=== PATIENT | male | born 1950 | race Hispanic/Latino ===

== ENCOUNTER 2018-09-21 13:08 | Emergency (ER) | payer OTHER ==
--- OUTSIDE RECORDS SUMMARY | 2018-09-21 13:11 | XMS REPORT | Clinical Summary ---
:1950 Author Organization [facility] Address [address] [place] [address] Care Team Providers Name Role Phone Sergio Morgan DO Primary Care Provider Allergies Not on File Medications No known medications Active Problems No known active problems Encounters Date Type Specialty Care Team Description 05/10/2018 Hospital Encounter Radiology Ankur Olivas MD 05/10/2018 Office Visit Orthopedic Surgery Ankur Olivas Metastatic bone MD Shaunna cancer (HCC) (Primary Dx) 05/03/2018 Office Visit Orthopedic Surgery Ankur Olivas Metastatic naeem Maza MD cancer (HCC) (Primary Dx) 02/01/2018 Orders Only Orthopedic Surgery Ankur Olivas Metastatic naeem Maza MD cancer (HCC) (Primary Dx) 01/18/2018 Office Visit Orthopedic Surgery Ankur Olivas Metastatic naeem Maza MD cancer (HCC) (Primary Dx) after 09/20/2017 Family History Medical History Relation Name Comments Diabetes Mother Alie Relation Name Status Comments Mother Alie Social History Tobacco Use Types Packs/Day Years Used Date Former Smoker Cigarettes 1 5 02/21/1974 - 02/21/1979 Sex Assigned at Date Recorded Not on file Job Start Date Occupation Industry Not on file Not on file Not on file Travel History Travel Start Travel End No recent travel history available. Last Filed Vital Signs Not on file Plan of Treatment Health Maintenance Due Date Last Done Comments COLONOSCOPY SCREENING 2002 SHINGLES VACCINES (#1) 2002 65+ PNEUMOCOCCAL VACCINE (1 of 2 - PCV13) 2017 INFLUENZA VACCINE 09/21/2018 Procedures Procedure Name Priority Date/Time Associated Diagnosis Comments XR FEMUR 2 VW LEFT Routine 05/03/2018 11:03 AM Metastatic bone Results for this CDT cancer (HCC) procedure are in the results section. CT CHEST EXTERNAL Routine 04/11/2018 9:09 AM Results for this STUDY LICENSED PRACTICAL NURSE procedure are in the results section. XR FEMUR 2 VW LEFT Routine 01/18/2018 1:46 PM Metastatic bone Results for this LICENSED PRACTICAL NURSE cancer (HCC) procedure are in the results section. after 09/20/2017 Results XR Femur 2 Vw Left (05/03/2018 11:03 AM CDT)Only the most recent of2 resultswithin the time period is included. Specimen Narrative Performed At [facility] lateral left femur x-ray and AP pelvis x-ray shows significant blastic [facility] changes throughout the pelvis and the left intertrochanteric area and proximal femur.There is no evidence of progressive tumor or progressive instability or fractures or other acute changes. Performing Organization Address [facility] Phone Number [facility] [address] [place] [address] CT Chest External Study (04/11/2018 9:09 AM LICENSED PRACTICAL NURSE) Specimen Narrative Performed At This exam was not acquired at a Amish facility and has not been [facility] interpreted by a Amish Provider.The exam was imported into our imaging system for comparisons purposes. Performing Organization Address City/[facility]ode Phone Number [facility] [address] [place] [address] after 09/20/2017 Advance Directives Patient has advance care planning documents on file. For more information, please contact:[address] [address]
[2018-09-21] MEDS ORDERED: NA CHLORIDE 0.9% 2,000 ML ONE (15:12)
[2018-09-21 15:31] LABS: Absolute Lymphocytes (CBC) 0.8 K/uL (0.7-4.9); Basophils % 0.5 % (0-1.3); Hematocrit 39.6 % (39.6-49.0); Lymphocytes % 16.9 % (15.3-44.8); MPV 8.9 fL (7.6-11.3); RBC Red Blood Cell Count 4.58 M/uL (4.33-5.43)
[2018-09-21 15:37] LABS: Protime INR 1.02
[2018-09-21 16:09] LABS: ALT/SGPT 17 U/L (12-78); AST/SGOT 13 U/L (15-37); Albumin 3.4 g/dL (3.4-5.0); Alkaline Phosphatase 1038 U/L (45-117); BUN Blood Urea Nitrogen 18 mg/dL (7-18); Bicarbonate 26 mmol/L (21-32); Bilirubin Direct 0.2 mg/dL (0-0.2); Bilirubin Total 0.8 mg/dL (0.2-1.0); CKMB Creatine Kinase MB < 1.0 ng/mL (0.3-3.6); Creatine Phosphokinase 68 U/L (39-308); Glucose Level 232 mg/dL (74-106); Lipase 107 U/L (73-393); Potassium 4.2 mmol/L (3.5-5.1); Protein, Total 7.4 g/dL (6.4-8.2); Sodium Level 136 mmol/L (136-145); Troponin (Emerg Dept Use Only) < 0.02 ng/mL (0.0-0.045)
[2018-09-21] MEDS ORDERED: FENTANYL CITR 100 MCG/2 ML ONE (16:12)
[2018-09-21] MEDS ORDERED: ONDANSETRON 4 MG/2 ML VIAL ONE (16:12)
[2018-09-21 16:39] LABS: Urine Blood NEGATIVE (NEG); Urine Glucose 2+ (NEG); Urine Protein 1+ (NEG)
[2018-09-21 17:00] LABS: Urine Bacteria <20 /HPF (NONE SEEN); Urine Culture Reflex Order NOT NEEDED; Urine RBC <5 /HPF (NONE SEEN)
--- NOTE | 2018-09-21 17:22 | EDPHYS ---
Physician Documentation [facility] Name: Shantanu Bernal Age: 68 yrs Sex: Male : 1950 Arrival Date: 09/21/2018 Time: 13:09 Bed 23 Private MD: ED Physician Cruz Bowen HPI: 09/21 16:13 This 68 yrs old Male presents to ER via Ambulatory with complaints of Doesn't jr8 Feel Right. 16:13 Patient with history of metastatic prostate cancer. Stated that he is currently doing jr8 both chemo and radiation along with infusions for bone metastates. Stated he feels more fatigued then normal . Onset: The symptoms/episode began/occurred acutely, today. Severity of symptoms: At their worst the symptoms were mild in the emergency department the symptoms are unchanged. The patient has not experienced similar symptoms in the past. The patient has not recently seen a physician. Historical: - Allergies: 13:27 No Known Allergies; aa5 - Home Meds: 13:27 metformin 1,000 mg Oral tr24 twice a day [Active]; glipizide 5 mg oral tr24 twice a day aa5 [Active]; Tylenol #3 Oral every 4-6 hours [Active]; prednisone 5 mg Oral tab 1 tab 2 times per day [Active]; enalapril maleate 10 mg Oral tab once daily [Active]; tamsulosin 0.4 mg oral cp24 1 cap once daily [Active]; calcium 500mg with Vitamin D3 400units [Active]; 13:30 abiraterone oral 250mg oral 2 tabs twice a day [Active]; aa5 - PMHx: 13:27 Prostate Cancer with metastasis to the bone; Diabetes - NIDDM; aa5 13:28 Hypertension; aa5 - Immunization history:: Adult Immunizations unknown. - Social history:: Smoking status: Patient/guardian denies using tobacco. - Ebola Screening: : No symptoms or risks identified at this time. ROS: 16:13 Eyes: Negative for injury, pain, redness, and discharge, ENT: Negative for injury, jr8 pain, and discharge, Neck: Negative for injury, pain, and swelling, Cardiovascular: Negative for chest pain, palpitations, and edema, Respiratory: Negative for shortness of breath, cough, wheezing, and pleuritic chest pain, Abdomen/GI: Negative for abdominal pain, nausea, vomiting, diarrhea, and constipation, Back: Negative for injury and pain, MS/Extremity: Negative for injury and deformity, Skin: Negative for injury, rash, and discoloration, Neuro: Negative for headache, weakness, numbness, tingling, and seizure. 16:13 Constitutional: Positive for fatigue. Exam: 16:13 Eyes: Pupils equal round and reactive to light, extra-ocular motions intact. Lids and jr8 lashes normal. Conjunctiva and sclera are non-icteric and not injected. Cornea within normal limits. Periorbital areas with no swelling, redness, or edema. ENT: Nares patent. No nasal discharge, no septal abnormalities noted. Tympanic membranes are normal and external auditory canals are clear. Oropharynx with no redness, swelling, or masses, exudates, or evidence of obstruction, uvula midline. Mucous membranes moist. Neck: Trachea midline, no thyromegaly or masses palpated, and no cervical lymphadenopathy. Supple, full range of motion without nuchal rigidity, or vertebral point tenderness. No Meningismus. Cardiovascular: Regular rate and rhythm with a normal S1 and S2. No gallops, murmurs, or rubs. Normal PMI, no JVD. No pulse deficits. Respiratory: Lungs have equal breath sounds bilaterally, clear to auscultation and percussion. No rales, rhonchi or wheezes noted. No increased work of breathing, no retractions or nasal flaring. Abdomen/GI: Soft, non-tender, with normal bowel sounds. No distension or tympany. No guarding or rebound. No evidence of tenderness throughout. Back: No spinal tenderness. No costovertebral tenderness. Full range of motion. Skin: Warm, dry with normal turgor. Normal color with no rashes, no lesions, and no evidence of cellulitis. MS/ Extremity: Pulses equal, no cyanosis. Neurovascular intact. Full, normal range of motion. Neuro: Awake and alert, GCS 15, oriented to person, place, time, and situation. Cranial nerves II-XII grossly intact. Motor strength 5/5 in all extremities. Sensory grossly intact. Cerebellar exam normal. Normal gait. Vital Signs: 13:23 BP 138 / 79; Pulse 101; Resp 18 S; Temp 99.5(O); Pulse Ox 97% on R/A; Weight 70.31 kg aa5 (R); Height 5 ft. 2 in. (157.48 cm) (R); Pain 8/10; 14:21 BP 117 / 66; Pulse 91; Resp 17; Temp 98.8(O); Pulse Ox 99% on R/A; tw2 15:17 BP 126 / 71; Pulse 98; Resp 19; Temp 98.5(O); Pulse Ox 100% on R/A; tw2 16:18 BP 148 / 74; Pulse 95; Resp 17; Pulse Ox 97% on R/A; tw2 17:01 BP 143 / 75; Pulse 91; Resp 17; Pulse Ox 98% on R/A; tw2 13:23 Body Mass Index 28.35 (70.31 kg, 157.48 cm) aa5 MDM: 14:57 Patient medically screened. 8 17:08 Data reviewed: vital signs, nurses notes, lab test result(s), EKG, radiologic studies, jr8 plain films. Data interpreted: Pulse oximetry: on room air is 98 %. Interpretation: normal. Counseling: I had a detailed discussion with the patient and/or guardian regarding: the historical points, exam findings, and any diagnostic results supporting the discharge/admit diagnosis, lab results, radiology results, the need for outpatient follow up, a family practitioner, to return to the emergency department if symptoms worsen or persist or if there are any questions or concerns that arise at home. ED course: No acute findings on labs, ecg, or imaging. No signs or indication for sepsis or neutropenia. Hemodynamically stable. Will d/c home to f/u with oncology and PCP. Fatigue probably sequela of the chemotherapy treatment . 09/21 15:03 Order name: Basic Metabolic Panel; Complete Time: 16:13 09/21 15:03 Order name: Blood Culture Adult (2) 09/21 15:03 Order name: CBC with Diff; Complete Time: 15:49 09/21 15:03 Order name: Ckmb; Complete Time: 16:13 09/21 15:03 Order name: CPK; Complete Time: 16:13 09/21 15:03 Order name: Lactate; Complete Time: 15:52 09/21 15:03 Order name: LFT's; Complete Time: 16:13 09/21 15:03 Order name: Lipase; Complete Time: 16:13 09/21 15:03 Order name: Procalcitonin; Complete Time: 16:13 09/21 15:03 Order name: Protime (+inr); Complete Time: 15:49 09/21 15:03 Order name: Ptt, Activated; Complete Time: 15:49 09/21 15:03 Order name: Troponin (emerg Dept Use Only); Complete Time: 16:13 09/21 15:03 Order name: Urine Microscopic Only; Complete Time: 17:08 09/21 15:22 Order name: Glucose, Ancillary Testing; Complete Time: 15:49 EDMS 09/21 15:03 Order name: Chest Single View XRAY 09/21 15:03 Order name: Accucheck; Complete Time: 15:15 09/21 15:03 Order name: Cardiac monitoring; Complete Time: 15:17 09/21 15:03 Order name: EKG - Nurse/Tech; Complete Time: 15:17 09/21 15:03 Order name: IV Saline Lock - Large Bore; Complete Time: 15:15 09/21 15:03 Order name: Labs collected and sent; Complete Time: 15:15 09/21 15:03 Order name: O2 Per Protocol; Complete Time: 15:15 09/21 15:03 Order name: O2 Sat Monitoring; Complete Time: 15:15 09/21 15:03 Order name: Urine Dipstick-Ancillary (obtain specimen); Complete Time: 16:26 09/21 16:25 Order name: Urine Dipstick--Ancillary (enter results); Complete Time: 16:50 eb Administered Medications: 15:16 Drug: NS 0.9% (30 ml/kg) 30 ml/kg Route: IV; Rate: bolus; Site: right antecubital; tw2 16:24 Follow up: Response: No adverse reaction; IV Status: Completed infusion; IV Intake: tw2 2000ml 16:15 Drug: Zofran 4 mg Route: IVP; Site: right antecubital; tw2 17:19 Follow up: Response: No adverse reaction tw2 16:17 Drug: fentaNYL (PF) 50 mcg Route: IVP; Site: right antecubital; tw2 17:19 Follow up: Response: No adverse reaction; Pain is decreased tw2 Point of Care Testing: Blood Glucose: 15:13 Blood Glucose: 268 mg/dL; lt1 Ranges: Critical Glucose Levels:Adult <50 mg/dl or >400 mg/dl <40 mg/dl or >180 mg/dl Disposition: 09/21/18 17:21 Discharged to Home. Impression: Neoplastic (malignant) related fatigue. - Condition is Stable. - Discharge Instructions: Fatigue. - Medication Reconciliation Form, Thank You Letter, Antibiotic Education, Prescription Opioid Use form. - Follow up: Private Physician; When: 2 - 3 days; Reason: Recheck today's complaints, Continuance of care, Re-evaluation by your physician. - Problem is new. - Symptoms have improved. Signatures: Dispatcher [employer] EDZeenat Lew RN RN aa5 Ja Barboza PA PA jr8 Katy Joy RN RN tw2 Corrections: (The following items were deleted from the chart) 13:30 13:27 Home Meds: oral chemotherapy; [email or web address] aa5 17:37 17:21 09/21/2018 17:21 Discharged to Home. Impression: Neoplastic (malignant) related tw2 fatigue. Condition is Stable. Forms are Medication Reconciliation Form, Thank You Letter, Antibiotic Education, Prescription Opioid Use. Follow up: Private Physician; When: 2 - 3 days; Reason: Recheck today's complaints, Continuance of care, Re-evaluation by your physician. Problem is new. Symptoms have improved. jr8
--- NOTE | 2018-09-21 17:22 | ER ---
Nurse's Notes [facility] Name: Shantanu Bernal Age: 68 yrs Sex: Male : 1950 Arrival Date: 09/21/2018 Time: 13:09 Bed 23 Private MD: Diagnosis: Neoplastic (malignant) related fatigue Presentation: 09/21 13:21 Presenting complaint: Patient states: "I've been feeling really tired and weak since aa5 Tuesday and my whole body hurts". Pt reports hx of prostate cancer and is currently taking oral chemotherapy. Pt denies cough, vomiting, diarrhea. Reports nausea. Transition of care: patient was not received from another setting of care. Onset of symptoms was August 2018. Risk Assessment: Do you want to hurt yourself or someone else? Patient reports no desire to harm self or others. Care prior to arrival: None. 13:21 Method Of Arrival: Ambulatory [facility] 13:21 Acuity: ERICA 2 aa5 13:23 Initial Sepsis Screen: Does the patient meet any 2 criteria? HR > 90 bpm. Does the aa5 patient have a suspected source of infection? No. Patient's initial sepsis screen is negative. Historical: - Allergies: 13:27 No Known Allergies; aa5 - Home Meds: 13:27 metformin 1,000 mg Oral tr24 twice a day [Active]; glipizide 5 mg oral tr24 twice a day aa5 [Active]; Tylenol #3 Oral every 4-6 hours [Active]; prednisone 5 mg Oral tab 1 tab 2 times per day [Active]; enalapril maleate 10 mg Oral tab once daily [Active]; tamsulosin 0.4 mg oral cp24 1 cap once daily [Active]; calcium 500mg with Vitamin D3 400units [Active]; 13:30 abiraterone oral 250mg oral 2 tabs twice a day [Active]; aa5 - PMHx: 13:27 Prostate Cancer with metastasis to the bone; Diabetes - NIDDM; aa5 13:28 Hypertension; aa5 - Immunization history:: Adult Immunizations unknown. - Social history:: Smoking status: Patient/guardian denies using tobacco. - Ebola Screening: : No symptoms or risks identified at this time. Screenin:13 Abuse screen: Denies threats or abuse. Nutritional screening: No deficits noted. tw2 Tuberculosis screening: No symptoms or risk factors identified. Fall Risk Secondary diagnosis (15 points) impaired mobility. Assessment: 14:22 General: Appears ill, slender, Behavior is calm, cooperative, appropriate for age. tw2 Pain: Complains of pain in "whole body". Neuro: Level of Consciousness is awake, alert, obeys commands, Oriented to person, place, time, situation. Cardiovascular: Heart tones S1 S2 Patient's skin is warm and dry. Respiratory: Airway is patent Respiratory effort is even, unlabored, Respiratory pattern is regular, symmetrical, Breath sounds are clear bilaterally. GI: No signs and/or symptoms were reported involving the gastrointestinal system. Abdomen is flat, Bowel sounds present X 4 quads. : No signs and/or symptoms were reported regarding the genitourinary system. EENT: No signs and/or symptoms were reported regarding the EENT system. Derm: No signs and/or symptoms reported regarding the dermatologic system. Musculoskeletal: Range of motion: intact in all extremities. 15:18 Reassessment: Patient appears in no apparent distress at this time. No changes from tw2 previously documented assessment. Patient and/or family updated on plan of care and expected duration. Pain level reassessed. 16:10 Reassessment: Patient and/or family updated on plan of care and expected duration. Pain tw2 level reassessed. pt c/o pain, provider notified, will medicate as ordered. Patient states symptoms have not improved. 17:33 Reassessment: Patient appears in no apparent distress at this time. No changes from tw2 previously documented assessment. Patient and/or family updated on plan of care and expected duration. Pain level reassessed. Vital Signs: 13:23 BP 138 / 79; Pulse 101; Resp 18 S; Temp 99.5(O); Pulse Ox 97% on R/A; Weight 70.31 kg aa5 (R); Height 5 ft. 2 in. (157.48 cm) (R); Pain 8/10; 14:21 BP 117 / 66; Pulse 91; Resp 17; Temp 98.8(O); Pulse Ox 99% on R/A; tw2 15:17 BP 126 / 71; Pulse 98; Resp 19; Temp 98.5(O); Pulse Ox 100% on R/A; tw2 16:18 BP 148 / 74; Pulse 95; Resp 17; Pulse Ox 97% on R/A; tw2 17:01 BP 143 / 75; Pulse 91; Resp 17; Pulse Ox 98% on R/A; tw2 13:23 Body Mass Index 28.35 (70.31 kg, 157.48 cm) aa5 ED Course: 13:09 Patient arrived in ED. as 13:23 Arm band placed on. aa5 13:28 Triage completed. aa5 14:13 Katy Joy, RN is Primary Nurse. tw2 14:13 Placed in gown. Bed in low position. audit intern on. Pulse ox on. NIBP on. tw2 14:57 Ja Barboza PA is PHCP. jr8 14:57 Cruz Bowen MD is Attending Physician. jr8 15:10 Initial lab(s) drawn, by me, sent to lab. First set of blood cultures drawn. Inserted tw2 saline lock: 20 gauge in right antecubital area, using aseptic technique. Blood collected. 15:28 EKG done, by process safety engineering technologist. reviewed by Ja CHOI. sm3 15:48 Chest Single View XRAY In Process Unspecified. EDMS 16:26 Urine Microscopic Only Sent. tw2 17:33 No provider procedures requiring assistance completed. IV discontinued, intact, tw2 bleeding controlled, No redness/swelling at site. Pressure dressing applied. Administered Medications: 15:16 Drug: NS 0.9% (30 ml/kg) 30 ml/kg Route: IV; Rate: bolus; Site: right antecubital; tw2 16:24 Follow up: Response: No adverse reaction; IV Status: Completed infusion; IV Intake: tw2 2000ml 16:15 Drug: Zofran 4 mg Route: IVP; Site: right antecubital; tw2 17:19 Follow up: Response: No adverse reaction tw2 16:17 Drug: fentaNYL (PF) 50 mcg Route: IVP; Site: right antecubital; tw2 17:19 Follow up: Response: No adverse reaction; Pain is decreased tw2 Point of Care Testing: Blood Glucose: 15:13 Blood Glucose: 268 mg/dL; lt1 Ranges: Intake: 16:24 IV: 2000ml; Total: 2000ml. tw2 Output: 16:23 Urine: 200ml (Voided); Total: 200ml. tw2 Outcome: 17:21 Discharge ordered by MD. harrington 17:34 Discharged to home via wheelchair, with family. tw2 17:34 Condition: stable 17:34 Discharge instructions given to patient, family, Instructed on discharge instructions, follow up and referral plans. Demonstrated understanding of instructions, follow-up care. 17:37 Patient left the ED. tw2 Signatures: Dispatcher [employer] EDSusan Najera Audri, RN RN aa5 Ja Barboza PA PA jr8 Katy Joy RN RN tw2 Bonita Mattson 3 Birgit Reynolds 1 Corrections: (The following items were deleted from the chart) 13:30 13:27 Home Meds: oral chemotherapy; aa5 aa5 16:25 16:18 BP 148 / 74; Pulse 108bpm; Resp 17bpm; Pulse Ox 97% RA; tw2 tw2
--- NOTE | 2018-09-21 18:53 | RAD REPORT ---
EXAM DESCRIPTION: Ori Single View09/21/2018 3:48 pm CLINICAL HISTORY: Fever COMPARISON: none FINDINGS: The lungs appear clear of acute infiltrate. The heart is normal size. Sclerotic bony metastases present
--- NOTE | 2018-09-22 12:36 | EKG ---
Test Date: 2018-09-21 Test Time: 15:18:31 Carder Blankets: HALIMA MEASUREMENT RESULTS: Intervals: Rate: 91 KS: 140 QRSD: 72 QT: 358 QTc: 440 [place]: P: 65 KS: 140 QRS: 52 T: 25 INTERPRETIVE STATEMENTS: Normal sinus rhythm Normal ECG No previous ECG available for comparison Electronically Signed On 09-22-18 12:33:04 CDT by Prasanna Grullon
== END 2018-09-21 17:37 | disposition home or self-care (01) ==
LOC: ER 13:08
DX: R53.83 Other fatigue (principal); C61 Malignant neoplasm of prostate; C79.51 Secondary malignant neoplasm of bone; E11.9 Type 2 diabetes mellitus without complications; I10 Essential (primary) hypertension; Z79.84 Long term (current) use of oral hypoglycemic drugs
CPT/HCPCS: 96365; 93005; 87040 ×2; 85025; 80048; 36415; 82550; 85610; 82962; 80076; 83605; 85730; 84484; 82553; 83690; 84145; 71045; 96375; 99285; J3010; J7030; J2405; 81003; 81015

== ENCOUNTER 2018-11-12 18:48 | Emergency (ER) | payer OTHER ==
--- OUTSIDE RECORDS SUMMARY | 2018-11-12 18:51 | XMS REPORT | Clinical Summary ---
:1950 Author Organization [facility] Address [address] [place] [address] Care Team Providers Name Role Phone Sergio [...] Maza MD cancer (HCC) (Primary Dx) after 11/11/2017 Family History Medical History Relation Name Comments [...] 04/11/2018 9:09 AM Results for this STUDY CHIEF ESTIMATOR procedure are in the results section. XR FEMUR 2 VW LEFT Routine 01/18/2018 1:46 PM Metastatic bone Results for this CHIEF ESTIMATOR cancer (HCC) procedure are in the results section. after 11/11/2017 Results XR Femur 2 Vw Left (05/03/2018 [...] or other acute changes. Performing Organization Address City/[facility] Phone Number [facility] [address] [place] [address] CT Chest External Study (04/11/2018 9:09 AM CHIEF ESTIMATOR) Specimen Narrative Performed At This exam was not acquired at a Taoism facility and has not been [facility] interpreted by a Taoism Provider.The exam was imported into our imaging system for comparisons purposes. Performing Organization Address City/[facility] Cent[facility]ode Phone Number [facility] [address] [place] [address] after 11/11/2017 Advance Directives For more information, please contact: [phone] Type Date Recorded Patient Manager Operating Explanation Advance Directives, Living Will and Medical Power of Business Dean
[2018-11-12] MEDS ORDERED: ONDANSETRON 4 MG/2 ML VIAL ONE (19:39)
[2018-11-12] MEDS ORDERED: MORPHINE 4 MG/ML SYR ONE (19:39)
[2018-11-12] MEDS ORDERED: FENTANYL CITR 100 MCG/2 ML ONE (21:04)
--- NOTE | 2018-11-12 21:28 | ER ---
Nurse's Notes [facility] Name: Shantanu Bernal Age: 68 yrs Sex: Male : 1950 Arrival Date: 11/12/2018 Time: 18:51 Bed 15 Private MD: Unknown, Unknown Diagnosis: Low back pain;Chronic back pain Presentation: 11/12 18:54 Presenting complaint: Child states: Lower back has been hurting badly since Tuesday la1 night. Transition of care: patient was not received from another setting of care. Onset of symptoms was November 12, 2018. Risk Assessment: Do you want to hurt yourself or someone else? Patient reports no desire to harm self or others. Initial Sepsis Screen: Does the patient meet any 2 criteria? No. Patient's initial sepsis screen is negative. Does the patient have a suspected source of infection? No. Patient's initial sepsis screen is negative. Care prior to arrival: None. 18:54 Method Of Arrival: Wheelchair la1 18:54 Acuity: ERICA 3 la1 Historical: - Allergies: 18:54 No Known Allergies; la1 - PMHx: 18:54 Diabetes - NIDDM; Hypertension; Prostate Cancer with metastasis to the bone; la1 - Immunization history:: Adult Immunizations up to date. - Social history:: Smoking status: unknown. - Ebola Screening: : No symptoms or risks identified at this time. Screenin:45 Abuse screen: Denies threats or abuse. Nutritional screening: No deficits noted. jb4 Tuberculosis screening: No symptoms or risk factors identified. Fall Risk IV access (20 points). Total Nunez Fall Scale indicates No Risk (0-24 pts). Assessment: 19:15 General: Appears in no apparent distress. uncomfortable, Behavior is calm, cooperative, jb4 appropriate for age, PT reports having a diagnoses of bone cancer. Is trying to manage pain at home, pain medications are not helping today.. Pain: Complains of pain in low back area, right leg and left leg Pain does not radiate. Pain currently is 10 out of 10 on a pain scale. Quality of pain is described as stabbing. Neuro: Level of Consciousness is awake, alert, obeys commands, Oriented to person, place, time, situation. Cardiovascular: Patient's skin is warm and dry. Respiratory: Airway is patent Respiratory effort is even, unlabored, Respiratory pattern is regular, symmetrical. GI: No deficits noted. No signs and/or symptoms were reported involving the gastrointestinal system. : No deficits noted. No signs and/or symptoms were reported regarding the genitourinary system. EENT: No deficits noted. No signs and/or symptoms were reported regarding the EENT system. Derm: Skin is intact, Skin is pink, warm \T\ dry. Musculoskeletal: Circulation, motion, and sensation intact. Range of motion: intact in all extremities. 20:30 Reassessment: Patient appears in no apparent distress at this time. Patient and/or jb4 family updated on plan of care and expected duration. Pain level reassessed. Patient is alert, oriented x 3, equal unlabored respirations, skin warm/dry/pink. 20:45 Reassessment: PT reports that morphine did not help, provider notified see [facility] for jb4 orders. 21:55 Reassessment: Patient appears in no apparent distress at this time. Patient and/or jb4 family updated on plan of care and expected duration. Pain level reassessed. Patient is alert, oriented x 3, equal unlabored respirations, skin warm/dry/pink. Vital Signs: 18:55 BP 171 / 82; Pulse 79; Resp 16; Temp 97.4; Pulse Ox 100% on R/A; Weight 63.05 kg; la1 Height 5 ft. 5 in. (165.10 cm); 20:30 BP 160 / 72; Pulse 76; Resp 18; Pulse Ox 98% on R/A; jb4 21:30 BP 158 / 65; Pulse 72; Resp 16; Pulse Ox 96% on R/A; jb4 18:55 Body Mass Index 23.13 (63.05 kg, 165.10 cm) la1 ED Course: 18:51 Patient arrived in ED. ag5 18:52 Unknown, Unknown is Private Physician. ag5 18:54 Arm band placed on right wrist. la1 18:55 Triage completed. la1 19:16 Matthew Bloom RN is Primary Nurse. jb4 19:20 Holland Ochoa MD is Attending Physician. tw4 19:36 Inserted saline lock: 20 gauge in right forearm, using aseptic technique. jb4 19:45 Patient has correct armband on for positive identification. Placed in gown. Bed in low jb4 position. Call light in reach. Side rails up X 1. Pulse ox on. NIBP on. 21:55 No provider procedures requiring assistance completed. IV discontinued, intact, jb4 bleeding controlled, No redness/swelling at site. Pressure dressing applied. Administered Medications: 19:41 Drug: Zofran 4 mg Route: IVP; Site: right antecubital; jb4 20:10 Follow up: Response: No adverse reaction; Nausea is decreased jb4 19:43 Drug: morphine 4 mg {Note: Rass score 0.} Route: IVP; Site: right forearm; jb4 20:45 Follow up: Response: No adverse reaction; Pain is unchanged, physician notified jb4 21:30 Drug: fentaNYL (PF) 25 mcg Route: IVP; Site: right forearm; jb4 21:55 Follow up: Response: No adverse reaction; Pain is decreased jb4 Outcome: 21:27 Discharge ordered by . tw4 21:55 Discharged to home via wheelchair, with family. jb4 21:55 Condition: stable 21:55 Discharge instructions given to patient, family, Instructed on discharge instructions, follow up and referral plans. medication usage, Demonstrated understanding of instructions, follow-up care, medications, Prescriptions given X 1. 21:58 Patient left the ED. jb4 Signatures: Ken Nguyen RN RN la1 Matthew Bloom RN RN jb4 Holland Ochoa MD MD tw4 Kailey Toney 5
--- NOTE | 2018-11-12 21:28 | EDPHYS ---
Physician Documentation [facility] Name: Shantanu Bernal Age: 68 yrs Sex: Male : 1950 Arrival Date: 11/12/2018 Time: 18:51 Bed 15 Private MD: Unknown, Unknown ED Physician Holland Ochoa HPI: 11/13 05:36 This 68 yrs old Male presents to ER via Wheelchair with complaints of Low Back tw4 Pain, Waist Pain. 05:36 The patient presents with pain that is chronic, with no known mechanism of injury. The tw4 symptoms are located in the low back. The pain does not radiate. The problem was sustained without known cause. Onset: The symptoms/episode began/occurred 1 month(s) ago, and became worse yesterday. Modifying factors: The patient symptoms are alleviated by nothing, the patient symptoms are aggravated by supine position. Associated signs and symptoms: The patient has no apparent associated signs or symptoms. Severity of symptoms: At their worst the symptoms were moderate, in the emergency department the symptoms are unchanged. The patient has not experienced similar symptoms in the past. Historical: - Allergies: 11/12 18:54 No Known Allergies; la1 - PMHx: 18:54 Diabetes - NIDDM; Hypertension; Prostate Cancer with metastasis to the bone; la1 - Immunization history:: Adult Immunizations up to date. - Social history:: Smoking status: unknown. - Ebola Screening: : No symptoms or risks identified at this time. ROS: 11/13 05:36 Constitutional: Negative for fever, chills, and weight loss, Eyes: Negative for injury, tw4 pain, redness, and discharge, Cardiovascular: Negative for chest pain, palpitations, and edema, Respiratory: Negative for shortness of breath, cough, wheezing, and pleuritic chest pain, Abdomen/GI: Negative for abdominal pain, nausea, vomiting, diarrhea, and constipation. MS/Extremity: Negative for injury and deformity, Skin: Negative for injury, rash, and discoloration, Neuro: Negative for headache, weakness, numbness, tingling, and seizure. Back: Positive for decreased range of motion, pain at rest, pain with movement, Negative for injury or acute deformity. Exam: 05:36 Constitutional: This is a well developed, well nourished patient who is awake, alert, tw4 and in no acute distress. Head/Face: Normocephalic, atraumatic. Chest/axilla: Normal chest wall appearance and motion. Nontender with no deformity. No lesions are appreciated. Cardiovascular: Regular rate and rhythm with a normal S1 and S2. No gallops, murmurs, or rubs. Normal PMI, no JVD. No pulse deficits. Respiratory: Lungs have equal breath sounds bilaterally, clear to auscultation and percussion. No rales, rhonchi or wheezes noted. No increased work of breathing, no retractions or nasal flaring. Abdomen/GI: Soft, non-tender, with normal bowel sounds. No distension or tympany. No guarding or rebound. No evidence of tenderness throughout. Back: No spinal tenderness. No costovertebral tenderness. Full range of motion. MS/ Extremity: Pulses equal, no cyanosis. Neurovascular intact. Full, normal range of motion. Neuro: Awake and alert, GCS 15, oriented to person, place, time, and situation. Cranial nerves II-XII grossly intact. Motor strength 5/5 in all extremities. Sensory grossly intact. Cerebellar exam normal. Normal gait. Vital Signs: 11/12 18:55 BP 171 / 82; Pulse 79; Resp 16; Temp 97.4; Pulse Ox 100% on R/A; Weight 63.05 kg; la1 Height 5 ft. 5 in. (165.10 cm); 20:30 BP 160 / 72; Pulse 76; Resp 18; Pulse Ox 98% on R/A; jb4 21:30 BP 158 / 65; Pulse 72; Resp 16; Pulse Ox 96% on R/A; jb4 18:55 Body Mass Index 23.13 (63.05 kg, 165.10 cm) la1 MDM: 19:21 Patient medically screened. tw4 11/13 05:36 Differential diagnosis: arthritis, strain, fracture, sciatica. Data reviewed: vital tw4 signs, nurses notes. Data interpreted: Pulse oximetry: Interpretation: normal. Counseling: I had a detailed discussion with the patient and/or guardian regarding: the historical points, exam findings, and any diagnostic results supporting the discharge/admit diagnosis. Medication response: morphine markedly relieved the patient's pain. Symptoms have improved. Response to treatment: and as a result, I will discharge patient. 11/12 21:43 Order name: Urine Dipstick--Ancillary (enter results) em1 11/12 19:39 Order name: IV Saline Lock; Complete Time: 19:39 jb4 11/12 20:57 Order name: Urine Dipstick-Ancillary (obtain specimen); Complete Time: 21:42 tw4 Administered Medications: 11/12 19:41 Drug: Zofran 4 mg Route: IVP; Site: right antecubital; jb4 20:10 Follow up: Response: No adverse reaction; Nausea is decreased jb4 19:43 Drug: morphine 4 mg {Note: Rass score 0.} Route: IVP; Site: right forearm; jb4 20:45 Follow up: Response: No adverse reaction; Pain is unchanged, physician notified jb4 21:30 Drug: fentaNYL (PF) 25 mcg Route: IVP; Site: right forearm; jb4 21:55 Follow up: Response: No adverse reaction; Pain is decreased jb4 Disposition: 11/13 05:39 Chart complete. tw4 Disposition: 11/12/18 21:27 Discharged to Home. Impression: Low back pain, Chronic back pain. - Condition is Stable. - Discharge Instructions: Back Pain, Adult, Chronic Back Pain. - Prescriptions for Tramadol 50 mg Oral Tablet - take 1 tablet by ORAL route every 8 hours as needed; 12 tablet. - Medication Reconciliation Form, Thank You Letter, Antibiotic Education, Prescription Opioid Use form. - Follow up: Private Physician; When: Upon discharge from the Emergency Department; Reason: If symptoms return, Recheck today's complaints, Continuance of care. - Problem is new. - Symptoms have improved. Signatures: Dispatcher [employer] EDMN Ken Nguyen RN RN la1 Matthew Bloom RN RN jb4 Holland Ochoa MD MD tw4 Corrections: (The following items were deleted from the chart) 11/12 21:58 21:27 11/12/2018 21:27 Discharged to Home. Impression: Low back pain; Chronic back jb4 pain. Condition is Stable. Forms are Medication Reconciliation Form, Thank You Letter, Antibiotic Education, Prescription Opioid Use. Follow up: Private Physician; When: Upon discharge from the Emergency Department; Reason: If symptoms return, Recheck today's complaints, Continuance of care. Problem is new. Symptoms have improved. tw4
[2018-11-12 22:06] LABS: Urine Blood NEGATIVE (NEG); Urine Glucose 2+ (NEG); Urine Protein 1+ (NEG); Urine Specific Gravity 1.025 (1.005-1.030); Urine pH 5.5 (5.0-7.0)
[2018-11-12 22:37] VITALS: BP 171/82; TEMP 97.4; O2SAT 100
== END 2018-11-12 21:58 | disposition home or self-care (01) ==
LOC: ER 18:48
DX: G89.29 Other chronic pain (principal); I10 Essential (primary) hypertension; Z85.46 Personal history of malignant neoplasm of prostate; Z85.830 Personal history of malignant neoplasm of bone
CPT/HCPCS: 81003; J3010; J2405; 99284

== ENCOUNTER 2018-11-30 10:57 | Observation (INO) | payer OTHER ==
[2018-11-30 13:12] VITALS: BMI 21.6
[2018-11-30] MEDS ORDERED: ONDANSETRON 4 MG/2 ML VIAL IV PRN (14:54)
[2018-11-30 15:16] LABS: Absolute Lymphocytes (CBC) 1.4 K/uL (0.7-4.9); Basophils % 0.7 % (0-1.3); Lymphocytes % 23.4 % (15.3-44.8); MPV 7.7 fL (7.6-11.3); RBC Red Blood Cell Count 3.54 M/uL (4.33-5.43)
[2018-11-30] MEDS ORDERED: PNEUMOCOCCAL VACCINE 0.5 ML IMVAC ONE (16:00)
[2018-11-30] MEDS ORDERED: INFLUENZA VACCINE (for 3y+) 0.5 ML DOSE IMVAC ONE (16:00)
--- NOTE | 2018-11-30 16:22 | P.HP ---
Certification for Inpatient Patient admitted to: Inpatient With expected LOS: >2 Midnights Practitioner: I am a practitioner with admitting privileges, knowledge of patient current condition, hospital course, and medical plan of care. Services: Services provided to patient in accordance with Admission requirements found in Title 42 Section 412.3 of the Code of Federal Regulations Patient History Date of Service: 11/30/18 Primary Care Provider: Dr. Chicas Reason for admission: Failure to thrive History of Present Illness: This is a 68 yr old male with a history of prostate cancer with mets to the bone who has been undergoing chemotherapy with Dr. Caputo for 8 months who was a direct admit from her office for failure to thrive. His chemotherapy pills were discontinued last week. He continues to complain of nausea with anything PO. He complains of no pain at this time. Denies fevers, chills, cp, sob, vision changes, BRENNAN, speech changes or other GI or complaints. His labs are pending. At the time of my exam, he is alert, orientedx3, and in no acute distress. He will be admitted for further evaluation and management. Allergies No Known Allergies Allergy (Verified 11/30/18 11:21) Home medications list reviewed: Yes Home Medications: Enalapril [Vasotec] 10 mg PO DAILY 11/30/18 Hydrocodone 5/APAP 325 [[place] 5/325] 1 tab PO Q6H PRN 11/30/18 Linagliptin [Tradjenta] 5 mg PO DAILY 11/30/18 Metformin HCl 1,000 mg PO BID 11/30/18 Ondansetron [Zofran] 4 mg PO TID 11/30/18 Tamsulosin [Flomax] 0.4 mg PO DAILY 11/30/18 fentaNYL [Fentanyl] 1 each TD Q72H PRN 11/30/18 glipiZIDE [Glipizide] 10 mg PO BID 11/30/18 predniSONE [Deltasone] 5 mg PO BID 11/30/18 - Past Medical/Surgical History Has patient received pneumonia vaccine in the past: No -: HTN -: DMII -: Prostate CA mets to bone - Social History Smoking Status: Never smoker Alcohol use: No CD- Drugs: No Caffeine use: No Place of Residence: Home Review of Systems 10-point ROS is otherwise unremarkable Physical Examination - Vital Signs Temperature: 97.9 F Blood Pressure: 135/59 Pulse: 74 Respirations: 18 Pulse Ox (%): 98 - Physical Exam General: Alert, In no apparent distress, Cachectic, Other (elderly, frail) HEENT: Atraumatic, PERRLA, Mucous membr. moist/pink, EOMI, Sclerae nonicteric Neck: Supple, 2+ carotid pulse no bruit, No LAD, Without JVD or thyroid abnormality Respiratory: Clear to auscultation bilaterally, Normal air movement Cardiovascular: Regular rate/rhythm, Normal S1 S2 Gastrointestinal: Normal bowel sounds, No tenderness Musculoskeletal: No tenderness Integumentary: No rashes Neurological: Normal gait, Normal speech, Normal strength at 5/5 x4 extr, Normal tone, Normal affect Lymphatics: No axilla or inguinal lymphadenopathy - Studies Laboratory Data (last 24 hrs) 11/30/18 15:08: WBC 6.1, Hgb 10.7 L, Hct 30.0 L, Plt Count 364 Assessment and Plan - Problems (Diagnosis) (1) Failure to thrive Current Visit: Yes Status: Acute Qualifiers: Failure to thrive age range: in adult Qualified Code(s): R62.7 - Adult failure to thrive (2) Intractable nausea and vomiting Current Visit: Yes Status: Acute (3) Diabetes mellitus Current Visit: Yes Status: Acute Qualifiers: Diabetes mellitus type: type 2 Diabetes mellitus snf insulin use: without technician terminal and repeater use Diabetes mellitus complication status: without complication Qualified Code(s): E11.9 - Type 2 diabetes mellitus without complications (4) HTN (hypertension) Current Visit: Yes Status: Acute Qualifiers: Hypertension type: essential hypertension Qualified Code(s): I10 - Essential (primary) hypertension (5) Prostate cancer metastatic to bone Current Visit: Yes Status: Chronic - Plan -Admit to floor with tele -IV hydration -Labs pending -Abdominal CT -PT evaluation -Pain control -Resume home medications as tolerated Disposition: Pending symptomatic improvement; will discharge once able to tolerate more PO. He will then continue outpatient management with Dr. Caputo. - Advance Directives Does patient have a Living Will: No Does patient have a Durable POA for Healthcare: No
[2018-11-30] MEDS ORDERED: HOME MED 1 EA UNK (Fentanyl [Fentanyl] 1 EACH) TD PRN (16:23)
[2018-11-30] MEDS ORDERED: HYDROCODONE/APAP 5/325 MG TAB PO PRN (16:23)
[2018-11-30] MEDS ORDERED: MORPHINE 2 MG/ML SYR IV PRN (16:24)
[2018-11-30 16:25] LABS: ALT/SGPT 14 U/L (12-78); AST/SGOT 54 U/L (15-37); Alkaline Phosphatase 1451 U/L (45-117); BUN Blood Urea Nitrogen 11 mg/dL (7-18); Bicarbonate 31 mmol/L (21-32); Bilirubin Total 0.4 mg/dL (0.2-1.0); Glucose Level 147 mg/dL (74-106); Potassium 3.7 mmol/L (3.5-5.1); Protein, Total 6.7 g/dL (6.4-8.2); Sodium Level 141 mmol/L (136-145)
[2018-11-30] MEDS: ONDANSETRON 4 MG/2 ML VIAL IV SCH (17:56)
[2018-11-30] MEDS: predniSONE 5 MG TAB PO SCH (21:22)
[2018-12-01] MEDS: ONDANSETRON 4 MG/2 ML VIAL IV SCH ×4 (00:13→17:25)
[2018-12-01] MEDS: NA CHLORIDE 0.9% 1,000 ML IV SCH ×2 (02:56→14:29)
[2018-12-01 06:53] LABS: Absolute Lymphocytes (CBC) 1.1 K/uL (0.7-4.9); Basophils % 0.6 % (0-1.3); Hematocrit 28.5 % (39.6-49.0); Lymphocytes % 18.8 % (15.3-44.8); MPV 8.5 fL (7.6-11.3); RBC Red Blood Cell Count 3.33 M/uL (4.33-5.43)
[2018-12-01 07:39] LABS: ALT/SGPT 13 U/L (12-78); AST/SGOT 37 U/L (15-37); Albumin 2.7 g/dL (3.4-5.0); Alkaline Phosphatase 1354 U/L (45-117); BUN Blood Urea Nitrogen 10 mg/dL (7-18); Bicarbonate 29 mmol/L (21-32); Bilirubin Total 0.5 mg/dL (0.2-1.0); Glucose Level 159 mg/dL (74-106); Potassium 4.1 mmol/L (3.5-5.1); Protein, Total 6.1 g/dL (6.4-8.2); Sodium Level 140 mmol/L (136-145)
[2018-12-01 08:20] VITALS: O2SAT 98
[2018-12-01] MEDS ORDERED: TAMSULOSIN 0.4 MG SR CAP PO SCH (09:00)
[2018-12-01] MEDS ORDERED: ENALAPRIL 10 MG TAB PO SCH (09:00)
[2018-12-01] MEDS ORDERED: FENTANYL 25 MCG/PATCH TD PRN (09:00)
[2018-12-01] MEDS: predniSONE 5 MG TAB PO SCH (09:49)
--- NOTE | 2018-12-01 12:31 | P.PN ---
Subjective Date of Service: 12/01/18 Primary Care Provider: Dr. Chicas Chief Complaint: Failure to thrive Subjective: No C/O voiced, Improving Patient seen and examined at bedside. family at bedside. Chart reviewed and case discussed with nursing staff. No acute events noted overnight. No complaints this morning. Reports improved pain and nausea. Tolerated half his meal this morning for breakfast Review of Systems 10-point ROS is otherwise unremarkable Physical Examination - Vital Signs Temperature: 98.0 F Blood Pressure: 138/65 Pulse: 79 Respirations: 16 Pulse Ox (%): 97 - Physical Exam General: Alert, In no apparent distress, Other (Elderly, frail. Looks older than stated) HEENT: Atraumatic, PERRLA, EOMI Neck: Supple, JVD not distended Respiratory: Clear to auscultation bilaterally, Normal air movement Cardiovascular: Regular rate/rhythm, Normal S1 S2 Gastrointestinal: Normal bowel sounds, No tenderness Musculoskeletal: No tenderness Integumentary: No rashes Neurological: Normal speech, Normal tone, Normal affect Lymphatics: No axilla or inguinal lymphadenopathy - Studies Laboratory Data (last 24 hrs) 12/01/18 05:49: Sodium 140, Potassium 4.1, BUN 10, Creatinine 0.51 L, Glucose 159 H, Total Bilirubin 0.5, AST 37, ALT 13, Alkaline Phosphatase 1354 H 12/01/18 05:49: WBC 5.9, Hgb 9.8 L, Hct 28.5 L, Plt Count 296 11/30/18 15:08: Sodium 141, Potassium 3.7, BUN 11, Creatinine 0.50 L, Glucose 147 H, Total Bilirubin 0.4, AST 54 H, ALT 14, Alkaline Phosphatase 1451 H 11/30/18 15:08: WBC 6.1, Hgb 10.7 L, Hct 30.0 L, Plt Count 364 Assessment And Plan - Current Problems (Diagnosis) (1) Failure to thrive Current Visit: Yes Status: Acute Qualifiers: Failure to thrive age range: in adult Qualified Code(s): R62.7 - Adult failure to thrive (2) Intractable nausea and vomiting Current Visit: Yes Status: Acute (3) Diabetes mellitus Current Visit: Yes Status: Acute Qualifiers: Diabetes mellitus type: type 2 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 insulin use: without watermelon harvesting supervisor use Diabetes mellitus complication status: without complication Qualified Code(s): E11.9 - Type 2 diabetes mellitus without complications (4) HTN (hypertension) Current Visit: Yes Status: Acute Qualifiers: Hypertension type: essential hypertension Qualified Code(s): I10 - Essential (primary) hypertension (5) Prostate cancer metastatic to bone Current Visit: Yes Status: Chronic - Plan -continue IV hydration -Labs stable -Abdominal CT ordered, pending -PT evaluation -Pain control -Resume home medications as tolerated Disposition: Pending symptomatic improvement; pending abdominal CT as well as physical therapy evaluation. If doing well and abdominal CT with no acute abnormalities, anticipate discharge in the next 24 hr. He will then continue outpatient management with Dr. Caputo.
--- NOTE | 2018-12-01 14:30 | RAD REPORT ---
EXAM DESCRIPTION: CT - Abdomen W Contrast - 12/01/2018 2:00 pm CLINICAL HISTORY: Abdominal pain COMPARISON: 2018 TECHNIQUE: Computed axial tomography from the diaphragm to the iliac crest was obtained. Oral contra st was given. 100 cc Isovue-[address] scans are performed using dose optimization technique as appropriate and may include automated exposure control or mA/KV adjustment according to patient size. FINDINGS:. The liver, spleen, adrenals, pancreas and kidneys appear grossly normal. No ascites is seen. 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
[2018-12-01 16:30] VITALS: BP 138/63; TEMP 98.4
--- NOTE | 2018-12-01 18:45 | P.SSS ---
Patient History Date of Service: 12/01/18 Primary Care Provider: Dr. Chcias Reason for admission: Failure to thrive History of Present Illness: This is a 68 yr old male with a history of prostate cancer with mets to the bone who has been undergoing chemotherapy with Dr. Caputo for 8 months who was a direct admit from her office for failure to thrive. His chemotherapy pills were discontinued last week. He continues to complain of nausea with anything PO. He complains of no pain at this time. Denies fevers, chills, cp, sob, vision changes, BRENNAN, speech changes or other GI or complaints. His labs are pending. At the time of my exam, he is alert, orientedx3, and in no acute distress. He will be admitted for further evaluation and management. Allergies No Known Allergies Allergy (Verified 11/30/18 11:21) Home medications list reviewed: Yes Home Medications: Enalapril [Vasotec*] 10 mg PO DAILY 11/30/18 Hydrocodone 5/APAP 325 [[place] 5/325*] 1 tab PO Q6H PRN 11/30/18 Linagliptin [Tradjenta] 5 mg PO DAILY 11/30/18 Metformin HCl 1,000 mg PO BID 11/30/18 Ondansetron [Zofran (Odt)*] 4 mg PO TID 11/30/18 Tamsulosin [Flomax*] 0.4 mg PO DAILY 11/30/18 fentaNYL [Fentanyl] 1 each TD Q72H PRN 11/30/18 glipiZIDE [Glipizide] 10 mg PO BID 11/30/18 predniSONE [Prednisone*] 5 mg PO BID 11/30/18 - Past Medical/Surgical History Has patient received pneumonia vaccine in the past: No -: HTN -: DMII -: Prostate CA mets to bone - Social History Smoking Status: Never smoker Alcohol use: No CD- Drugs: No Caffeine use: No Place of Residence: Home Review of Systems 10-point ROS is otherwise unremarkable Physical Examination - Vital Signs Temperature: 98.4 F Blood Pressure: 138/63 Pulse: 78 Respirations: 16 Pulse Ox (%): 97 - Physical Exam General: Alert, In no apparent distress, Cachectic HEENT: Atraumatic, PERRLA, Mucous membr. moist/pink, EOMI, Sclerae nonicteric Neck: Supple, 2+ carotid pulse no bruit, No LAD, Without JVD or thyroid abnormality Respiratory: Clear to auscultation bilaterally, Normal air movement Cardiovascular: Regular rate/rhythm, Normal S1 S2 Gastrointestinal: Normal bowel sounds, No tenderness Musculoskeletal: No tenderness Integumentary: No rashes Neurological: Normal gait, Normal speech, Normal strength at 5/5 x4 extr, Normal tone, Normal affect Lymphatics: No axilla or inguinal lymphadenopathy - Studies Laboratory Data (last 24 hrs) 12/01/18 05:49: Sodium 140, Potassium 4.1, BUN 10, Creatinine 0.51 L, Glucose 159 H, Total Bilirubin 0.5, AST 37, ALT 13, Alkaline Phosphatase 1354 H 12/01/18 05:49: WBC 5.9, Hgb 9.8 L, Hct 28.5 L, Plt Count 296 - Diagnosis (Problem(s)) (1) Failure to thrive Current Visit: Yes Status: Acute Qualifiers: Failure to thrive age range: in adult Qualified Code(s): R62.7 - Adult failure to thrive (2) Intractable nausea and vomiting Current Visit: Yes Status: Acute (3) Diabetes mellitus Current Visit: Yes Status: Acute Qualifiers: Diabetes mellitus type: type 2 Diabetes mellitus group home insulin use: without group home use Diabetes mellitus complication status: without complication Qualified Code(s): E11.9 - Type 2 diabetes mellitus without complications (4) HTN (hypertension) Current Visit: Yes Status: Acute Qualifiers: Hypertension type: essential hypertension Qualified Code(s): I10 - Essential (primary) hypertension (5) Prostate cancer metastatic to bone Current Visit: Yes Status: Chronic Treatment Summary: Patient was admitted for IV hydration. His labs were stable. Abdominal CT was ordered, there was noted metastasis but otherwise no other acute abnormalities noted. He did well with physical therapy. He did tolerate more than 75% of his meal prior to discharge. He was doing well, in no acute distress and hemodynamically stable. He will continue outpatient management follow up with . - Disposition Discharge Date: 12/01/18 Disposition: ROUTINE DISCHARGE Condition: FAIR Patient Discharge Instructions: Please follow up with the primary care physician in 2-3 days. Please follow up with Oncology as scheduled. Please return to the emergency room for worsening symptoms. Diet: Regular Activity: Ad crys Time Spent Managing Pts Care (In Minutes): 45
== END 2018-12-01 19:45 | disposition home or self-care (01) ==
LOC: INTOOBSV 10:57 → 4TH 10:57
PROVIDERS: ADMIT Family Medicine; ATTEND Family Medicine
DX: R62.7 Adult failure to thrive (principal); Z68.21 Body mass index [BMI] 21.0-21.9, adult; I10 Essential (primary) hypertension; E11.9 Type 2 diabetes mellitus without complications; R11.2 Nausea with vomiting, unspecified; C61 Malignant neoplasm of prostate; C79.51 Secondary malignant neoplasm of bone; Z23 Encounter for immunization
CPT/HCPCS: 85025 ×2; 36415 ×2; 82962 ×6; 80053 ×2; 74160; 90471 ×2; 90670; 97116; 97161; 94760 ×3; Q9967; G0379; Q2035; J7030 ×3; J2405 ×5; G0378 ×3; J7512

== ENCOUNTER 2018-12-09 18:25 | Emergency (ER) | payer OTHER ==
[2018-12-09] MEDS ORDERED: MORPHINE 4 MG/ML SYR ONE (18:42)
[2018-12-09] MEDS ORDERED: ONDANSETRON 4 MG/2 ML VIAL ONE (18:43)
[2018-12-09] MEDS ORDERED: FENTANYL 50 MCG/PATCH TD ONE (19:25)
--- NOTE | 2018-12-09 20:20 | EDPHYS ---
Physician Documentation [facility] Name: Shantanu Bernal Age: 68 yrs Sex: Male : 1950 Arrival Date: 12/09/2018 Time: 18:28 Bed 23 Private MD: ED Physician Dominic Alfaro HPI: 12/09 18:44 This 68 yrs old Male presents to ER via Wheelchair with complaints of Pain All pm1 Over - cancer. 18:44 The patient presents with pain that is chronic, with no known mechanism of injury. The pm1 symptoms are located in the low back. Onset: The symptoms/episode began/occurred 2 month(s) ago, and became worse yesterday. The pain radiates to the right leg and left leg. Associated signs and symptoms: Pertinent negatives: dysuria, fever, headache, numbness, tingling, vomiting, weakness. 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 Severity of symptoms: in the emergency department the symptoms are actually worse. has stopped chemotherapy 3 weeks ago because the cancer is not responding to the medication . Patient does not want any imaging or blood work. Wants medications for pain management. Currently he is just taking over the counter medications. Historical: - Allergies: 18:42 No Known Allergies; ss - PMHx: 18:42 Diabetes - NIDDM; Hypertension; Prostate Cancer with metastasis to the bone; ss - Immunization history:: Adult Immunizations up to date. - Social history:: Smoking status: Patient/guardian denies using tobacco. - Ebola Screening: : Patient denies exposure to infectious person Patient denies travel to an Ebola-affected area in the 21 days before illness onset. ROS: 18:44 Constitutional: Negative for fever, chills, and weight loss, Cardiovascular: Negative pm1 for chest pain, palpitations, and edema, Respiratory: Negative for shortness of breath, cough, wheezing, and pleuritic chest pain, Abdomen/GI: Negative for abdominal pain, nausea, vomiting, diarrhea, and constipation. 18:44 : Negative for injury, bleeding, discharge, and swelling, MS/Extremity: Negative for injury and deformity, Skin: Negative for injury, rash, and discoloration, Neuro: Negative for headache, weakness, numbness, tingling, and seizure. 18:44 Back: Positive for of the low back area. 18:44 All other systems are negative. Exam: 18:44 Constitutional: This is a well developed, well nourished patient who is awake, alert, pm1 and in no acute distress. Head/Face: Normocephalic, atraumatic. Neck: Trachea midline, no thyromegaly or masses palpated, and no cervical lymphadenopathy. Supple, full range of motion without nuchal rigidity, or vertebral point tenderness. No Meningismus. Chest/axilla: Normal chest wall appearance and motion. Nontender with no deformity. No lesions are appreciated. Cardiovascular: Regular rate and rhythm with a normal S1 and S2. No gallops, murmurs, or rubs. Normal PMI, no JVD. No pulse deficits. Respiratory: Lungs have equal breath sounds bilaterally, clear to auscultation and percussion. No rales, rhonchi or wheezes noted. No increased work of breathing, no retractions or nasal flaring. Abdomen/GI: Soft, non-tender, with normal bowel sounds. No distension or tympany. No guarding or rebound. No evidence of tenderness throughout. 18:44 Skin: Warm, dry with normal turgor. Normal color with no rashes, no lesions, and no evidence of cellulitis. MS/ Extremity: Pulses equal, no cyanosis. Neurovascular intact. Full, normal range of motion. 18:44 Back: pain, that is mild, of the low back area, normal spinal alignment noted. 18:44 Neuro: Orientation: is normal, Motor: is normal, moves all fours, 5/5 strength with dorsiflexion and plantar flexion of bilateral toes, Sensation: is normal, no obvious gross deficits. Vital Signs: 18:42 BP 153 / 69; Pulse 82; Resp 16; Temp 98.2(TE); Pulse Ox 100% on R/A; Weight 57.15 kg; ss Height 5 ft. 5 in. (165.10 cm); Pain 10/10; 20:00 BP 161 / 80; Pulse 80; Resp 17; Pulse Ox 100% ; tr5 18:42 Body Mass Index 20.97 (57.15 kg, 165.10 cm) ss MDM: 18:37 Patient medically screened. pm1 20:10 Data reviewed: vital signs. Data interpreted: Pulse oximetry: on room air is 100 %. pm1 Interpretation: normal. Counseling: I had a detailed discussion with the patient and/or guardian regarding: the historical points, exam findings, and any diagnostic results supporting the discharge/admit diagnosis, the need for outpatient follow up, to return to the emergency department if symptoms worsen or persist or if there are any questions or concerns that arise at home. 20:13 ED course: Patient was administered fentanyl patch instead of fentanyl IV. Patient pm1 typically takes fentanyl for pain but currently does not have anymore patches. Patient reports that his pain has improved to 5/10 and he believes that it is comfortable enough to go home and sleep. Will give the patient Toradol to see if it can improve his pain more and patient can follow up with his PCP, pain management or oncology for further chronic pain management. 12/09 18:44 Order name: IV Saline Lock; Complete Time: 18:52 pm1 Administered Medications: 18:46 Drug: Zofran 4 mg Route: IVP; Site: right forearm; ss 20:34 Follow up: Response: Marked relief of symptoms tr5 18:48 Drug: morphine 4 mg Route: IVP; Site: right forearm; ss 20:35 Follow up: Response: Pain is decreased tr5 20:15 CANCELLED (Physician Discretion): fentaNYL (PF) 50 mcg IVP once; RASS on ADMIN: tr5 Combtv4, Very Agttd3, Agttd2, Rstlss1, AlertClm0, Drwsy-1, Lt Sdtn-2, Mod Sdtn-3, Dp Sdtn-4, UnArsble-5 20:16 Drug: fentaNYL Patch (50 mcg/hr) 1 patches {Note: RASS:0.} Route: Transdermal; Site: tr5 abdomen; 20:34 Follow up: Response: Pain is decreased tr5 20:25 Drug: TORadol - Ketorolac 15 mg Route: IVP; Site: right forearm; tr5 20:34 Follow up: Response: Marked relief of symptoms tr5 Disposition: 12/09/18 20:20 Discharged to Home. Impression: Low back pain. - Condition is Stable. - Discharge Instructions: Back Pain, Adult, Chronic Back Pain. - Medication Reconciliation Form, Thank You Letter, Antibiotic Education, Prescription Opioid Use form. - Follow up: Emergency Department; When: As needed; Reason: Worsening of condition. Follow up: Private Physician; When: 2 - 3 days; Reason: Recheck today's complaints, Continuance of care, Re-evaluation by your physician. - Problem is new. - Symptoms have improved. Signatures: Yocasta Alaniz RN RN Raj Doan COSTUME CUTTER COSTUME CUTTER pm1 Seven Abreu RN RN tr5 Corrections: (The following items were deleted from the chart) 20:15 19:13 fentaNYL (PF) 50 mcg IVP once; RASS on ADMIN: Combtv4, Very Agttd3, Agttd2, tr5 Rstlss1, AlertClm0, Drwsy-1, Lt Sdtn-2, Mod Sdtn-3, Dp Sdtn-4, UnArsble-5 ordered. pm1 20:15 19:29 fentaNYL (PF) 50 mcg IVP once; RASS on ADMIN: Combtv4, Very Agttd3, Agttd2, tr5 Rstlss1, AlertClm0, Drwsy-1, Lt Sdtn-2, Mod Sdtn-3, Dp Sdtn-4, UnArsble-5 given. tr5 20:15 20:15 fentaNYL (PF) 50 mcg IVP once; RASS on ADMIN: Combtv4, Very Agttd3, Agttd2, tr5 Rstlss1, AlertClm0, Drwsy-1, Lt Sdtn-2, Mod Sdtn-3, Dp Sdtn-4, UnArsble-5 ordered. tr5 20:36 20:20 12/09/2018 20:20 Discharged to Home. Impression: Low back pain. Condition is tr5 Stable. Forms are Medication Reconciliation Form, Thank You Letter, Antibiotic Education, Prescription Opioid Use. Follow up: Emergency Department; When: As needed; Reason: Worsening of condition. Follow up: Private Physician; When: 2 - 3 days; Reason: Recheck today's complaints, Continuance of care, Re-evaluation by your physician. Problem is new. Symptoms have improved. pm1
--- NOTE | 2018-12-09 20:20 | ER ---
Nurse's Notes [facility] Name: Shantanu Bernal Age: 68 yrs Sex: Male : 1950 Arrival Date: 12/09/2018 Time: 18:28 Bed 23 Private MD: Diagnosis: Low back pain Presentation: 12/09 18:39 Presenting complaint: Patient states: bilateral hip and upper leg pain that has been ss ongoing as patient ceased chemo treatments 3 weeks ago for prostate and bone CA. Family report they have an appointment with local oncologist to figure out a plan of care next Tuesday. Transition of care: patient was not received from another setting of care. Onset of symptoms is unknown. Risk Assessment: Do you want to hurt yourself or someone else? Patient reports no desire to harm self or others. Initial Sepsis Screen: Does the patient meet any 2 criteria? No. Patient's initial sepsis screen is negative. Does the patient have a suspected source of infection? No. Patient's initial sepsis screen is negative. Care prior to arrival: None. 18:39 Method Of Arrival: Wheelchair ss 18:39 Acuity: ERICA 4 ss Historical: - Allergies: 18:42 No Known Allergies; ss - PMHx: 18:42 Diabetes - NIDDM; Hypertension; Prostate Cancer with metastasis to the bone; ss - Immunization history:: Adult Immunizations up to date. - Social history:: Smoking status: Patient/guardian denies using tobacco. - Ebola Screening: : Patient denies exposure to infectious person Patient denies travel to an Ebola-affected area in the 21 days before illness onset. Screenin:48 Abuse screen: Denies threats or abuse. Nutritional screening: No deficits noted. em Tuberculosis screening: No symptoms or risk factors identified. Fall Risk None identified. Assessment: 18:45 General: Appears in no apparent distress. uncomfortable, Behavior is calm, cooperative, em Denies fever. Pain: Complains of pain in pelvis, right leg and left leg Pain currently is 10 out of 10 on a pain scale. Neuro: Level of Consciousness is awake, alert, obeys commands, Oriented to person, place, time, situation, Appropriate for age. Cardiovascular: Capillary refill < 3 seconds Patient's skin is warm and dry. Respiratory: Airway is patent Respiratory effort is even, unlabored, Respiratory pattern is regular, symmetrical. GI: Abdomen is flat, Patient currently denies nausea, vomiting. Derm: Skin is intact, is healthy with good turgor, Skin is pink, warm \T\ dry. Musculoskeletal: Capillary refill < 3 seconds, Range of motion: intact in all extremities. 20:00 Reassessment: Patient appears in no apparent distress at this time. Patient and/or tr5 family updated on plan of care and expected duration. Pain level reassessed. Patient is alert, oriented x 3, equal unlabored respirations, skin warm/dry/pink. Vital Signs: 18:42 BP 153 / 69; Pulse 82; Resp 16; Temp 98.2(TE); Pulse Ox 100% on R/A; Weight 57.15 kg; ss Height 5 ft. 5 in. (165.10 cm); Pain 10/10; 20:00 BP 161 / 80; Pulse 80; Resp 17; Pulse Ox 100% ; tr5 18:42 Body Mass Index 20.97 (57.15 kg, 165.10 cm) ss ED Course: 18:28 Patient arrived in ED. as 18:31 Matthew Mcdermott LVN is Primary Nurse. em 18:32 Raj Doan NP is PHCP. pm1 18:32 Dominic Alfaro MD is Attending Physician. pm1 18:41 Triage completed. ss 18:42 Arm band placed on right wrist. ss 18:45 Inserted saline lock: 22 gauge in right forearm, using aseptic technique. em 18:48 Patient has correct armband on for positive identification. Placed in gown. Call light em in reach. Adult w/ patient. Pulse ox on. NIBP on. 20:29 No provider procedures requiring assistance completed. IV discontinued. tr5 Administered Medications: 18:46 Drug: Zofran 4 mg Route: IVP; Site: right forearm; ss 20:34 Follow up: Response: Marked relief of symptoms tr5 18:48 Drug: morphine 4 mg Route: IVP; Site: right forearm; ss 20:35 Follow up: Response: Pain is decreased tr5 20:15 CANCELLED (Physician Discretion): fentaNYL (PF) 50 mcg IVP once; RASS on ADMIN: tr5 Combtv4, Very Agttd3, Agttd2, Rstlss1, AlertClm0, Drwsy-1, Lt Sdtn-2, Mod Sdtn-3, Dp Sdtn-4, UnArsble-5 20:16 Drug: fentaNYL Patch (50 mcg/hr) 1 patches {Note: RASS:0.} Route: Transdermal; Site: tr5 abdomen; 20:34 Follow up: Response: Pain is decreased tr5 20:25 Drug: TORadol - Ketorolac 15 mg Route: IVP; Site: right forearm; tr5 20:34 Follow up: Response: Marked relief of symptoms tr5 Outcome: 20:20 Discharge ordered by MD. pm1 20:29 Discharged to home ambulatory. tr5 20:29 Condition: stable 20:29 Discharge instructions given to patient, family, Instructed on discharge instructions, follow up and referral plans. Demonstrated understanding of instructions, follow-up care. 20:36 Patient left the ED. tr5 Signatures: Matthew Mcdermott, POWERHOUSE OPERATOR POWERHOUSE OPERATOR Susan Fraire Shelby, RN RN ss Raj Doan, SHEET TAKER SHEET TAKER pm1 Seven Abreu RN RN tr5 Corrections: (The following items were deleted from the chart) 20:15 19:28 fentaNYL (PF) 50 mcg IVP in Other tr5 tr5 20:26 20:16 fentaNYL Patch (50 mcg/hr) 1 patches Transdermal in abdomen tr5 tr5
[2018-12-09] MEDS ORDERED: KETOROLAC 30 MG/ML INJ ONE (20:21)
[2018-12-09 20:51] VITALS: TEMP 98.2; O2SAT 100
[2018-12-09 20:52] VITALS: BP 161/80
== END 2018-12-09 20:36 | disposition home or self-care (01) ==
LOC: ER 18:25
DX: G89.3 Neoplasm related pain (acute) (chronic) (principal); C61 Malignant neoplasm of prostate; C79.51 Secondary malignant neoplasm of bone; I10 Essential (primary) hypertension
CPT/HCPCS: 96375; 96374; 99283; J2405

== ENCOUNTER 2018-12-10 13:39 | Emergency (ER) | payer OTHER ==
[2018-12-10 15:39] LABS: Absolute Lymphocytes (CBC) 1.4 K/uL (0.7-4.9); Basophils % 0.5 % (0-1.3); Hematocrit 30.1 % (39.6-49.0); Lymphocytes % 16.1 % (15.3-44.8); MPV 7.9 fL (7.6-11.3); RBC Red Blood Cell Count 3.63 M/uL (4.33-5.43)
[2018-12-10 15:53] LABS: BUN Blood Urea Nitrogen 10 mg/dL (7-18); Bicarbonate 29 mmol/L (21-32); Glucose Level 202 mg/dL (74-106); Potassium 3.2 mmol/L (3.5-5.1); Sodium Level 135 mmol/L (136-145)
--- NOTE | 2018-12-10 15:54 | RAD REPORT ---
EXAM DESCRIPTION: CT - Stone Protocol - 12/10/2018 3:29 pm CLINICAL HISTORY: Abdominal pain. COMPARISON: December 01, 2018 TECHNIQUE: Computed axial tomography of the abdomen pelvis was obtained without oral or IV contrast. Lack of IV and oral contrast limits evaluation of solid organs, bowel, and vessels. Coronal reformat alva images were obtained and reviewed. All CT scans are performed using dose optimization technique as appropriate and may include automated exposure control or mA/KV adjustment according to patient size. FINDINGS: A renal calculus is not seen. An ureteral calculus is not noted. A bladder calculus is not present. No hydronephrosis The liver, spleen, pancreas and adrenals appear grossly normal There is no evidence of diverticulitis. Extensive sclerotic bony lesions IMPRESSION: Negative for a genitourinary calculus Extensive sclerotic bony lesions likely representing blastic metastases prostate carcinoma
--- NOTE | 2018-12-10 16:12 | ER ---
Nurse's Notes [facility] Name: Shantanu Bernal Age: 68 yrs Sex: Male : 1950 Arrival Date: 12/10/2018 Time: 13:40 Bed 6 Private MD: Diagnosis: Secondary malignant neoplasm of bone;Fever, unspecified Presentation: 12/10 13:51 Presenting complaint: Pain all over x 3 weeks. Seen in ED yesterday for same s/s. hb Transition of care: patient was not received from another setting of care. Onset of symptoms was December 10, 2018. Risk Assessment: Do you want to hurt yourself or someone else? Patient reports no desire to harm self or others. Care prior to arrival: None. 13:51 Method Of Arrival: Ambulatory hb 13:51 Acuity: ERICA 3 hb 14:15 Initial Sepsis Screen: Does the patient meet any 2 criteria? No. Patient's initial aa5 sepsis screen is negative. Does the patient have a suspected source of infection? No. Patient's initial sepsis screen is negative. Historical: - Allergies: 13:51 No Known Allergies; hb - PMHx: 14:00 Diabetes - NIDDM; Hypertension; Prostate Cancer with metastasis to the bone; aa5 - Immunization history:: Adult Immunizations unknown. - Social history:: Smoking status: Patient/guardian denies using tobacco. - Ebola Screening: : No symptoms or risks identified at this time. Screenin:15 Abuse screen: Denies threats or abuse. Nutritional screening: No deficits noted. aa5 Tuberculosis screening: No symptoms or risk factors identified. Fall Risk None identified. Assessment: 13:55 General: Appears comfortable, Behavior is calm, cooperative. Pain: Complains of pain in aa5 lumbar area, left low back and right low back Pain radiates to right leg and left leg Pain currently is 10 out of 10 on a pain scale. Quality of pain is described as "It's a bad pain and I couldn't sleep last night" Is continuous. Neuro: Level of Consciousness is awake, alert, obeys commands, Oriented to person, place, time, situation. Cardiovascular: Heart tones S1 S2 present Rhythm is regular. Respiratory: Airway is patent Respiratory effort is even, unlabored, Respiratory pattern is regular, symmetrical. GI: Abdomen is flat, non-distended, Bowel sounds present X 4 quads. Abd is soft and non tender X 4 quads. Patient currently denies nausea, vomiting. : No signs and/or symptoms were reported regarding the genitourinary system. EENT: No signs and/or symptoms were reported regarding the EENT system. Derm: Skin is pink, warm \\T\\ dry. Fentanyl patch noted. Musculoskeletal: Range of motion: intact in all extremities. 15:08 Reassessment: Pt taken to CT via stretcher. . aa5 15:08 Reassessment: Patient is alert, oriented x 3, equal unlabored respirations, skin aa5 warm/dry/pink. 16:10 Reassessment: Patient is alert, oriented x 3, equal unlabored respirations, skin aa5 warm/dry/pink. 17:35 Reassessment: Patient is alert, oriented x 3, equal unlabored respirations, skin aa5 warm/dry/pink. Pt sitting up in bed, pt's family remains at bedside. Awaiting chest x-ray result, pt notified of wait time . 18:20 Reassessment: Patient is alert, oriented x 3, equal unlabored respirations, skin aa5 warm/dry/pink. Vital Signs: 13:51 BP 132 / 82; Pulse 88; Resp 16; Temp 98; Pulse Ox 100% on R/A; Weight 57.15 kg; Height hb 5 ft. 5 in. (165.10 cm); Pain 10/10; 15:08 BP 178 / 90; Pulse 91; Resp 16 S; Pulse Ox 99% on R/A; aa5 16:10 BP 159 / 79; Pulse 98; Resp 18 S; Temp 101.3(O); Pulse Ox 100% on R/A; aa5 17:35 BP 169 / 78; Pulse 93; Resp 16 S; Temp 98.0(O); Pulse Ox 96% on R/A; aa5 13:51 Body Mass Index 20.97 (57.15 kg, 165.10 cm) hb 16:10 MD notified of increased temperature aa5 ED Course: 13:40 Patient arrived in ED. as 13:51 Arm band placed on. hb 13:52 Triage completed. hb 14:00 Zeenat Snyder, RN is Primary Nurse. aa5 14:15 Patient has correct armband on for positive identification. Bed in low position. Call aa5 light in reach. Side rails up X2. Adult w/ patient. 14:48 Dominic Alfaro MD is Attending Physician. gs 15:10 Initial lab(s) drawn, by me, sent to lab. Inserted saline lock: 18 gauge in right aa5 antecubital area, using aseptic technique. Blood collected. 15:30 CT Stone Protocol In Process Unspecified. EDMS 17:09 XRAY Chest Pa And Lat (2 Views) In Process Unspecified. EDMS 18:20 No provider procedures requiring assistance completed. IV discontinued, intact, aa5 bleeding controlled, No redness/swelling at site. Pressure dressing applied. Administered Medications: 16:21 Drug: Tylenol 650 mg Route: PO; aa5 17:44 Follow up: Response: No adverse reaction; Temperature is decreased aa5 Outcome: 16:10 Discharge ordered by . gs 18:20 Discharged to home ambulatory, with family. aa5 18:20 Condition: stable 18:20 Discharge instructions given to patient, Instructed on discharge instructions, follow up and referral plans. Demonstrated understanding of instructions, follow-up care. 18:24 Patient left the ED. aa5 Signatures: Dispatcher [employer] Susan Mac Audri RN RN aa5 Jen Sharp RN RN Dominic Alfaro MD MD Corrections: (The following items were deleted from the chart) 17:14 13:51 Acuity: ERICA 4 hb hb 17:44 16:10 Pulse 98bpm; Resp 18bpm; Spontaneous; Pulse Ox 100% RA; Temp 101.3F Oral; MD shook5 notified of increased temperature ; aa5
--- NOTE | 2018-12-10 16:12 | EDPHYS ---
Physician Documentation [facility] Name: Shantanu Bernal Age: 68 yrs Sex: Male : 1950 Arrival Date: 12/10/2018 Time: 13:40 Bed 6 Private MD: ED Physician Dominic Alfaro HPI: 12/10 16:00 This 68 yrs old Male presents to ER via Ambulatory with complaints of Pain All gs Over. 16:00 The symptoms are located in the low back. Onset: The symptoms/episode began/occurred 1 gs month(s) ago, and became worse and became persistent. The pain does not radiate. Associated signs and symptoms: Pertinent negatives: incontinence, urinary retention. Modifying factors: The patient symptoms are alleviated by nothing, the patient symptoms are aggravated by nothing. Severity of symptoms: At their worst the symptoms were severe, in the emergency department the symptoms are unchanged. The patient has experienced similar episodes in the past, chronically. Historical: - Allergies: 13:51 No Known Allergies; hb - PMHx: 14:00 Diabetes - NIDDM; Hypertension; Prostate Cancer with metastasis to the bone; aa5 - Immunization history:: Adult Immunizations unknown. - Social history:: Smoking status: Patient/guardian denies using tobacco. - Ebola Screening: : No symptoms or risks identified at this time. ROS: 16:00 All other systems are negative. gs Exam: 16:00 Head/Face: Normocephalic, atraumatic. Eyes: Pupils equal round and reactive to light, gs extra-ocular motions intact. Lids and lashes normal. Conjunctiva and sclera are non-icteric and not injected. Cornea within normal limits. Periorbital areas with no swelling, redness, or edema. ENT: Nares patent. No nasal discharge, no septal abnormalities noted. Tympanic membranes are normal and external auditory canals are clear. Oropharynx with no redness, swelling, or masses, exudates, or evidence of obstruction, uvula midline. Mucous membranes moist. Neck: Trachea midline, no thyromegaly or masses palpated, and no cervical lymphadenopathy. Supple, full range of motion without nuchal rigidity, or vertebral point tenderness. No Meningismus. Chest/axilla: Normal chest wall appearance and motion. Nontender with no deformity. No lesions are appreciated. Cardiovascular: Regular rate and rhythm with a normal S1 and S2. No gallops, murmurs, or rubs. Normal PMI, no JVD. No pulse deficits. Respiratory: Lungs have equal breath sounds bilaterally, clear to auscultation and percussion. No rales, rhonchi or wheezes noted. No increased work of breathing, no retractions or nasal flaring. Abdomen/GI: Soft, non-tender, with normal bowel sounds. No distension or tympany. No guarding or rebound. No evidence of tenderness throughout. Back: No spinal tenderness. No costovertebral tenderness. Full range of motion. Skin: Warm, dry with normal turgor. Normal color with no rashes, no lesions, and no evidence of cellulitis. MS/ Extremity: Pulses equal, no cyanosis. Neurovascular intact. Full, normal range of motion. Neuro: Awake and alert, GCS 15, oriented to person, place, time, and situation. Cranial nerves II-XII grossly intact. Motor strength 5/5 in all extremities. Sensory grossly intact. Cerebellar exam normal. Normal gait. 16:00 Constitutional: The patient appears alert, awake. Vital Signs: 13:51 BP 132 / 82; Pulse 88; Resp 16; Temp 98; Pulse Ox 100% on R/A; Weight 57.15 kg; Height hb 5 ft. 5 in. (165.10 cm); Pain 10/10; 15:08 BP 178 / 90; Pulse 91; Resp 16 S; Pulse Ox 99% on R/A; aa5 16:10 BP 159 / 79; Pulse 98; Resp 18 S; Temp 101.3(O); Pulse Ox 100% on R/A; aa5 17:35 BP 169 / 78; Pulse 93; Resp 16 S; Temp 98.0(O); Pulse Ox 96% on R/A; aa5 13:51 Body Mass Index 20.97 (57.15 kg, 165.10 cm) hb 16:10 MD notified of increased temperature aa5 MDM: 15:07 Patient medically screened. gs 16:00 Differential diagnosis: Epidural or Perispinal Bleed Fracture Metastatic Disease. Data gs reviewed: vital signs, nurses notes. Counseling: I had a detailed discussion with the patient and/or guardian regarding: the historical points, exam findings, and any diagnostic results supporting the discharge/admit diagnosis. 10/20 15:02 Order name: CBC with Diff; Complete Time: 15:56 12/10 15:02 Order name: Basic Metabolic Panel; Complete Time: 15:56 12/10 16:12 Order name: Influenza Screen (a \T\ B); Complete Time: 16:47 12/10 16:13 Order name: Urine Microscopic Only; Complete Time: 16:47 12/10 16:41 Order name: Urine Culture [facility] 12/10 16:45 Order name: Urine Dipstick--Ancillary (enter results); Complete Time: 18:16 bd 12/10 15:02 Order name: CT Stone Protocol; Complete Time: 15:59 12/10 16:13 Order name: Urine Dipstick-Ancillary (obtain specimen); Complete Time: 16:31 12/10 16:48 Order name: XRAY Chest Pa And Lat (2 Views) Administered Medications: 16:21 Drug: Tylenol 650 mg Route: PO; aa 17:44 Follow up: Response: No adverse reaction; Temperature is decreased [facility] Disposition: 12/10/18 16:10 Discharged to Home. Impression: Secondary malignant neoplasm of bone, Fever, unspecified. - Condition is Stable. - Discharge Instructions: Fever, Adult, Bone Metastasis. - Medication Reconciliation Form, Thank You Letter, Antibiotic Education, Prescription Opioid Use form. - Follow up: Private Physician; When: 1 - 2 days; Reason: Re-evaluation by your physician. Signatures: Dispatcher [employer] [facility] Zeenat Snyder RN RN aa5 Jen Sharp RN RN Dominic Alfaro MD MD Corrections: (The following items were deleted from the chart) 18:13 16:10 12/10/2018 16:10 Discharged to Home. Impression: Secondary malignant neoplasm of gs bone. Condition is Stable. Forms are Medication Reconciliation Form, Thank You Letter, Antibiotic Education, Prescription Opioid Use. Follow up: Private Physician; When: 1 - 2 days; Reason: Re-evaluation by your physician. 18:24 18:13 12/10/2018 16:10 Discharged to Home. Impression: Secondary malignant neoplasm of aa5 bone; Fever, unspecified. Condition is Stable. Forms are Medication Reconciliation Form, Thank You Letter, Antibiotic Education, Prescription Opioid Use. Follow up: Private Physician; When: 1 - 2 days; Reason: Re-evaluation by your physician. gs
[2018-12-10] MEDS ORDERED: ACETAMINOPHEN 325 MG TABLET ONE (16:13)
[2018-12-10 16:39] LABS: Urine Bacteria <20 /HPF (NONE SEEN); Urine Culture Reflex Order REFLEXED
[2018-12-10 17:02] LABS: Urine Blood NEGATIVE (NEG); Urine Glucose 2+ (NEG); Urine Protein 1+ (NEG)
[2018-12-10 18:38] VITALS: BP 169/78; TEMP 98; O2SAT 96
--- NOTE | 2018-12-10 19:12 | RAD REPORT ---
EXAM DESCRIPTION: Ori Staples (2 Views)12/10/2018 5:11 pm CLINICAL HISTORY: Fever COMPARISON: September 2018 FINDINGS: The lungs appear clear of acute infiltrate. The heart is normal size Extensive blastic bony metastases
== END 2018-12-10 18:24 | disposition home or self-care (01) ==
LOC: ER 13:39
DX: C79.51 Secondary malignant neoplasm of bone (principal); C63.7 Malignant neoplasm of other specified male genital organs; I10 Essential (primary) hypertension
CPT/HCPCS: 36415; 71046; 74176; 76377; 80048; 81003; 81015; 85025; 87086; 87088; 87804; 99284

== ENCOUNTER 2018-12-15 11:43 | Emergency (ER) | payer OTHER ==
[2018-12-15 12:48] LABS: Basophils % 0.9 % (0-1.3); Hematocrit 27.6 % (39.6-49.0); Lymphocytes % 20.5 % (15.3-44.8); MPV 7.7 fL (7.6-11.3); RBC Red Blood Cell Count 3.28 M/uL (4.33-5.43)
[2018-12-15 13:06] LABS: ALT/SGPT 24 U/L (12-78); AST/SGOT 160 U/L (15-37); Albumin 2.6 g/dL (3.4-5.0); BUN Blood Urea Nitrogen 10 mg/dL (7-18); Bicarbonate 29 mmol/L (21-32); Bilirubin Direct 0.1 mg/dL (0-0.2); Bilirubin Total 0.3 mg/dL (0.2-1.0); Glucose Level 225 mg/dL (74-106); Lipase 109 U/L (73-393); Potassium 3.4 mmol/L (3.5-5.1); Protein, Total 6.9 g/dL (6.4-8.2); Sodium Level 137 mmol/L (136-145)
[2018-12-15 13:10] LABS: Blood Morphology Comment NOT SEEN (NOT SEEN); Platelet Estimate ADEQ; Urine White Blood Cell Casts OK
[2018-12-15] MEDS ORDERED: HYDROMORPHONE HCL 1 MG/ML INJ ONE (13:13)
[2018-12-15] MEDS ORDERED: NA CHLORIDE 0.9% 100 ML IV ONE (13:13)
[2018-12-15 13:17] LABS: Alkaline Phosphatase 1611 U/L (45-117)
--- NOTE | 2018-12-15 13:19 | ER ---
Nurse's Notes [facility] Name: Shantanu Benral Age: 68 yrs Sex: Male : 1950 Arrival Date: 12/15/2018 Time: 11:45 Bed 7 Private MD: Unknown, Unknown Diagnosis: Chronic pain syndrome;Neoplasm related pain (acute) (chronic) Presentation: 12/15 12:16 Presenting complaint: Patient states: low back pain radiating to both legs, hx of bone iw cancer, on chemo pills, went to see Dr. Forrester but she was unavailable, pt states he had morphine before and that helped some. Transition of care: patient was not received from another setting of care. Onset of symptoms was December 15, 2018. Risk Assessment: Do you want to hurt yourself or someone else? Patient reports no desire to harm self or others. Initial Sepsis Screen: Does the patient meet any 2 criteria? No. Patient's initial sepsis screen is negative. Does the patient have a suspected source of infection? No. Patient's initial sepsis screen is negative. Care prior to arrival: None. 12:16 Method Of Arrival: Wheelchair iw 12:16 Acuity: ERICA 4 iw Historical: - Allergies: 12:22 No Known Allergies; iw - PMHx: 12:22 Diabetes - NIDDM; Hypertension; Prostate Cancer with metastasis to the bone; iw - PSHx: 12:22 None; iw - Immunization history:: Adult Immunizations up to date. - Social history:: Smoking status: Patient/guardian denies using tobacco. - Ebola Screening: : Patient negative for fever greater than or equal to 101.5 degrees Fahrenheit, and additional compatible Ebola Virus Disease symptoms Patient denies exposure to infectious person Patient denies travel to an Ebola-affected area in the 21 days before illness onset No symptoms or risks identified at this time. Screenin:25 Abuse screen: Denies threats or abuse. Nutritional screening: No deficits noted. aa5 Tuberculosis screening: No symptoms or risk factors identified. Fall Risk None identified. Assessment: 12:22 General: Appears comfortable, Behavior is calm, cooperative, 25mcg Fentanyl patch and aa5 50mcg Fentanyl patch noted to low back. Pt states "my changes the patches every other day" . Pain: Complains of pain in lower back Pain radiates to right leg and left leg Pain currently is 10 out of 10 on a pain scale. Quality of pain is described as sharp, Pain began chronic Is continuous. Neuro: Level of Consciousness is awake, alert, obeys commands, Oriented to person, place, time, situation. Cardiovascular: Heart tones S1 S2 present Rhythm is regular. Respiratory: Airway is patent Respiratory effort is even, unlabored, Respiratory pattern is regular, symmetrical. GI: Abdomen is flat, non-distended, Bowel sounds present X 4 quads. Abd is soft and non tender X 4 quads. Patient currently denies constipation, diarrhea, nausea, vomiting. : No signs and/or symptoms were reported regarding the genitourinary system. Denies burning with urination, inability to void. EENT: No signs and/or symptoms were reported regarding the EENT system. Derm: Skin is pink, warm \\T\\ dry. Musculoskeletal: Range of motion: intact in all extremities. 13:20 Reassessment: Patient is alert, oriented x 3, equal unlabored respirations, skin aa5 warm/dry/pink. Dilaudid infusing at this time. Pt's daughter at bedside. . 14:10 Reassessment: Patient is alert, oriented x 3, equal unlabored respirations, skin aa5 warm/dry/pink. Patient states feeling better. Patient states symptoms have improved. Pt states "the pain is way better now, it's almost gone" . Vital Signs: 12:22 Pulse 88; Resp 16 S; Temp 98.2; Pulse Ox 100% on R/A; Weight 56.7 kg; Height 5 ft. 5 iw in. (165.10 cm); Pain 10/10; 12:22 BP 172 / 71; aa5 14:00 BP 158 / 74; Pulse 82; Resp 16 S; Temp 98.0(TE); Pulse Ox 100% on R/A; Pain 2/10; aa5 12:22 Body Mass Index 20.80 (56.70 kg, 165.10 cm) iw ED Course: 11:45 Patient arrived in ED. ag5 11:45 Unknown, Unknown is Private Physician. ag5 12:11 Cruz Bowen MD is Attending Physician. kdr 12:17 Zeenat Snyder, BART is Primary Nurse. aa5 12:20 Triage completed. iw 12:22 Arm band placed on. iw 12:22 Patient has correct armband on for positive identification. Placed in gown. Bed in low aa5 position. Call light in reach. Side rails up X2. Adult w/ patient. 12:40 Initial lab(s) drawn, by me, sent to lab. Inserted saline lock: 20 gauge in right aa5 antecubital area, using aseptic technique. Blood collected. 14:10 No provider procedures requiring assistance completed. IV discontinued, intact, aa5 bleeding controlled, No redness/swelling at site. Pressure dressing applied. Administered Medications: 13:16 Drug: Dilaudid 1 mg Route: IVP; Site: right antecubital; aa5 13:46 Follow up: Response: No adverse reaction; Infusion completed. Marked relief of symptoms aa5 noted. Intake: Outcome: 13:18 Discharge ordered by . kdr 14:10 Discharged to home via wheelchair, with family. aa5 14:10 Condition: improved 14:10 Discharge instructions given to patient, family, Instructed on discharge instructions, follow up and referral plans. Demonstrated understanding of instructions, follow-up care, Pt was instructed by Dr. Bowen to increase to 2 patches of Fentanyl 50mcg every 2 days instead of 25 mcg patch and 50 mcg patch every 2 days. 14:19 Patient left the ED. aa5 Signatures: Cruz Bowen MD MD kdr Annabella Laureano RN RN Zeenat Snyder RN RN aa5 Kailey Toney ag5 Corrections: (The following items were deleted from the chart) 14:38 12:15 Abuse screen: Denies threats or abuse. aa5 aa5 14:38 12:15 Nutritional screening: No deficits noted. aa5 aa5 14:38 12:15 Tuberculosis screening: No symptoms or risk factors identified. aa5 aa5 14:38 12:15 Fall Risk None identified. aa5 aa5 12/16 08:16 10 15:40 Reassessment: Patient is alert, oriented x 3, equal unlabored respirations, aa5 skin warm/dry/pink. Patient states feeling better. Patient states symptoms have improved. Pt states "the pain is way better now, it's almost gone" . aa5
--- NOTE | 2018-12-15 13:19 | EDPHYS ---
Physician Documentation [facility] Name: Shantanu Bernal Age: 68 yrs Sex: Male : 1950 Arrival Date: 12/15/2018 Time: 11:45 Bed 7 Private MD: Unknown, Unknown ED Physician Cruz Bowen HPI: 12/15 14:28 This 68 yrs old Male presents to ER via Wheelchair with complaints of Leg kdr Pain, Back Pain. 14:28 The patient presents with the patient has prostate cancer with mets to his spine. He is kdr on fentanyl patch 25/50 mcg every other day. His is having recurrent pain exacerbations and difficult pain control. The complaints affect the low back area. Context: The problem was sustained at home, resulted from an unknown cause. Onset: The symptoms/episode began/occurred This is intermittent pain related to his cancer. Modifying factors: the symptoms are aggravated by. Associated signs and symptoms: The patient has no apparent associated signs or symptoms. Treatment prior to arrival includes: prescription medications. Severity of symptoms: At their worst the symptoms were mild, in the emergency department the symptoms are unchanged. The patient has not experienced similar symptoms in the past. Historical: - Allergies: 12:22 No Known Allergies; iw - PMHx: 12:22 Diabetes - NIDDM; Hypertension; Prostate Cancer with metastasis to the bone; iw - PSHx: 12:22 None; iw - Immunization history:: Adult Immunizations up to date. - Social history:: Smoking status: Patient/guardian denies using tobacco. - Ebola Screening: : Patient negative for fever greater than or equal to 101.5 degrees Fahrenheit, and additional compatible Ebola Virus Disease symptoms Patient denies exposure to infectious person Patient denies travel to an Ebola-affected area in the 21 days before illness onset No symptoms or risks identified at this time. ROS: 14:28 Constitutional: Negative for fever, chills, and weight loss. kdr 14:28 Back: Positive for pain at rest, pain with movement, of the low back area. Exam: 14:28 Constitutional: This is a well developed, well nourished patient who is awake, alert, kdr and in no acute distress. Head/Face: Normocephalic, atraumatic. Eyes: Pupils equal round and reactive to light, extra-ocular motions intact. Lids and lashes normal. Conjunctiva and sclera are non-icteric and not injected. Cornea within normal limits. Periorbital areas with no swelling, redness, or edema. Neck: Trachea midline, no thyromegaly or masses palpated, and no cervical lymphadenopathy. Supple, full range of motion without nuchal rigidity, or vertebral point tenderness. No Meningismus. Vital Signs: 12:22 Pulse 88; Resp 16 S; Temp 98.2; Pulse Ox 100% on R/A; Weight 56.7 kg; Height 5 ft. 5 iw in. (165.10 cm); Pain 10/10; 12:22 BP 172 / 71; aa5 14:00 BP 158 / 74; Pulse 82; Resp 16 S; Temp 98.0(TE); Pulse Ox 100% on R/A; Pain 2/10; aa5 12:22 Body Mass Index 20.80 (56.70 kg, 165.10 cm) iw MDM: 13:18 Patient medically screened. kdr 14:28 Data reviewed: vital signs, nurses notes. Counseling: I had a detailed discussion with kdr the patient and/or guardian regarding: the historical points, exam findings, and any diagnostic results supporting the discharge/admit diagnosis, the need for outpatient follow up. Special discussion: I discussed with the patient/guardian in detail that at this point there is no indication for admission to the hospital. It is understood, however, that if the symptoms persist or worsen the patient needs to return immediately for re-evaluation. 12/15 12:11 Order name: Basic Metabolic Panel [facility] 12/15 12:11 Order name: CBC with Diff [facility] 12/15 12:11 Order name: Creatinine for Radiology; Complete Time: 13:13 kdr 12/15 12:11 Order name: Hepatic Function kdr 12/15 12:11 Order name: Lipase kdr 12/15 13:10 Order name: CBC Smear Scan EDMS 12/15 12:11 Order name: IV Saline Lock; Complete Time: 12:43 [facility] 12/15 12:11 Order name: Labs collected and sent; Complete Time: 12:43 kdr Administered Medications: 13:16 Drug: Dilaudid 1 mg Route: IVP; Site: right antecubital; aa5 13:46 Follow up: Response: No adverse reaction; Infusion completed. Marked relief of symptoms aa5 noted. Disposition: 12/15/18 13:18 Discharged to Home. Impression: Chronic pain syndrome, Neoplasm related pain (acute) (chronic). - Condition is Stable. - Discharge Instructions: Chronic Pain, Musculoskeletal Pain. - Medication Reconciliation Form, Thank You Letter, Prescription Opioid Use form. - Follow up: Private Physician; When: 2 - 3 days; Reason: If symptoms return, Further diagnostic work-up, Recheck today's complaints, Continuance of care, Re-evaluation by your physician. - Problem is an acute exacerbation. - Symptoms have improved. - Notes: Change your pain patches to two 50mcg every other day. Signatures: Dispatcher [employer] EDMS Cruz Bowen MD MD kdr Annabella Laureano RN RN iw Zeenat Snyder RN RN aa5 Corrections: (The following items were deleted from the chart) 14:19 13:18 12/15/2018 13:18 Discharged to Home. Impression: Chronic pain syndrome; Neoplasm aa5 related pain (acute) (chronic). Condition is Stable. Forms are Medication Reconciliation Form, Thank You Letter, Antibiotic Education, Prescription Opioid Use. Follow up: Private Physician; When: 2 - 3 days; Reason: If symptoms return, Further diagnostic work-up, Recheck today's complaints, Continuance of care, Re-evaluation by your physician. Problem is an acute exacerbation. Symptoms have improved. kdr
[2018-12-15 14:36] VITALS: BP 172/71; TEMP 98.2; O2SAT 100
== END 2018-12-15 14:19 | disposition home or self-care (01) ==
LOC: ER 11:43
DX: G89.3 Neoplasm related pain (acute) (chronic) (principal); G89.4 Chronic pain syndrome; C61 Malignant neoplasm of prostate; C79.51 Secondary malignant neoplasm of bone; I10 Essential (primary) hypertension
CPT/HCPCS: 85025; 80048; 36415; 80076; 83690; 96374; 99283; J1170

== ENCOUNTER 2018-12-19 22:29 | Emergency (ER) | payer OTHER ==
[2018-12-19] MEDS ORDERED: ONDANSETRON 4 MG/2 ML VIAL ONE (23:28)
[2018-12-19] MEDS ORDERED: MORPHINE 4 MG/ML SYR ONE (23:28)
[2018-12-20] MEDS ORDERED: FENTANYL CITR 100 MCG/2 ML ONE (00:42)
--- NOTE | 2018-12-20 01:26 | EDPHYS ---
Physician Documentation [facility] Name: Shantanu Bernal Age: 68 yrs Sex: Male : 1950 Arrival Date: 12/19/2018 Time: 22:33 Bed 23 Private MD: ED Physician Holland Ochoa HPI: 12/20 02:22 This 68 yrs old Male presents to ER via Wheelchair with complaints of Hip Pain.tw4 02:22 The patient or guardian reports pain. The complaints affect the left hip. tw4 02:23 Onset: The symptoms/episode began/occurred 2 month(s) ago, and became worse yesterday. tw4 Severity of symptoms: At their worst the symptoms were mild, in the emergency department the symptoms are unchanged. 02:23 The patient has experienced similar episodes in the past, chronically, with the last tw4 episode occurring last week, and the symptoms today are exactly the same, to previous CHRONIC HIP PAIN RELATED TO NEOPLASM. Historical: - Allergies: 12/19 22:37 No Known Allergies; tl1 - Home Meds: 22:37 abiraterone 250mg Oral 2 tabs twice a day [Active]; calcium 500mg with Vitamin D3 tl1 400units [Active]; enalapril maleate 10 mg Oral tab once daily [Active]; glipizide 5 mg Oral tr24 twice a day [Active]; metformin 1,000 mg Oral tr24 twice a day [Active]; prednisone 5 mg Oral tab 1 tab 2 times per day [Active]; tamsulosin 0.4 mg Oral cp24 1 cap once daily [Active]; Fentanyl Patch Topical [Active]; - PMHx: 22:37 Diabetes - NIDDM; Hypertension; Prostate Cancer with metastasis to the bone; tl1 - PSHx: 22:37 None; tl1 - Immunization history:: Adult Immunizations up to date. - Social history:: Smoking status: Patient/guardian denies using tobacco, Patient/guardian denies using alcohol, street drugs. - Ebola Screening: : Patient negative for fever greater than or equal to 101.5 degrees Fahrenheit, and additional compatible Ebola Virus Disease symptoms Patient denies exposure to infectious person Patient denies travel to an Ebola-affected area in the 21 days before illness onset. ROS: 12/20 02:23 Constitutional: Negative for fever, chills, and weight loss, Eyes: Negative for injury, tw4 pain, redness, and discharge, Cardiovascular: Negative for chest pain, palpitations, and edema, Respiratory: Negative for shortness of breath, cough, wheezing, and pleuritic chest pain, Abdomen/GI: Negative for abdominal pain, nausea, vomiting, diarrhea, and constipation, Back: Negative for injury and pain, Skin: Negative for injury, rash, and discoloration, Neuro: Negative for headache, weakness, numbness, tingling, and seizure. MS/extremity: Positive for pain. Exam: 02:23 Constitutional: This is a well developed, well nourished patient who is awake, alert, tw4 and in no acute distress. Head/Face: Normocephalic, atraumatic. Eyes: Pupils equal round and reactive to light, extra-ocular motions intact. Lids and lashes normal. Conjunctiva and sclera are non-icteric and not injected. Cornea within normal limits. Periorbital areas with no swelling, redness, or edema. Chest/axilla: Normal chest wall appearance and motion. Nontender with no deformity. No lesions are appreciated. Cardiovascular: Regular rate and rhythm with a normal S1 and S2. No gallops, murmurs, or rubs. Normal PMI, no JVD. No pulse deficits. Respiratory: Lungs have equal breath sounds bilaterally, clear to auscultation and percussion. No rales, rhonchi or wheezes noted. No increased work of breathing, no retractions or nasal flaring. Abdomen/GI: Soft, non-tender, with normal bowel sounds. No distension or tympany. No guarding or rebound. No evidence of tenderness throughout. Skin: Warm, dry with normal turgor. Normal color with no rashes, no lesions, and no evidence of cellulitis. Neuro: Awake and alert, GCS 15, oriented to person, place, time, and situation. Cranial nerves II-XII grossly intact. Motor strength 5/5 in all extremities. Sensory grossly intact. Cerebellar exam normal. Normal gait. :23 Musculoskeletal/extremity: Extremities: noted in the left hip: Vital Signs: 12/19 22:38 BP 165 / 86; Pulse 89; Resp 17; Temp 98.8(O); Pulse Ox 95% ; Weight 57.15 kg; Height 5 tl1 ft. 5 in. (165.10 cm); Pain 11/30; 23:05 BP 151 / 80; Pulse 86; Resp 18; Pulse Ox 96% on R/A; mg2 12/20 01:02 BP 147 / 69; Pulse 80; Resp 16; Pulse Ox 98% on R/A; tr5 12/19 22:38 Body Mass Index 20.97 (57.15 kg, 165.10 cm) tl1 MDM: 12/19 22:58 Patient medically screened. tw4 12/20 02:23 Differential diagnosis: hip fracture, bursitis, arthritis, strain. Data reviewed: vital tw4 signs, nurses notes. Data interpreted: Pulse oximetry: Interpretation: normal. Counseling: I had a detailed discussion with the patient and/or guardian regarding: the historical points, exam findings, and any diagnostic results supporting the discharge/admit diagnosis. Medication response: morphine markedly relieved the patient's pain. Symptoms have improved. Response to treatment: and as a result, I will discharge patient. Special discussion: I discussed with the patient/guardian in detail that at this point there is no indication for admission to the hospital. It is understood, however, that if the symptoms persist or worsen the patient needs to return immediately for re-evaluation. Administered Medications: 12/19 23:30 Drug: morphine 4 mg Route: IVP; Site: right forearm; mg2 23:30 Drug: Zofran 4 mg Route: IVP; Site: right forearm; mg2 12/20 00:53 Drug: fentaNYL (PF) 25 mcg Route: IVP; Site: right antecubital; tr5 Disposition: 12/20/18 01:25 Discharged to Home. Impression: CHRONIC HIP PAIN. - Condition is Stable. - Discharge Instructions: Chronic Pain, Hip Pain. - Prescriptions for Tramadol 50 mg Oral Tablet - take 1 tablet by ORAL route every 8 hours as needed; 12 tablet. - Medication Reconciliation Form, Thank You Letter, Antibiotic Education, Prescription Opioid Use form. - Follow up: Private Physician; When: Upon discharge from the Emergency Department; Reason: Recheck today's complaints, Continuance of care. - Problem is an ongoing problem. - Symptoms have improved. Signatures: Nadine Hernandez RN RN tl1 Holland Ochoa MD MD tw4 Hilario Madden RN RN mg2 Seven Abreu RN RN tr5 Corrections: (The following items were deleted from the chart) 01:36 01:25 12/20/2018 01:25 Discharged to Home. Impression: CHRONIC HIP PAIN. Condition is tr5 Stable. Forms are Medication Reconciliation Form, Thank You Letter, Antibiotic Education, Prescription Opioid Use. Follow up: Private Physician; When: Upon discharge from the Emergency Department; Reason: Recheck today's complaints, Continuance of care. Problem is an ongoing problem. Symptoms have improved. tw4 02:25 02:23 The patient has not experienced similar symptoms in the past, tw4 tw4
--- NOTE | 2018-12-20 01:26 | ER ---
Nurse's Notes [facility] Name: Shantanu Bernal Age: 68 yrs Sex: Male : 1950 Arrival Date: 12/19/2018 Time: 22:33 Bed 23 Private MD: Diagnosis: CHRONIC HIP PAIN Presentation: 12/19 22:34 Presenting complaint: Child states: He has prostate cancer that has spread to the bone tl1 and he is c/o left hip and knee pain. We have appointment tomorrow with the oncologist. Transition of care: patient was not received from another setting of care. Onset of symptoms was December 19, 2018. Risk Assessment: Do you want to hurt yourself or someone else? Patient reports no desire to harm self or others. Initial Sepsis Screen: Does the patient meet any 2 criteria? No. Patient's initial sepsis screen is negative. Does the patient have a suspected source of infection? No. Patient's initial sepsis screen is negative. Care prior to arrival: None. 22:34 Method Of Arrival: Wheelchair tl1 22:34 Acuity: ERICA 3 tl1 Historical: - Allergies: 22:37 No Known Allergies; tl1 - Home Meds: 22:37 abiraterone 250mg Oral 2 tabs twice a day [Active]; calcium 500mg with Vitamin D3 tl1 400units [Active]; enalapril maleate 10 mg Oral tab once daily [Active]; glipizide 5 mg Oral tr24 twice a day [Active]; metformin 1,000 mg Oral tr24 twice a day [Active]; prednisone 5 mg Oral tab 1 tab 2 times per day [Active]; tamsulosin 0.4 mg Oral cp24 1 cap once daily [Active]; Fentanyl Patch Topical [Active]; - PMHx: 22:37 Diabetes - NIDDM; Hypertension; Prostate Cancer with metastasis to the bone; tl1 - PSHx: 22:37 None; tl1 - Immunization history:: Adult Immunizations up to date. - Social history:: Smoking status: Patient/guardian denies using tobacco, Patient/guardian denies using alcohol, street drugs. - Ebola Screening: : Patient negative for fever greater than or equal to 101.5 degrees Fahrenheit, and additional compatible Ebola Virus Disease symptoms Patient denies exposure to infectious person Patient denies travel to an Ebola-affected area in the 21 days before illness onset. Screenin:32 Abuse screen: Denies threats or abuse. Denies injuries from another. Nutritional mg2 screening: No deficits noted. Tuberculosis screening: No symptoms or risk factors identified. Fall Risk IV access (20 points). Assessment: 23:30 General: Appears in no apparent distress. comfortable, Behavior is calm, cooperative. mg2 Pain: Complains of pain in left hip Pain radiates to left leg Pain currently is 8 out of 10 on a pain scale. Quality of pain is described as aching, Pain began gradually, Is intermittent. Neuro: Level of Consciousness is awake, alert, obeys commands, Oriented to person, place, time, situation. Cardiovascular: Capillary refill < 3 seconds Patient's skin is warm and dry. Respiratory: Airway is patent Respiratory effort is even, unlabored, Respiratory pattern is regular, symmetrical. GI: No signs and/or symptoms were reported involving the gastrointestinal system. : No signs and/or symptoms were reported regarding the genitourinary system. EENT: No signs and/or symptoms were reported regarding the EENT system. Derm: Skin is intact, is healthy with good turgor, Skin is pink, warm \T\ dry. normal. Musculoskeletal: Circulation, motion, and sensation intact. Capillary refill < 3 seconds, Reports pain in left hip. 12/20 01:03 Reassessment: Patient appears in no apparent distress at this time. No changes from tr5 previously documented assessment. Patient and/or family updated on plan of care and expected duration. Pain level reassessed. Vital Signs: 12/19 22:38 BP 165 / 86; Pulse 89; Resp 17; Temp 98.8(O); Pulse Ox 95% ; Weight 57.15 kg; Height 5 tl1 ft. 5 in. (165.10 cm); Pain 11/30; 23:05 BP 151 / 80; Pulse 86; Resp 18; Pulse Ox 96% on R/A; mg2 12/20 01:02 BP 147 / 69; Pulse 80; Resp 16; Pulse Ox 98% on R/A; tr5 12/19 22:38 Body Mass Index 20.97 (57.15 kg, 165.10 cm) tl1 ED Course: 12/19 22:33 Patient arrived in ED. cl3 22:35 Triage completed. tl1 22:37 Arm band placed on right wrist. tl1 22:42 Hilario Madden, RN is Primary Nurse. mg2 22:58 Holland Ochoa MD is Attending Physician. tw4 23:37 Patient has correct armband on for positive identification. Pulse ox on. NIBP on. Door mg2 closed. Warm blanket given. 23:37 No provider procedures requiring assistance completed. Inserted saline lock: 20 gauge mg2 in right forearm, using aseptic technique. 12/20 01:35 IV discontinued. tr5 Administered Medications: 12/19 23:30 Drug: morphine 4 mg Route: IVP; Site: right forearm; mg2 23:30 Drug: Zofran 4 mg Route: IVP; Site: right forearm; mg2 12/20 00:53 Drug: fentaNYL (PF) 25 mcg Route: IVP; Site: right antecubital; tr5 Intake: 12/19 16:20 IV: 50ml; Total: 50ml. tr5 16:20 IV: 500ml; Total: 550ml. tr5 22:00 IV: 50ml; Total: 600ml. tr5 12/20 00:56 IV: 500ml; Total: 1100ml. tr5 00:56 IV: 50ml; Total: 1150ml. tr5 00:59 IV: 600ml; Total: 1750ml. tr5 Outcome: 01:25 Discharge ordered by . tw4 01:35 Discharged to home via wheelchair, with family. tr5 01:35 Condition: stable 01:35 Discharge instructions given to patient, family, Instructed on discharge instructions, follow up and referral plans. medication usage, Demonstrated understanding of instructions, follow-up care, medications, Prescriptions given X 1. 01:36 Patient left the ED. tr5 Signatures: Nadine Hernandez RN RN tl1 Holland Ochoa MD MD tw4 Hilario Madden RN RN mg2 Seven Abreu RN RN tr5 Charles Peter cl3
[2018-12-20 01:42] VITALS: TEMP 98.8
[2018-12-20 01:45] VITALS: BP 147/69; O2SAT 98
== END 2018-12-20 01:36 | disposition home or self-care (01) ==
LOC: ER 22:29
DX: M25.552 Pain in left hip (principal); G89.29 Other chronic pain; E11.9 Type 2 diabetes mellitus without complications; I10 Essential (primary) hypertension; Z85.46 Personal history of malignant neoplasm of prostate; Z85.830 Personal history of malignant neoplasm of bone
CPT/HCPCS: 96375; 96374; 99284; J3010; J2405

== ENCOUNTER 2019-04-30 13:27 | Inpatient (IN) | payer OTHER ==
--- OUTSIDE RECORDS SUMMARY | 2019-04-30 13:28 | XMS REPORT ---
:1950 [facility] Address [address] [place] [address] Care Team Providers Name Role Phone Unavailable Unavailable Unavailable Problems This patient has no known problems. Allergies, Adverse Reactions, Alerts This patient has no known allergies or adverse reactions. Medications This patient has no known medications. Results Test Description Test Time Test Comments Text Results Atomic Results Result Comments RADIO'TX, IV 2019-04-04 Reason for FINAL REPORT PATIENT ADMINISTRATION 11:55:00 Exam:->prostate cancer ID: [id number] PROCEDURE: RADIONUCLIDE THERAPY - RADIUM CHLORIDE CPT CODE: 98317 INDICATION: Prostate Cancer with bone metastasis PROTOCOL: 0.086 mCi of Ra-223 chloride was injected intravenously by the nuclear medicine physician. Post-treatment radiation precautions were discussed with the patient, and written instructions were provided. IMPRESSION: Alpha particle, nonsealed source, radiotherapy for prostate cancer metastatic to bone. Number two of 6 planned treatments. Signed: Raj Paiz Verified Date/Time: 04/04/2019 11:55:56 Reading Location: [address] Reading Room O'TX, IV 2019-03-02 Reason for FINAL REPORT PATIENT ADMINISTRATION 16:37:00 Exam:->prostate cancer ID: [id number] PROCEDURE: RADIONUCLIDE THERAPY - RADIUM CHLORIDE CPT CODE: 87187 INDICATION: Prostate Cancer with bone metastasis PROTOCOL: 0.082 mCi of Ra-223 chloride was injected intravenously by the nuclear medicine physician. Post-treatment radiation precautions have been discussed with the patient and his daughter and written instructions have been provided. IMPRESSION: Alpha particle, nonsealed source, radiotherapy for prostate cancer metastatic to bone. Number 2 of 6 planned treatments. Signed: Aziza Sage Verified Date/Time: 03/02/2019 16:37:55 Reading Location: [address] Reading Room O'TX, IV 2019-01-25 Reason for FINAL REPORT PATIENT ADMINISTRATION 18:41:00 Exam:->C61.C79.51 ID: [id number] PROCEDURE: RADIONUCLIDE THERAPY - RADIUM CHLORIDE CPT CODE: [id number] INDICATION: Prostate Cancer with bone metastasis PROTOCOL: 0.088 mCi of Ra-223 chloride was injected intravenously by the nuclear medicine physician. Post-treatment radiation precautions were discussed with the patient and his daughter, and written instructions were provided. IMPRESSION: Alpha particle, nonsealed source, radiotherapy for prostate cancer metastatic to bone. Number 1 of 6 planned treatments. Signed: Aziza Sage MDR[place] Verified Date/Time: 01/25/2019 18:41:49 Reading Location: [address] [id number] [employer] [facility] Reading Room
[2019-04-30] MEDS ORDERED: ONDANSETRON 4 MG/2 ML VIAL ONE (14:35)
[2019-04-30 14:47] LABS: Absolute Lymphocytes (CBC) 0.7 K/uL (0.7-4.9); Basophils % 0.6 % (0-1.3); Hematocrit 32.4 % (39.6-49.0); Lymphocytes % 15.2 % (15.3-44.8); MPV 7.8 fL (7.6-11.3); RBC Red Blood Cell Count 3.85 M/uL (4.33-5.43)
--- NOTE | 2019-04-30 14:51 | RAD REPORT ---
EXAM DESCRIPTION: US - Extremity Venous Uni Ltd - 04/30/2019 2:40 pm CLINICAL HISTORY: LLE pain and swelling Leg swelling and edema. COMPARISON: Extremity Venous Uni Ltd dated 04/17/2019 FINDINGS: Left lower extremity venous system was interrogated with Doppler technique. Normal flow, c ompressibility and augmentation was noted. There is no DVT present.A few mildly prominent left groin lymph nodes are present. IMPRESSION: No evidence of left lower extremity deep venous thrombosis.
[2019-04-30 14:52] LABS: Protime INR 1.15
[2019-04-30 15:28] LABS: BUN Blood Urea Nitrogen 12 mg/dL (7-18); Bicarbonate 29 mmol/L (21-32); Glucose Level 190 mg/dL (74-106); NT PRO-BNP 163 pg/mL (<125); Potassium 3.9 mmol/L (3.5-5.1); Sodium Level 140 mmol/L (136-145)
--- NOTE | 2019-04-30 15:50 | RAD REPORT ---
EXAM DESCRIPTION: CT - Chest For Pe Angio - 04/30/2019 3:39 pm CLINICAL HISTORY: sob COMPARISON: None. TECHNIQUE: Dynamically enhanced axial 3 mm thick images of the chest were obtained during administra tion of <100> mL Isovue 370 IV contrast. Coronal and oblique reconstruction images were generated and reviewed. Exam utilizes a protocol for optimal evaluation of pulmonary arterial tree. Maximum intensity projections 3D imaging was utilized All CT scans are performed using dose optimization technique as appropriate and may include automated exposure control or mA/KV adjustment according to patient size. FINDINGS: A pulmonary embolus is not seen. A thoracic aortic aneurysm is not noted. A pleural effusion is not seen. A pericardial effusion is not seen. Moderate to large pleural effusions. Left pleural effusion is partially loculated. Bibasilar atelecta sis Extensive sclerotic metastases IMPRESSION: Negative for a pulmonary embolism. Two moderate to large pleural effusions. Left pleural effusion is partially loculated Bibasilar atelectasis
--- NOTE | 2019-04-30 15:50 | RAD REPORT ---
EXAM DESCRIPTION: Ori Single View04/30/2019 2:53 pm CLINICAL HISTORY: Shortness breath COMPARISON: 2019 FINDINGS: Moderate to large bilateral pleural effusions with bibasilar atelectasis. Upper lobes are clear Heart is borderline enlarged Bones are sclerotic secondary to metastases
--- NOTE | 2019-04-30 15:57 | RAD REPORT ---
EXAM DESCRIPTION: CT - Abdomen Pelvis W Contrast - 04/30/2019 3:39 pm CLINICAL HISTORY: Abdominal pain COMPARISON: 2019 TECHNIQUE: Computed axial tomography of the abdomen pelvis was obtained. 100 cc Isovue-300 was admin istered intravenously. Oral contrast was not requested which limits evaluation of bowel. All CT scans are performed using dose optimization technique as appropriate and may include automated exposure control or mA/KV adjustment according to patient size. FINDINGS: The liver, spleen, pancreas, right and kidneys appear unremarkable. 25 millimeter left adrenal mass has developed There is no evidence of diverticulitis. Diffuse edema within the subcutaneous tissues Extensive bony sclerotic metastases Left IMPRESSION: 25 millimeter left adrenal mass likely metastasis Extensive bony metastases Diffuse edema within the subcutaneous tissues
[2019-04-30] MEDS ORDERED: FUROSEMIDE 40 MG/4 ML VIAL ONE (16:49)
--- NOTE | 2019-04-30 17:07 | ER ---
Nurse's Notes [facility] Name: Shantanu Bernal Age: 69 yrs Sex: Male : 1950 Arrival Date: 04/30/2019 Time: 13:30 Bed 24 Private MD: Ankush Perdue Diagnosis: Pleural effusion, not elsewhere classified;Dyspnea, unspecified;Anasarca Presentation: 04/29 13:55 Chief complaint: Patient states: Swelling to L side of face x 2 days, but is more ss noticeable today, and L leg swelling x 2.5 weeks. Pt had an ultrasound to rule out DVT 2 weeks ago which was negative, but was instructed by Dr. Cornejo today to come to ER for further evaluation. Coronavirus screen: The patient has NOT traveled to a country currently being monitored by the CDC within the last 14 days. Proceed with normal triage procedures. Ebola Screen: Patient denies exposure to infectious person. Patient denies travel to an Ebola-affected area in the 21 days before illness onset. Initial Sepsis Screen: Does the patient meet any 2 criteria? HR > 90 bpm. Does the patient have a suspected source of infection? No. Patient's initial sepsis screen is negative. Risk Assessment: Do you want to hurt yourself or someone else? Patient reports no desire to harm self or others. 13:55 Method Of Arrival: Wheelchair ss 13:55 Acuity: ERICA 3 ss 14:48 Onset of symptoms was April 13, 2019. 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 - Social history:: Smoking status: Patient denies any tobacco usage or history of. - Family history:: not pertinent. - Hospitalizations: : No recent hospitalization is reported. Screenin:46 Abuse screen: Denies threats or abuse. Nutritional screening: Has had N/V for 3 or more ll1 days Intervention for positive screen: bone CA on radiation. N/V daily. Tuberculosis screening: No symptoms or risk factors identified. Fall Risk Secondary diagnosis (15 points) bone CA with radiation. IV access (20 points). Gait- Weak (10 pts.). Assessment: 14:37 General: Appears in no apparent distress. slender, Behavior is calm, cooperative. ll1 Cardiovascular: Reports shortness of breath, swelling to lower extremities, slight facial swelling. Heart tones S1 S2 Capillary refill < 3 seconds Pulses are 2+ in right radial artery, right dorsalis pedis artery, left radial artery and left dorsalis pedis artery. Respiratory: Reports shortness of breath on exertion Airway is patent Trachea midline Respiratory effort is even, unlabored, Respiratory pattern is regular, symmetrical, Breath sounds are clear bilaterally. the patient has mild shortness of breath. GI: Abdomen is flat, Bowel sounds present X 4 quads. Abd is soft and non tender X 4 quads. Reports nausea, vomiting. 15:30 Reassessment: Patient appears in no apparent distress at this time. Patient and/or ll1 family updated on plan of care and expected duration. Pain level reassessed. Patient is alert, oriented x 3, equal unlabored respirations, skin warm/dry/pink. 16:27 Reassessment: Patient appears in no apparent distress at this time. No changes from ll1 previously documented assessment. Patient and/or family updated on plan of care and expected duration. Pain level reassessed. Patient is alert, oriented x 3, equal unlabored respirations, skin warm/dry/pink. 17:25 Reassessment: Patient appears in no apparent distress at this time. No changes from ll1 previously documented assessment. Patient and/or family updated on plan of care and expected duration. Pain level reassessed. Patient is alert, oriented x 3, equal unlabored respirations, skin warm/dry/pink. 18:31 Reassessment: Patient appears in no apparent distress at this time. No changes from ll1 previously documented assessment. Patient and/or family updated on plan of care and expected duration. Pain level reassessed. Patient is alert, oriented x 3, equal unlabored respirations, skin warm/dry/pink. 19:30 Reassessment: Patient appears in no apparent distress at this time. No changes from ll1 previously documented assessment. Patient and/or family updated on plan of care and expected duration. Pain level reassessed. Patient is alert, oriented x 3, equal unlabored respirations, skin warm/dry/pink. 19:51 Pain: Denies pain. ll1 Vital Signs: 13:54 BP 164 / 86; Pulse 97; Resp 16; Temp 99.0(TE); Pulse Ox 95% ; ss 16:25 BP 168 / 103; Pulse 91; Resp 16; Pulse Ox 99% ; ll1 17:03 BP 162 / 93; Pulse 90; Resp 16; Pulse Ox 99% ; ll1 19:49 BP 169 / 91; Pulse 96; Resp 17; Temp 97.5; Pulse Ox 96% ; Pain 0/10; ll1 ED Course: 13:30 Patient arrived in ED. rg4 13:30 Ankush Perdue MD is Private Physician. rg4 13:54 Arm band placed on right wrist. ss 13:58 Triage completed. ss 13:59 Samson Goncalves MD is Attending Physician. rn 14:12 Diamond Peter RN is Primary Nurse. ll1 14:25 Inserted saline lock: 18 gauge in left antecubital area, using aseptic technique. Blood ll1 collected. 14:48 Extremity Venous Uni Ltd US In Process Unspecified. EDMS 14:49 Patient has correct armband on for positive identification. Placed in gown. Bed in low ll1 position. Call light in reach. Side rails up X 1. Door closed. Lights dimmed. Warm blanket given. 15:17 Radiology exam delayed due to lab results not completed at this time. (BUN/Creatinine). nj 15:22 Radiology exam delayed due to lab results not completed at this time. (BUN/Creatinine). nj 15:30 XRAY Chest (1 view) In Process Unspecified. EDMS 16:59 Ja Barboza PA is Hospitalizing Provider. rn 20:15 No provider procedures requiring assistance completed. Patient admitted, IV remains in ll1 place. Administered Medications: 14:36 Drug: Zofran (Ondansetron) 4 mg Route: IVP; Site: left antecubital; ll1 17:02 Follow up: Response: No adverse reaction; Nausea is decreased; RASS: Alert and Calm (0) ll1 16:52 Drug: Lasix 40 mg Route: IVP; Rate: 20 mg/min; Site: left antecubital; ll1 19:50 Follow up: Response: No adverse reaction; Other; RASS: Alert and Calm (0) ll1 Output: 17:00 Urine: 550ml (Voided); Total: 550ml. ll1 17:49 Urine: 600ml (Voided); Total: 1150ml. ll1 18:33 Urine: 550ml (Voided); Total: 1700ml. ll1 Outcome: 17:06 Decision to Hospitalize by Provider. rn 20:15 Admitted to Tele accompanied by tech, family with patient, via stretcher, room Rm 414, ll1 Report called to Mechellejo-ann Wilde 20:15 Condition: improved 20:15 Instructed on the need for admit. 20:29 Patient left the ED. ll1 Signatures: Dispatcher [employer] EDMS Samson Goncalves MD MD rn Smirch, Shelby, RN RN ss Garcia, Rubi 4 Denny Mota Lynsay, RN RN ll1 Corrections: (The following items were deleted from the chart) 14:51 13:58 PMHx: Diabetes - NIDDM; ll1 14:51 13:58 PMHx: Hypertension; ss ll1 14:51 13:58 PMHx: Prostate Cancer with metastasis to the bone; ll1 16:28 14:51 PMHx: Diabetes - NIDDM; 1 ll1 16:28 14:51 PMHx: Hypertension; 1 ll1 16:28 14:51 PMHx: Prostate Cancer with metastasis to the bone; ll1 ll1
--- NOTE | 2019-04-30 17:07 | EDPHYS ---
Physician Documentation [facility] Name: Shantanu Bernal Age: 69 yrs Sex: Male : 1950 Arrival Date: 04/30/2019 Time: 13:30 Bed 24 Private MD: Ankush Perdue ED Physician Samson Goncalves HPI: 04/29 14:11 This 69 yrs old Male presents to ER via Wheelchair with complaints of Facial rn Swelling, Leg Swelling. 14:11 The patient presents with pain, swelling, tenderness. The complaints affect the entire rn left leg. Onset: The symptoms/episode began/occurred 3 week(s) ago. Modifying factors: The symptoms are alleviated by elevating leg, the symptoms are aggravated by weight bearing. Severity of symptoms: At their worst the symptoms were moderate, in the emergency department the symptoms are unchanged. The patient has experienced similar episodes in the past. Reports approx 3 weeks or more of LLE swelling and pain, intermittent, no trauma. Seen by his oncologist and told just building up fluid, has had neg ultrasound of leg. No chest pain but mild sob. Reports has known prostate cancer with metastases to "all bones". Told by oncologist that if pain and swelling worsened to go to ER. . Historical: - Allergies: 13:58 No Known Allergies; ss - PMHx: 16:27 Diabetes - NIDDM; Hypertension; Prostate Cancer with metastasis to the bone; ll1 - Immunization history:: Adult Immunizations up to date. - Social history:: Smoking status: Patient denies any tobacco usage or history of. - Family history:: not pertinent. - Hospitalizations: : No recent hospitalization is reported. ROS: 14:11 Constitutional: Negative for fever, chills Eyes: Negative for injury, pain, redness, rn and discharge, Neck: Negative for injury, pain, and swelling, Cardiovascular: Negative for chest pain, palpitations Respiratory: Negative for cough, wheezing, and pleuritic chest pain, Abdomen/GI: Negative for abdominal pain, nausea, vomiting, diarrhea, and constipation, MS/Extremity: + lower ext swelling, bilateral L>R Skin: Negative for injury, rash, and discoloration, Neuro: Negative for headache, numbness, tingling, and seizure. Exam: 14:11 Constitutional: Thin male, no acute distress Head/Face: Normocephalic, atraumatic. 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 No pulse deficits. Respiratory: Lungs have equal breath sounds bilaterally, clear to auscultation. No increased work of breathing, no retractions or nasal flaring. Abdomen/GI: soft, non-tender Skin: Warm, dry MS/ Extremity: Pulses equal, no cyanosis. Neurovascular intact. Full, normal range of motion. LLE with 1+ pitting edema and larger circumference compared to RLE. Neuro: Awake and alert, GCS 15, oriented to person, place, time, and situation. Cranial nerves II-XII grossly intact. Motor strength 5/5 in all extremities. Sensory grossly intact. Cerebellar exam normal. Antalgic gait and using cane. Vital Signs: 13:54 BP 164 / 86; Pulse 97; Resp 16; Temp 99.0(TE); Pulse Ox 95% ; ss 16:25 BP 168 / 103; Pulse 91; Resp 16; Pulse Ox 99% ; ll1 17:03 BP 162 / 93; Pulse 90; Resp 16; Pulse Ox 99% ; ll1 19:49 BP 169 / 91; Pulse 96; Resp 17; Temp 97.5; Pulse Ox 96% ; Pain 0/10; ll1 MDM: 13:59 Patient medically screened. rn 15:05 ED course: U/S neg for DVT.. rn 16:57 Differential diagnosis: anasarca, pleural effusions, DVT, PE. Data reviewed: vital rn signs, nurses notes, lab test result(s), EKG, radiologic studies, CT scan, plain films, and as a result, I will admit patient. Counseling: I had a detailed discussion with the patient and/or guardian regarding: the historical points, exam findings, and any diagnostic results supporting the discharge/admit diagnosis, lab results, radiology results, the need for further work-up and treatment in the hospital. Response to treatment: the patient's symptoms have mildly improved after treatment, and as a result, I will admit patient. ED course: Pt with anasarca, moderate to large bilateral pleural effusions and symptomatic, will admit to hospitalist service for diuresis, sees Dr. Cornejo for oncology. Lasix given in ER. . 04/29 14:08 Order name: CBC with Diff rn 04/29 14:08 Order name: Basic Metabolic Panel; Complete Time: 15:59 rn 04/29 14:08 Order name: Protime (+inr); Complete Time: 15:05 rn 04/29 14:08 Order name: Ptt, Activated; Complete Time: 15:05 rn 04/29 14:08 Order name: N-Terminal Pro-brain Natriuretic Peptide; Complete Time: 15:59 rn 04/29 20:08 Order name: CBC Smear Scan EDWV 04/29 14:08 Order name: CT Abd/Pelvis - IV Contrast Only rn 04/29 14:08 Order name: Extremity Venous Uni Ltd US; Complete Time: 15:59 rn 04/29 14:09 Order name: XRAY Chest (1 view); Complete Time: 16:30 rn 04/29 14:10 Order name: CT Chest For PE Angio rn 04/29 16:15 Order name: CT; Complete Time: 16:30 EDWV 04/29 16:49 Order name: CT; Complete Time: 16:59 EDWV 04/29 14:08 Order name: IV Start; Complete Time: 14:28 rn 04/29 18:30 Order name: CONS Physician Consult EDWV Administered Medications: 14:36 Drug: Zofran (Ondansetron) 4 mg Route: IVP; Site: left antecubital; ll1 17:02 Follow up: Response: No adverse reaction; Nausea is decreased; RASS: Alert and Calm (0) ll1 16:52 Drug: Lasix 40 mg Route: IVP; Rate: 20 mg/min; Site: left antecubital; ll1 19:50 Follow up: Response: No adverse reaction; Other; RASS: Alert and Calm (0) ll1 Disposition: 04/30/19 17:06 Hospitalization ordered by Ja Barboza for Inpatient Admission. Preliminary diagnosis are Pleural effusion, not elsewhere classified, Dyspnea, unspecified, Anasarca. - Bed requested for Telemetry/MedSurg (Inpatient). - Status is Inpatient Admission. ll1 - Condition is Stable. - Problem is an ongoing problem. - Symptoms have improved. Signatures: Dispatcher [employer] EDWV Melia Merlos Roman, MD MD rn Smirch, Shelby, RN RN ss Lewis, Lynsay, RN RN ll1 Corrections: (The following items were deleted from the chart) 14:51 13:58 PMHx: Diabetes - NIDDM; ss ll1 14:51 13:58 PMHx: Hypertension; ss ll1 14:51 13:58 PMHx: Prostate Cancer with metastasis to the bone; ss ll1 16:28 14:51 PMHx: Diabetes - NIDDM; ll1 ll1 16:28 14:51 PMHx: Hypertension; ll1 ll1 16:28 14:51 PMHx: Prostate Cancer with metastasis to the bone; ll1 ll1 18:44 17:06 Hospitalization Ordered by Ja CHOI for Inpatient Admission. Preliminary bd diagnosis is Pleural effusion, not elsewhere classified; Dyspnea, unspecified; Anasarca. Bed requested for Telemetry/MedSurg (Inpatient). Status is Inpatient Admission. Condition is Stable. Problem is an ongoing problem. Symptoms have improved. rn 20:29 18:44 04/30/2019 17:06 Hospitalization Ordered by Ja CHOI for Inpatient ll1 Admission. Preliminary diagnosis is Pleural effusion, not elsewhere classified; Dyspnea, unspecified; Anasarca. Bed requested for Telemetry/MedSurg (Inpatient). Status is Inpatient Admission. Condition is Stable. Problem is an ongoing problem. Symptoms have improved. bd
--- NOTE | 2019-04-30 18:21 | P.HP ---
Certification for Inpatient Patient admitted to: Inpatient With expected LOS: >2 Midnights Patient will require the following post-hospital care: None Practitioner: I am a practitioner with admitting privileges, knowledge of patient current condition, hospital course, and medical plan of care. Services: Services provided to patient in accordance with Admission requirements found in Title 42 Section 412.3 of the Code of Federal Regulations <Michael Barboza - Last Filed: 04/30/19 18:15> Patient History Date of Service: 04/30/19 Primary Care Provider: Dr. Perdue Reason for admission: Shortness of breath, bilateral pleural effusions History of Present Illness: This is a 69-year-old male with history of hypertension and non-insulin- dependent diabetes mellitus along with known metastatic prostate history that came to the ER today after being evaluated by his oncologist. Patient stated that he had been experiencing increased shortness of breath over the past week. Patient currently under the care of hematology oncology and radiation oncology for metastatic prostate cancer. Patient had told his oncologist today that his breathing had been getting worse. Instructed to go to the emergency room for further evaluation at that time. The ER evaluated patient and was found to have bilateral large pleural effusions with diffuse edema. Patient stated that his swelling had become worse over the last several days. No history of heart failure that he knows of. Further workup was completed to rule out pulmonary embolus and DVT which were both negative. Subsequently threw those studies patient was found to have new metastatic adrenal mass along with bony lesions. Hospitalist was consulted at that time for the large pleural effusions in shortness of breath. Patient will be admitted for diuresis and further evaluation of the pleural effusions along with consult to pulmonology. Home medications list reviewed: Yes - Past Medical/Surgical History Diabetic: Yes -: HTN -: DMII -: Prostate CA mets to bone - Social History Smoking Status: Never smoker Alcohol use: No CD- Drugs: No Caffeine use: No Place of Residence: Home <Michael Barboza - Last Filed: 04/30/19 18:15> Date of Service: 05/01/19 - Family History Brother -: Hypertension, Diabetes Father History Unknown: Yes Sister -: Hypertension, Diabetes Mother -: Diabetes <Brandin Carrasco - Last Filed: 05/01/19 14:21> Allergies No Known Allergies Allergy (Verified 11/30/18 11:21) Home Medications: Enalapril [Vasotec*] 1 tab PO DAILY 04/30/19 Metformin HCl [Metformin ER Osmotic] 1 tab PO DAILY 04/30/19 Tamsulosin [Flomax*] 1 tab PO DAILY 04/30/19 Review of Systems General: Unremarkable Eyes: Unremarkable ENT: Unremarkable Respiratory: Cough, Shortness of Breath, SOB with Excertion Cardiovascular: Unremarkable Gastrointestinal: Unremarkable Musculoskeletal: Unremarkable Integumentary: Unremarkable Neurological: Unremarkable Lymphatics: Unremarkable <Michael Barboza - Last Filed: 04/30/19 18:15> Physical Examination - Vital Signs Temperature: 99.0 F Blood Pressure: 166/86 Pulse: 97 Respirations: 16 Pulse Ox (%): 95 - Physical Exam General: Alert, In no apparent distress, Oriented x3 HEENT: Normocephalic, PERRLA, Mucous membr. moist/pink, EOMI Neck: Supple, 2+ carotid pulse no bruit, JVD not distended Respiratory: Diminished (right and left lower lung pruitt ), Crackles/rales ( bases of lungs) Cardiovascular: Regular rate/rhythm, Normal S1 S2, No gallops, No rubs, No murmurs, Edema (2+ bilateral lower extremities ) Capillary refill: <2 Seconds Gastrointestinal: Normal bowel sounds, Soft and benign, Non-distended, No ascites, No tenderness, No masses, No rebound, No guarding Musculoskeletal: No clubbing, No swelling, No contractures, No erythema, No tenderness, No warmth Integumentary: No rashes, No breakdown, No significant lesion, No tenderness/ swelling, No erythema, No warmth, No cyanosis Neurological: Normal speech, Normal strength at 5/5 x4 extr, Normal tone, Sensation intact, Cranial nerves 3-12 intact, Normal reflexes 2+ Lymphatics: No axilla or inguinal lymphadenopathy - Studies Laboratory Data (last 24 hrs) 04/30/19 14:25: PT 13.5 H, INR 1.15, APTT 25.4 04/30/19 14:25: Sodium 140, Potassium 3.9, BUN 12, Creatinine 0.46 L, Glucose 190 H 04/30/19 14:25: WBC 4.7, Hgb 10.4 L, Hct 32.4 L, Plt Count 274 <Michael Barboza - Last Filed: 04/30/19 18:15> - Studies Laboratory Data (last 24 hrs) 04/30/19 14:25: PT 13.5 H, INR 1.15, APTT 25.4 04/30/19 14:25: Sodium 140, Potassium 3.9, BUN 12, Creatinine 0.46 L, Glucose 190 H 04/30/19 14:25: WBC 4.7, Hgb 10.4 L, Hct 32.4 L, Plt Count 274 <Brandin Carrasco - Last Filed: 05/01/19 14:21> Assessment and Plan - Problems (Diagnosis) (1) Pleural effusion Current Visit: Yes Status: Acute (2) Edema Current Visit: Yes Status: Acute (3) Diabetes mellitus Current Visit: No Status: Acute Qualifiers: Diabetes mellitus type: type 2 Diabetes mellitus director long term care insulin use: without nursing home use Diabetes mellitus complication status: without complication Qualified Code(s): E11.9 - Type 2 diabetes mellitus without complications (4) HTN (hypertension) Current Visit: No Status: Acute Qualifiers: Hypertension type: essential hypertension Qualified Code(s): I10 - Essential (primary) hypertension (5) Prostate cancer metastatic to bone Current Visit: No Status: Chronic - Plan Patient will be monitored closely over the next couple days. Pulmonology be consulted for bilateral pleural effusions to see if pleurocentesis is needed. Patient in the meantime will be diuresed as patient also has lower extremity edema bilaterally. Oxygen saturation will be monitored. Patient will have his blood pressure and diabetes monitored and controlled as well. Discharge Plan: Home Plan to discharge in: Greater than 2 days - Advance Directives Does patient have a Living Will: No Does patient have a Durable POA for Healthcare: No Critical Care: No Time Spent Managing Pts Care (In Minutes): 45 <Michael Barboza - Last Filed: 04/30/19 18:15> Physician Review: Patient Assessed, Agree with Above Assessment and Plan Physician Review Additional Text: Case discussed w JIMBO. Chart reviewed <Brandin Carrasco - Last Filed: 05/01/19 14:21>
[2019-04-30 20:06] LABS: Anisocytosis 1+; Blood Morphology Comment NOTED (NOT SEEN); Platelet Estimate ADEQ; Poikilocytosis 1+; Urine White Blood Cell Casts OK
[2019-04-30] MEDS ORDERED: ONDANSETRON 4 MG/2 ML VIAL IV PRN (20:32)
[2019-04-30] MEDS ORDERED: GLUCAGON 1 MG/VIAL IM PRN (20:32)
[2019-04-30] MEDS ORDERED: HOME MED 1 EA UNK (Fentanyl [Fentanyl] 1 EACH) TD PRN (20:32)
[2019-04-30] MEDS ORDERED: IPRATROPIUM BROM 0.5MG/2.5ML NEB PRN (20:32)
[2019-04-30] MEDS ORDERED: ALBUTEROL 2.5 MG/3 ML NEB SOL NEB PRN (20:32)
[2019-04-30] MEDS ORDERED: D50W 25 GM/50 ML SYRINGE/VIAL IV PRN (20:32)
[2019-04-30] MEDS: INSULIN -REGULAR HUMAN 50 UNIT/0.5 ML ML SQ SCH (21:00)
[2019-04-30] MEDS: predniSONE 5 MG TAB PO SCH (21:15)
[2019-04-30 21:54] VITALS: BMI 22.1
[2019-04-30] MEDS ORDERED: METOPROLOL TARTRATE 5 MG/5 ML INJ IV STA (22:15)
[2019-05-01] MEDS: METOPROLOL TAR 50 MG TAB PO SCH ×2 (00:25→08:39)
[2019-05-01] MEDS: ENALAPRIL 10 MG TAB PO SCH ×3 (00:25→20:13)
[2019-05-01 04:52] LABS: Absolute Lymphocytes (CBC) 0.7 K/uL (0.7-4.9); Basophils % 0.7 % (0-1.3); Hematocrit 29.3 % (39.6-49.0); Lymphocytes % 19.3 % (15.3-44.8); MPV 7.8 fL (7.6-11.3); RBC Red Blood Cell Count 3.47 M/uL (4.33-5.43)
[2019-05-01 05:04] LABS: Protime INR 1.15
[2019-05-01 05:07] LABS: ALT/SGPT 51 U/L (12-78); AST/SGOT 33 U/L (15-37); Albumin 2.7 g/dL (3.4-5.0); Alkaline Phosphatase 459 U/L (45-117); BUN Blood Urea Nitrogen 13 mg/dL (7-18); Bicarbonate 30 mmol/L (21-32); Bilirubin Total 0.4 mg/dL (0.2-1.0); Glucose Level 284 mg/dL (74-106); Magnesium 2.2 mg/dL (1.8-2.4); NT PRO-BNP 150 pg/mL (<125); Phosphorus 3.4 mg/dL (2.5-4.9); Potassium 3.9 mmol/L (3.5-5.1); Protein, Total 6.4 g/dL (6.4-8.2); Sodium Level 142 mmol/L (136-145)
[2019-05-01] MEDS: HYDROCODONE/APAP 5/325 MG TAB PO PRN ×3 (06:22→20:12)
[2019-05-01] MEDS: predniSONE 5 MG TAB PO SCH ×2 (08:38→20:14)
[2019-05-01] MEDS: FUROSEMIDE 20 MG/ 2ML VIAL IV SCH ×2 (08:39→17:25)
[2019-05-01] MEDS: TAMSULOSIN 0.4 MG SR CAP PO SCH (08:39)
[2019-05-01] MEDS: INSULIN -REGULAR HUMAN 50 UNIT/0.5 ML ML SQ SCH ×4 (08:40→20:15)
[2019-05-01] MEDS: SPIRONOLACTONE 25 MG TABLET PO SCH ×2 (08:44→20:14)
[2019-05-01] MEDS ORDERED: ENALAPRIL 10 MG TAB PO SCH (09:00)
--- NOTE | 2019-05-01 11:05 | RAD REPORT ---
EXAM DESCRIPTION: US - Chest - 05/01/2019 10:30 am CLINICAL HISTORY: Bilateral effusions COMPARISON: Chest For Pe Angio dated 04/30/2019 FINDINGS: Bilateral pleural effusions are noted, showing evidence of mild loculation and slightly la rger on the right.
--- NOTE | 2019-05-01 12:54 | P.PN ---
Subjective Date of Service: 05/01/19 Primary Care Provider: Dr. Perdue Chief Complaint: Shortness of breath, bilateral pleural effusions Subjective: No new changes (still SOB) Review of Systems Unremarkable Physical Examination - Vital Signs Temperature: 98 F Blood Pressure: 156/74 Pulse: 75 Respirations: 16 Pulse Ox (%): 97 - Physical Exam General: Alert, Mild distress HEENT: Atraumatic, Normocephalic Neck: Supple, 2+ carotid pulse no bruit, JVD not distended Respiratory: Diminished, Crackles/rales Cardiovascular: Regular rate/rhythm, Normal S1 S2 Gastrointestinal: Normal bowel sounds, Soft and benign Neurological: Normal speech, Normal strength at 5/5 x4 extr - Studies Laboratory Data (last 24 hrs) 04/30/19 14:25: PT 13.5 H, INR 1.15, APTT 25.4 04/30/19 14:25: Sodium 140, Potassium 3.9, BUN 12, Creatinine 0.46 L, Glucose 190 H 04/30/19 14:25: WBC 4.7, Hgb 10.4 L, Hct 32.4 L, Plt Count 274 Assessment & Plan Plan to discharge in: 48 Hours Physician Review: Patient Assessed, Agree with Above Assessment and Plan Physician Review Additional Text: # b/l Pleural Effusions -evaluated by pulmonary today -agree with plan for right sided thoracocentesis - will leave left side pleural effusion for now since appear loculated -c/w gentle diuresis -likely metastatic in nature # HTN -adjust BP meds, in crease Toprol to 75 mg bid -c/w enalapril/aldactone # Met Prostate cancer - follow with oncology # DVT prop- sc heparin
--- NOTE | 2019-05-01 13:48 | ECHO ---
HEIGHT: 5 ft 5 in WEIGHT: 133 lb 4.8 oz DATE OF STUDY: 05/01/[address]: Galo Mcclendon MD 2-DIMENSIONAL: YES M.MODE: YES DOPPLER: YES COLOR FLOW: YES TDS: NO PORTABLE: NO DEFINITY: NO BUBBLE STUDY: NO DIAGNOSIS: BILATERAL EFFUSION. CARDIAC HISTORY: CATHERIZATION: NO SURGERY: NO PROSTHETIC VALVE: NO PACEMAKER: NO MEASUREMENTS (cm) DIASTOLIC (NORMALS) SYSTOLIC (NORMALS) IVSd 1.0 (0.6-1.2) LA Diam 3.2 (1.9-4.0) LVEF 79% LVIDd 4.5 (3.5-5.7) LVIDs 2.4 (2.0-3.5) %FS 48% LVPWd 0.8 (0.6-1.2) Ao Diam 3.0 (2.0-3.7) 2 DIMENSIONAL ASSESSMENT: RIGHT ATRIUM: NORMAL LEFT ATRIUM: NORMAL RIGHT VENTRICLE: NORMAL LEFT VENTRICLE: NORMAL TRICUSPID VALVE: NORMAL MITRAL VALVE: NORMAL PULMONIC VALVE: NORMAL AORTIC VALVE: NORMAL PERICARDIAL EFFUSION: NONE AORTIC ROOT: NORMAL LEFT VENTRICULAR WALL MOTION: NORMAL. DOPPLER/COLOR FLOW: NORMAL. COMMENTS: MODERATE PERICARDIAL EFFUSION. NO TAMPONADE. NORMAL LEFT VENTRICULAR SIZE AND FUNCTION. TECHNOLOGIST: ADELE PIEDRA
[2019-05-01] MEDS ORDERED: IPRATROPIUM BROM 0.5MG/2.5ML NEB PRN (16:00)
[2019-05-01] MEDS ORDERED: ALBUTEROL 2.5 MG/3 ML NEB SOL NEB PRN (16:00)
[2019-05-01] MEDS ORDERED: HYDRALAZINE HCL 20 MG/ML VIAL IV PRN (16:33)
[2019-05-01] MEDS ORDERED: FENTANYL 50 MCG/PATCH TD SCH (17:00)
[2019-05-01] MEDS: AMLODIPINE 5 MG TAB PO SCH (17:29)
[2019-05-01] MEDS: METOPROLOL TAR 25 MG TAB PO SCH (20:14)
[2019-05-01] MEDS: HEPARIN 5000 UNIT/ML 1 ML VIAL SQ SCH (21:04)
[2019-05-02 04:54] LABS: ALT/SGPT 56 U/L (12-78); AST/SGOT 81 U/L (15-37); Albumin 2.8 g/dL (3.4-5.0); Alkaline Phosphatase 479 U/L (45-117); BUN Blood Urea Nitrogen 13 mg/dL (7-18); Bicarbonate 31 mmol/L (21-32); Bilirubin Total 0.6 mg/dL (0.2-1.0); Glucose Level 189 mg/dL (74-106); Potassium 3.7 mmol/L (3.5-5.1); Protein, Total 6.7 g/dL (6.4-8.2); Sodium Level 138 mmol/L (136-145)
[2019-05-02] MEDS: INSULIN -REGULAR HUMAN 50 UNIT/0.5 ML ML SQ SCH ×4 (07:30→21:00)
[2019-05-02] MEDS: SPIRONOLACTONE 25 MG TABLET PO SCH ×2 (07:46→21:31)
[2019-05-02] MEDS: METOPROLOL TAR 25 MG TAB PO SCH ×2 (07:46→21:32)
[2019-05-02] MEDS: ENALAPRIL 10 MG TAB PO SCH ×2 (07:46→21:32)
[2019-05-02] MEDS: HEPARIN 5000 UNIT/ML 1 ML VIAL SQ SCH ×2 (07:47→21:00)
[2019-05-02] MEDS: AMLODIPINE 5 MG TAB PO SCH (07:47)
[2019-05-02] MEDS: FUROSEMIDE 20 MG/ 2ML VIAL IV SCH ×2 (07:48→17:15)
[2019-05-02] MEDS: predniSONE 5 MG TAB PO SCH ×2 (07:50→21:32)
[2019-05-02] MEDS: TAMSULOSIN 0.4 MG SR CAP PO SCH (07:50)
--- NOTE | 2019-05-02 12:19 | P.CNS ---
Date of Consult: 05/02/19 Primary Care Provider: Dr. Perdue Chief Complaint: Shortness of breath, bilateral pleural effusions History of Present Illness: Patient is 69 years of age with a history of metastatic prostatic cancer admitted with worsening dyspnea for the past 2 weeks he was found to have bilateral pleural effusions denies any fever chills chest pain Chadian-speaking only his main problem is discomfort in his left thigh and radiating to the left leg no evidence of DVT Allergies No Known Allergies Allergy (Verified 11/30/18 11:21) Home Medications: Enalapril [Vasotec*] 1 tab PO DAILY 04/30/19 Metformin HCl [Metformin ER Osmotic] 1 tab PO DAILY 04/30/19 Tamsulosin [Flomax*] 1 tab PO DAILY 04/30/19 - Past Medical/Surgical History Diabetic: Yes -: HTN -: DMII -: Prostate CA mets to bone on radiation - Family History Brother Medical History: Hypertension, Diabetes Father History Unknown: Yes Sister Medical History: Hypertension, Diabetes Mother Medical History: Diabetes - Social History Smoking Status: Unknown if ever smoked Alcohol use: No CD- Drugs: No Caffeine use: No Place of Residence: Home Review of Systems General: Weakness Respiratory: Shortness of Breath Musculoskeletal: As per HPI Physical Examination Temp Pulse Resp BP Pulse Ox 98.1 F 97 H 18 181/87 H 93 05/02/19 08:00 05/02/19 08:00 05/02/19 08:00 05/02/19 08:00 05/02/19 08:00 General: Alert, In no apparent distress, Oriented x3 HEENT: Atraumatic Neck: Supple Respiratory: Diminished (Diminished air entry in both size right worse than the left) Cardiovascular: No edema, Regular rate/rhythm, Normal S1 S2 - Problems (1) Pleural effusion Current Visit: Yes Status: Acute Plan: Patient is 69 years of age admitted with some discomfort in his left hip radiating to the left leg he has prostatic cancer with metastases in addition patient now has bilateral pleural effusions right greater than left the left appears to be little loculated patient to undergo thoracentesis tomorrow labs reviewed unremarkable mildly anemic patient's blood pressure is elevated
--- NOTE | 2019-05-02 12:46 | P.PN ---
Subjective Date of Service: 05/02/19 Primary Care Provider: Dr. Perdue Chief Complaint: Shortness of breath, bilateral pleural effusions Subjective: No new changes, No C/O voiced (thoracocentesis held today due to aspirin and heparin use) Physical Examination - Vital Signs Temperature: 98.1 F Blood Pressure: 181/87 Pulse: 97 Respirations: 18 Pulse Ox (%): 93 - Physical Exam General: Alert, In no apparent distress, Oriented x3 HEENT: Atraumatic, Normocephalic Neck: 2+ carotid pulse no bruit, JVD not distended Respiratory: Diminished, Crackles/rales Cardiovascular: Normal pulses, Regular rate/rhythm, Normal S1 S2 Gastrointestinal: Normal bowel sounds, Soft and benign, Non-distended Musculoskeletal: No clubbing, No swelling Neurological: Normal strength at 5/5 x4 extr Assessment & Plan Physician Review: Patient Assessed, Agree with Above Assessment and Plan Physician Review Additional Text: # b/l Pleural Effusions - follow plan for right sided thoracocentesis in am - still possible mets from prostate ca -appreciate pulmonary eval - will leave left side pleural effusion for now since appear loculated -c/w gentle diuresis -likely metastatic in nature # HTN -uncontrolled - add norvasc -c/w Toprol 75 mg bid/enalapril/aldactone # Met Prostate cancer - follow with oncology # DVT prop- sc heparin Time Spent Managing Pts Care (In Minutes): 35
[2019-05-02] MEDS: AMLODIPINE 10 MG TAB PO SCH (13:53)
[2019-05-02] MEDS: HYDROCODONE/APAP 5/325 MG TAB PO PRN (21:38)
[2019-05-03] MEDS: INSULIN -REGULAR HUMAN 50 UNIT/0.5 ML ML SQ SCH ×4 (07:30→21:17)
[2019-05-03] MEDS: HEPARIN 5000 UNIT/ML 1 ML VIAL SQ SCH ×2 (09:00→21:16)
--- NOTE | 2019-05-03 11:04 | RAD REPORT ---
EXAM DESCRIPTION: Ori Single View05/03/2019 10:58 am CLINICAL HISTORY: Thoracentesis FINDINGS: A pneumothorax is not seen status post right thoracentesis
[2019-05-03] MEDS ORDERED: POTASSIUM 25 MEQ EFFERV TAB PO ONE (12:14)
--- NOTE | 2019-05-03 12:14 | P.PN ---
Subjective Date of Service: 05/03/19 Primary Care Provider: Dr. Perdue Chief Complaint: Shortness of breath, bilateral pleural effusions Subjective: No new changes, Tolerating diet Physical Examination - Vital Signs Temperature: 97.5 F Blood Pressure: 142/67 Pulse: 82 Respirations: 16 Pulse Ox (%): 92 - Physical Exam General: Alert, Oriented x3 HEENT: Atraumatic, Normocephalic Neck: 2+ carotid pulse no bruit, JVD not distended Respiratory: Clear to auscultation bilaterally, Diminished Cardiovascular: Normal pulses, Regular rate/rhythm, Normal S1 S2 Gastrointestinal: Normal bowel sounds, Soft and benign - Studies Laboratory Last Values WBC 3.8 K/uL (4.3-10.9) L D 05/01/19 04:24 RBC 3.47 M/uL (4.33-5.43) L 05/01/19 04:24 Hgb 9.7 g/dL (13.6-17.9) L 05/01/19 04:24 Hct 29.3 % (39.6-49.0) L 05/01/19 04:24 MCV 84.4 fL (80-100) 05/01/19 04:24 MCH 27.9 pg (27.0-35.0) 05/01/19 04:24 MCHC 33.1 g/dL (32.0-36.0) 05/01/19 04:24 RDW 20.0 % (12.1-15.2) H 05/01/19 04:24 Plt Count 255 K/uL (152-406) 05/01/19 04:24 MPV 7.8 fL (7.6-11.3) 05/01/19 04:24 Neutrophils % 64.1 % (41.7-73.7) 05/01/19 04:24 Lymphocytes % 19.3 % (15.3-44.8) 05/01/19 04:24 Monocytes % 15.5 % (3.3-12.3) H 05/01/19 04:24 Eosinophils % 0.4 % (0-4.4) 05/01/19 04:24 Basophils % 0.7 % (0-1.3) 05/01/19 04:24 Absolute Neutrophils 2.4 K/uL (1.8-8.0) 05/01/19 04:24 Absolute Lymphocytes 0.7 K/uL (0.7-4.9) 05/01/19 04:24 Absolute Monocytes 0.6 K/uL (0.1-1.3) 05/01/19 04:24 Absolute Eosinophils 0.0 K/uL (0-0.5) 05/01/19 04:24 Absolute Basophils 0.0 K/uL (0-0.5) 05/01/19 04:24 Poikilocytosis 1+ 04/30/19 14:25 Anisocytosis 1+ 04/30/19 14:25 Morphology Comment Noted (NOT SEEN) 04/30/19 14:25 PT 13.5 SECONDS (9.5-12.5) H 05/01/19 04:24 INR 1.15 05/01/19 04:24 APTT 27.7 SECONDS (24.3-36.9) 05/01/19 04:24 Sodium 138 mmol/L (136-145) 05/02/19 04:22 Potassium 3.7 mmol/L (3.5-5.1) 05/02/19 04:22 Chloride 102 mmol/L (98-107) 05/02/19 04:22 Carbon Dioxide 31 mmol/L (21-32) 05/02/19 04:22 BUN 13 mg/dL (7-18) 05/02/19 04:22 Creatinine 0.53 mg/dL (0.55-1.3) L 05/02/19 04:22 Estimated GFR > 90 mL/min (=/>90) 05/02/19 04:22 Glucose 189 mg/dL (74-106) H 05/02/19 04:22 POC Glucose 144 mg/dl (65-120) H 05/03/19 11:49 Calcium 8.2 mg/dL (8.5-10.1) L 05/02/19 04:22 Phosphorus 3.4 mg/dL (2.5-4.9) 05/01/19 04:24 Magnesium 2.0 mg/dL (1.8-2.4) 05/02/19 04:22 Total Bilirubin 0.6 mg/dL (0.2-1.0) 05/02/19 04:22 AST 81 U/L (15-37) H 05/02/19 04:22 ALT 56 U/L (12-78) 05/02/19 04:22 Alkaline Phosphatase 479 U/L (45-117) H 05/02/19 04:22 Troponin I < 0.02 ng/mL (0.0-0.045) 05/01/19 00:44 NT-Pro-B Natriuret Pep 150 pg/mL (<125) H 05/01/19 04:24 Serum Total Protein 6.7 g/dL (6.4-8.2) 05/02/19 04:22 Albumin 2.8 g/dL (3.4-5.0) L 05/02/19 04:22 Globulin 3.9 g/dL (2.3-3.5) H 05/02/19 04:22 Albumin/Globulin Ratio 0.7 (1.1-1.8) L 05/02/19 04:22 Assessment & Plan Physician Review: Patient Assessed, Agree with Above Assessment and Plan Physician Review Additional Text: # b/l Pleural Effusions - status post right-sided pleural tap today -follow cell count and Gram stain -Still possible mets from prostate ca -Appreciate pulmonary eval -will leave left side pleural effusion for now since appear loculated -c/w gentle diuresis with lasix and aldactone -likely metastatic in nature # HTN -improved control -c/w norvasc/ Toprol 75 mg bid/enalapril/aldactone/lasix # Met Prostate cancer - follow with oncology as outpt # DVT prop- sc heparin
[2019-05-03] MEDS: TAMSULOSIN 0.4 MG SR CAP PO SCH (12:27)
[2019-05-03] MEDS: AMLODIPINE 10 MG TAB PO SCH (12:27)
[2019-05-03] MEDS: ENALAPRIL 10 MG TAB PO SCH ×2 (12:27→21:15)
[2019-05-03] MEDS: FUROSEMIDE 20 MG/ 2ML VIAL IV SCH ×2 (12:28→18:34)
[2019-05-03] MEDS: METOPROLOL TAR 25 MG TAB PO SCH ×2 (12:28→21:16)
[2019-05-03] MEDS: SPIRONOLACTONE 25 MG TABLET PO SCH ×2 (12:30→21:16)
[2019-05-03] MEDS: predniSONE 5 MG TAB PO SCH ×2 (12:30→21:15)
--- NOTE | 2019-05-03 14:52 | RAD REPORT ---
EXAM DESCRIPTION: US - Thoracentesis w/ US Guide - 05/03/2019 10:13 am CLINICAL HISTORY: Right pleural effusion TECHNIQUE: The risks, benefits alternatives to the procedure were explained to the patient and infor med consent obtained. Skiin ,subcutaneous tissues and pleura anesthetized with lidocaine. Right pleural effusion was localized. The pleural effusion is somewhat loculated. Using a posterior approach 18 gauge needle placed into the pleural fluid and approximally 120 millili ters of yellow fluid removed and sent to the lab Patient experienced no immediate complication IMPRESSION: Thoracentesis
[2019-05-03 15:15] LABS: Color of fluid Yellow (COLORLESS)
[2019-05-03 15:16] LABS: Appearance SLT. TURBID (CLEAR); Body Fluid WBC 100 /mm^3
[2019-05-03 15:45] LABS: Body Fluid Source PLEURAL
[2019-05-03] MEDS: HYDROCODONE/APAP 5/325 MG TAB PO PRN (21:16)
[2019-05-04 06:03] LABS: ALT/SGPT 35 U/L (12-78); AST/SGOT 40 U/L (15-37); Albumin 2.7 g/dL (3.4-5.0); Alkaline Phosphatase 432 U/L (45-117); BUN Blood Urea Nitrogen 14 mg/dL (7-18); Bicarbonate 31 mmol/L (21-32); Bilirubin Total 0.5 mg/dL (0.2-1.0); Glucose Level 233 mg/dL (74-106); Magnesium 2.1 mg/dL (1.8-2.4); Protein, Total 6.4 g/dL (6.4-8.2); Sodium Level 139 mmol/L (136-145)
[2019-05-04] MEDS: ENALAPRIL 10 MG TAB PO SCH ×2 (09:12→20:35)
[2019-05-04] MEDS: METOPROLOL TAR 25 MG TAB PO SCH ×2 (09:13→20:35)
[2019-05-04] MEDS: AMLODIPINE 10 MG TAB PO SCH (09:13)
[2019-05-04] MEDS: SPIRONOLACTONE 25 MG TABLET PO SCH ×2 (09:14→20:34)
[2019-05-04] MEDS: FUROSEMIDE 20 MG/ 2ML VIAL IV SCH ×2 (09:14→16:37)
[2019-05-04] MEDS: INSULIN -REGULAR HUMAN 50 UNIT/0.5 ML ML SQ SCH ×4 (09:15→20:35)
[2019-05-04] MEDS: HEPARIN 5000 UNIT/ML 1 ML VIAL SQ SCH ×2 (09:15→20:35)
[2019-05-04] MEDS: TAMSULOSIN 0.4 MG SR CAP PO SCH (09:17)
[2019-05-04] MEDS: predniSONE 5 MG TAB PO SCH ×2 (09:17→20:34)
--- NOTE | 2019-05-04 12:14 | P.PN ---
Subjective Date of Service: 05/04/19 Primary Care Provider: Dr. Perdue Chief Complaint: Shortness of breath, bilateral pleural effusions Subjective: Improving Physical Examination - Vital Signs Temperature: 98 F Blood Pressure: 133/71 Pulse: 82 Respirations: 16 Pulse Ox (%): 93 - Physical Exam General: Alert, In no apparent distress HEENT: Atraumatic, PERRLA, EOMI Neck: Supple, JVD not distended Respiratory: Clear to auscultation bilaterally, Normal air movement Cardiovascular: Regular rate/rhythm, Normal S1 S2 Gastrointestinal: Normal bowel sounds, No tenderness Musculoskeletal: No tenderness Integumentary: No rashes Neurological: Normal speech, Normal tone, Normal affect Lymphatics: No axilla or inguinal lymphadenopathy Assessment & Plan Physician Review: Patient Assessed, Agree with Above Assessment and Plan Physician Review Additional Text: # b/l Pleural Effusions - status post right-sided pleural tap -follow cell count and Gram stain -Still possible mets from prostate ca -Appreciate pulmonary eval -no thoracentesis on left side pleural effusion for now since appear loculated -c/w gentle diuresis with lasix and aldactone -likely metastatic in nature -still on supplemental oxygen, wean off gradually. -pulm on consult. # HTN -improved control -c/w norvasc/ Toprol 75 mg bid/enalapril/aldactone/lasix # Met Prostate cancer - follow with oncology as outpt # DVT prop- sc heparin
[2019-05-04 16:01] LABS: Arterial Blood Carboxyhemoglob 1.4 % (0-1.5); Blood Gas Oxyhemoglobin 86.1 % (94-97); Blood O2 Saturation 87.9 % (92-98.5)
[2019-05-05 07:10] LABS: Absolute Lymphocytes (CBC) 0.9 K/uL (0.7-4.9); Basophils % 0.3 % (0-1.3); Hematocrit 34.8 % (39.6-49.0); Lymphocytes % 16.5 % (15.3-44.8); RBC Red Blood Cell Count 4.12 M/uL (4.33-5.43)
[2019-05-05] MEDS: INSULIN -REGULAR HUMAN 50 UNIT/0.5 ML ML SQ SCH ×4 (07:20→20:16)
[2019-05-05 07:32] LABS: BUN Blood Urea Nitrogen 12 mg/dL (7-18); Bicarbonate 29 mmol/L (21-32); Glucose Level 213 mg/dL (74-106); Potassium 3.8 mmol/L (3.5-5.1); Sodium Level 138 mmol/L (136-145)
[2019-05-05] MEDS: METOPROLOL TAR 25 MG TAB PO SCH (07:44)
[2019-05-05] MEDS: TAMSULOSIN 0.4 MG SR CAP PO SCH (07:45)
[2019-05-05] MEDS: AMLODIPINE 10 MG TAB PO SCH (07:45)
[2019-05-05] MEDS: SPIRONOLACTONE 25 MG TABLET PO SCH ×2 (07:45→20:19)
[2019-05-05] MEDS: HEPARIN 5000 UNIT/ML 1 ML VIAL SQ SCH ×2 (07:46→20:17)
[2019-05-05] MEDS: predniSONE 5 MG TAB PO SCH ×2 (07:46→20:18)
[2019-05-05] MEDS: ENALAPRIL 10 MG TAB PO SCH ×2 (07:46→20:17)
[2019-05-05] MEDS: FUROSEMIDE 20 MG/ 2ML VIAL IV SCH ×2 (07:46→17:23)
--- NOTE | 2019-05-05 10:58 | P.PN ---
Subjective Date of Service: 05/05/19 Primary Care Provider: Dr. Perdue Chief Complaint: Status post thoracentesis Subjective: Improving (Patient is improving doing better wants to go home no new complaints) Review of Systems is unable to be obtained Physical Examination - Vital Signs Temperature: 97.5 F Blood Pressure: 162/75 Pulse: 86 Respirations: 16 Pulse Ox (%): 95 - Physical Exam General: Alert, Cooperative Respiratory: Clear to auscultation bilaterally, Diminished Cardiovascular: No edema, Normal S1 S2 Assessment & Plan - Problems (Diagnosis) (1) Pleural effusion Current Visit: Yes Status: Acute Plan: Patient is status post thoracentesis on the right side so far he has lymphocytic predominant effusion possibly malignancy cytology shows rare atypical cells also has small pericardial effusion without tamponade white count is normal patient can be discharged home he does not qualify for home O2 patient has metastatic prostatic cancer Physician Review: Patient Assessed, Agree with Above Assessment and Plan
--- NOTE | 2019-05-05 11:56 | RAD REPORT ---
EXAM DESCRIPTION: RAD - Chest Pa And Lat (2 Views) - 05/05/2019 11:03 am CLINICAL HISTORY: mary alice pleural effusion, shortness of breath COMPARISON: May 02 imaging TECHNIQUE: Frontal and lateral views of the chest were obtained. FINDINGS: The lungs are slightly underinflated. Heart size is normal range. Upper lobe vasculature is mildly prominent, similar to comparison. Interstitial markings throughout the chest are mildly pr ominent but stable. Moderately large bilateral pleural effusions are present. No pneumothorax. Blasti c metastatic or metabolic bone changes again noted. No aortic abnormality. IMPRESSION: Moderately large bilateral pleural effusions not substantially different from comparison . Diffusely prominent interstitial markings similar to comparison.
[2019-05-05] MEDS ORDERED: D50W 25 GM/50 ML SYRINGE/VIAL IV PRN (12:11)
[2019-05-05] MEDS ORDERED: GLUCAGON 1 MG/VIAL IM PRN (12:11)
--- NOTE | 2019-05-05 16:38 | PN ---
Subjective: Currently patient is sitting on side of the bed. He looks comfortable. He has no chest pain. No abdominal pain. . He continued to be slightly short of breath. Review of Systems: Otherwise negative. Objective: Vital Signs: Blood pressure is 162/75, respiratory rate 16, pulse 86, temperature 97.5. General: Patient is alert and oriented x3. Does not look in any distress. HEENT: Atraumatic, normocephalic. PERRLA. Oral mucosa is moist. Neck: Supple. No JVD. Chest: Clear to auscultation. Decreased breath sounds at the bases. No expiratory wheezing. Heart: Regular rate and rhythm. S1 and S2 normal. No gallop or murmur. Abdomen: Soft, nontender. No masses. No hepatosplenomegaly. Positive bowel sounds. Extremities: No clubbing, no cyanosis, no edema. No calf tenderness. Neurologic: Grossly intact. Laboratory Data: Today, showed CBC within normal except for hemoglobin 11.2, platelets within normal . Chemistry within normal except for creatinine of 0.45, glucose 213 and in the range of cytology for pleural fluid was negative with rare atypical cells present. Chest x-ray done today, re port is still pending. Assessment And Plan: 1.Bilateral pleural effusions status post right-sided thoracentesis. The fluid cytology was inconcl usive, negative for malignancy, which we suspected, but that could be also false-negative. Chest x-r ay looks better today. Dr. Mcclendon evaluated the patient and would like Cardiology to evaluate his tamponade, pericardial effusion before discharge, so we will keep patient and he will be seen by Dr. Grullon. He may need a followup echo as outpatient to follow on that. The patient will not qualify for home O2 as he is saturating well. 2.Hypertension. Needs better control. He is on Norvasc, Toprol-XL, enalapril, Aldactone, and Lasix as well as p.r.n. hydralazine and Flomax. 3.BPH, on Flomax. 4.History of prostate cancer. Needs to follow up with his oncologist. I will check his PSA to see if it is elevated at the patient does not recall. 5.Deep vein thrombosis prophylaxis, on heparin 5000 units twice a day. 6.Pericardial effusion, pending Cardiology eval. LUCIEN/JOHANN Voice ID: [id number] Report ID: [id number]
[2019-05-05] MEDS: HYDROCODONE/APAP 5/325 MG TAB PO PRN (19:24)
[2019-05-05] MEDS: METOPROLOL TAR 50 MG TAB PO SCH (20:18)
[2019-05-05] MEDS ORDERED: INSULIN GLARGINE 100 UNITS/ML SQ SCH (21:00)
[2019-05-05] MEDS ORDERED: ACETAMINOPHEN 500 MG TAB PO PRN (23:15)
[2019-05-06 06:10] LABS: Absolute Lymphocytes (CBC) 0.9 K/uL (0.7-4.9); Basophils % 0.3 % (0-1.3); Hematocrit 32.8 % (39.6-49.0); MPV 7.7 fL (7.6-11.3); RBC Red Blood Cell Count 3.93 M/uL (4.33-5.43)
[2019-05-06 06:37] LABS: BUN Blood Urea Nitrogen 20 mg/dL (7-18); Bicarbonate 29 mmol/L (21-32); Glucose Level 220 mg/dL (74-106); Potassium 3.8 mmol/L (3.5-5.1); Sodium Level 136 mmol/L (136-145)
[2019-05-06 07:21] LABS: Platelet Estimate ADEQ
[2019-05-06 07:22] LABS: Anisocytosis SLIGHT; Blood Morphology Comment NOTED (NOT SEEN)
[2019-05-06] MEDS: INSULIN -REGULAR HUMAN 50 UNIT/0.5 ML ML SQ SCH ×2 (07:30→11:12)
[2019-05-06] MEDS: SPIRONOLACTONE 25 MG TABLET PO SCH (08:51)
[2019-05-06] MEDS: ENALAPRIL 10 MG TAB PO SCH (08:51)
[2019-05-06] MEDS: AMLODIPINE 10 MG TAB PO SCH (08:51)
[2019-05-06] MEDS: FUROSEMIDE 20 MG/ 2ML VIAL IV SCH (08:52)
[2019-05-06] MEDS: HEPARIN 5000 UNIT/ML 1 ML VIAL SQ SCH (08:52)
[2019-05-06] MEDS: METOPROLOL TAR 50 MG TAB PO SCH (08:52)
[2019-05-06] MEDS: TAMSULOSIN 0.4 MG SR CAP PO SCH (08:52)
[2019-05-06] MEDS: predniSONE 5 MG TAB PO SCH (09:54)
[2019-05-06 12:35] VITALS: BP 132/68; TEMP 98.6; O2SAT 96
--- NOTE | 2019-05-06 15:45 | CON ---
Date of Consultation: 05/05/2019 The patient was admitted by Dr. Del Toro on 04/30/2019. I saw the patient on 05/05/2019. Reason For Consultation: Pericardial effusion. History Of Present Illness: Mr. Bernal is a 69-year-old [place]-F[place] male. No previous cardiac h istory. Has a history of hypertension, diabetes, came in with shortness of breath. He has a history of metastatic cancer of the prostate to the bones. He was found to have a pericardial effusion that is moderate without any tamponade and a normal ejection fraction. He was found to have bilateral pl eural effusion. Thoracentesis was done. The patient's symptoms improved. The cytology was positive for some atypical cells, but no definitive diagnosis as far as malignancy and the fluid was given. Patient now is asymptomatic. Denies any shortness of breath, chest pain, nausea, vomiting, diaphores is, PND, orthopnea, pedal edema, palpitation, or syncope. Past Medical History: As stated above. Allergies: NONE. Review of Systems: Negative. Social History: Negative. Family History: Noncontributory. Medications: At home include Flomax, metformin, and Vasotec. Physical Examination: General: Mr. Bernal was in no acute distress. Vital Signs: His blood pressure was 167/89. HEENT: Negative. Neck: Supple. No bruit. Chest: Clear. Cardiac: Revealed a regular rhythm and rate without any murmurs or gallops, but he did have a perica rdial rub. Abdomen: Benign. Extremities: Revealed no clubbing, cyanosis, or edema. Diagnostic Data: As stated earlier include a thoracentesis plus an echocardiogram that showed normal ejection fraction. No valvular abnormalities. He did have a moderate pericardial effusion without any sign of tamponade. Chest x-rayshowed bilateral pleural effusion. Initial gases when he first ca me in was, a pO2 of 56, pCO2 of 40, and pH of 7.46. His blood glucose level was 242. He was also mi ldly anemic. Impression And Plan: Pericardial effusion, probably related to metastatic prostate cancer. The milena ent is not having any symptoms or clinical signs of tamponade. His blood pressure is elevated. He i s asymptomatic right now. He is presently on metoprolol, spironolactone, Norvasc, insulin, and predn isone for his blood pressure and diabetes. From a cardiac standpoint, he does not need any intervent ion now. He can go home whenever it is okay with Dr. Meng and Dr. Del Toro. I will plan to have a repeat echocardiogram in my office in about 1 month and I will make arrangement for that. If it get s worse or if he has any symptoms from it, he will need a pericardial window. His other problems inc luding the diabetes and hypertension seems to be well treated at this point and I will continue to fo llow him if he stays, but as far as I am concerned, he can be discharged today. MISSY/JOHANN Voice ID: [id number] Report ID: [id number]
--- NOTE | 2019-05-07 00:44 | DS ---
Date of Discharge: 05/06/2019 Discharge Diagnoses: 1.Right-sided pleural effusion status post right-sided thoracentesis. 2.Prostate cancer. 3.Hypertension. 4.Pericardial effusion. 5.Diabetes mellitus. 6.Anemia. Consults: 1.Dr. Grullon, Cardiology. 2.Dr. Mcclendon, Pulmonary. Imaging Studies: CT of the chest, abdomen, pelvis, lower extremity venous Doppler. CT of the chest, abdomen, and pelvis showed extensive bony mets, 25 cm left adrenal mass like mets, diffuse edema wit h subcutaneous tissue, negative for PE. [id number] pleural effusion. Left pleural effusion i s partially loculated. Bibasilar atelectasis. Venous Doppler showed no evidence of DVT. Echocardio gram done showed moderate pericardial effusion. No tamponade. Normal left ventricular size and func tion. Procedures: Right-sided thoracentesis, ultrasound-guided. History Of Present Illness: Please refer to admission note. Hospital Course: Initially patient presented with progressive shortness of breath over the last [address] of the chest showed no PE, but there was bilateral pleural effusion as well as diffuse bony mets and renal mass. Patient has history of prostate cancer and he is not sure if he is getting any treatment for that, but he has seen our local oncologist in [place]. His PSA was . G iven his pleural effusion, Dr. Mcclendon was consulted and he advised to proceed with fluid were sent for cytology and was negative. Patient understands this could be false negative and we ar e highly suspecting malignant effusion, so he will need to see his oncologist if at all possible to c onsider starting aggressive treatment for his prostate cancer. In terms of his effusion, Dr. Theresa guerrero will see the patient in the office along with imaging as outpatient. Patient may need t o be placed if his seizures recur and does not respond to treatment. Patient also found to have miguel cardial effusion and Dr. Grullon consulted. The note is still pending, but Dr. Grullon verbally said that the patient can be discharged and he will follow up with him in the office in 1 month. Patient will be discharged today to follow up with primary care physician as well to address his diabetes an d high blood pressure medications as outpatient. Discharge Condition: Stable. Discharge Diet: Cardiac, 1800 ADA. Discharge Activity: As tolerated. Discharge Medications: Vasotec 10 mg once a day, metformin 1000 mg once a day, Flomax 0.4 mg once a day. We added Aldactone 25 mg . Discharge Physical Examination: Vital Signs: Blood pressure is 162/80, respiratory rate 18, pulse 8 5, temperature 98.8, saturating 97% on room air. General: Patient is alert and oriented x3. Does not look in any distress. HEENT: Atraumatic, normocephalic. PERRLA. Oral mucosa is moist. Neck: Supple. No JVD. No bruits. Chest: Clear to auscultation. Decreased breath sounds at the bases. Heart: Regular rate and rhythm. S1 and S2 normal. No gallop or murmur. Abdomen: Soft, nontender. No masses. No hepatosplenomegaly. Positive bowel sounds. Extremities: No clubbing, no cyanosis, no edema. No calf tenderness. Neurologic: Grossly intact. The patient was advised strongly to come back to the emergency room with shortness of breath, if it g ets worse, if he has chest pain or any chest heaviness or any other symptoms. Patient understands with his pericardial effusion, risk o f tamponade as well as . LUCIEN/JOHANN Voice ID: [id number] Report ID: [id number]
== END 2019-05-06 12:35 | disposition home or self-care (01) | DRG 187 ==
LOC: ER 13:27 → ERHOLD 18:27 → 4TH 20:14
PROVIDERS: ADMIT Family Medicine; ATTEND Family Medicine
PROC: 0W993ZX Drainage of Right Pleural Cavity, Percutaneous Approach, Diagnostic (ICD-10-PCS; principal; 2019-05-03)
DX: J90 Pleural effusion, not elsewhere classified (principal); C79.51 Secondary malignant neoplasm of bone; J98.11 Atelectasis; I31.3 Pericardial effusion (noninflammatory); C61 Malignant neoplasm of prostate; I10 Essential (primary) hypertension; E11.9 Type 2 diabetes mellitus without complications; D64.9 Anemia, unspecified
CPT/HCPCS: 32555; 36415; 71045; 71046; 71275; 74177; 76604; 80048; 80053; 82805; 82947; 83036; 83735; 83880; 84100; 84484; 85025; 85610; 85730; 87070; 88108; 88305; 89050; 93306; 93971; 96374; 96375; 99285; G0103; J0360; J1644; J1815; J1940; J2405; J7512; Q9967

== ENCOUNTER 2019-07-02 00:11 | Emergency (ER) | payer OTHER ==
--- OUTSIDE RECORDS SUMMARY | 2019-07-02 00:12 | XMS REPORT | Clinical Summary ---
:1950 Author Organization [facility] Address [address] [place] [address] Care Team Providers Name Role Phone Sergio Morgan DO Primary Care Provider Allergies Not on File Medications No known medications Active Problems No known active problems Family History Medical History Relation Name Comments Diabetes Mother Alie Relation Name Status Comments Mother Alie Social History Tobacco Use Types Packs/Day Years Used Date Former Smoker Cigarettes 1 5 02/21/1974 - 0 02/21/1979 Sex Assigned at Date Recorded Not [...] of 2 - PCV13) 2017 INFLUENZA VACCINE 09/22/2019 Results Not on fileafter 07/01/2018 Advance Directives For more information, please contact: [phone] Type Date Recorded 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
--- OUTSIDE RECORDS SUMMARY | 2019-07-02 00:13 | XMS REPORT ---
:1950 Author Organization [facility] t Address [facility] [place] [address] Care Team Providers Name Role Phone Unavailable Unavailable Unavailable Problems This patient has no known problems. Allergies, Adverse Reactions, Alerts This patient has no known allergies or adverse reactions. Medications This patient has no known medications. Results Test Description Test Time Test Comments Text Results Atomic Results Result Comments RADIO'TX, IV 2019-06-19 16:04:00 Reason for FINAL REPORT PATIENT ADMINISTRATION Exam:->c61, c79.51 ID: [id number] PROCEDURE: RADIONUCLIDE THERAPY - RADIUM CHLORIDE CPT CODE: 53227 INDICATION: Prostate Cancer with bone metastasis PROTOCOL: 88.4 mCi of Ra-223 chloride was injected intravenously by the nuclear medicine physician. Post-treatment radiation precautions were discussed with the patient, and written instructions were provided. IMPRESSION: Alpha particle, nonsealed source, radiotherapy for prostate cancer metastatic to bone. Number 5 of 6 planned treatments. Signed: Raj Paiz Verified Date/Time: 06/19/2019 16:04:25 O'TX, IV 2019-05-17 15:40:00 Reason for FINAL REPORT PATIENT ADMINISTRATION Exam:->bone ID: [id number] metastasis, PROCEDURE: prostate cancer RADIONUCLIDE THERAPY - RADIUM CHLORIDE CPT CODE: 37837 INDICATION: Prostate Cancer with bone metastasis PROTOCOL: 0.082 mCi of Ra-223 chloride was injected intravenously by the nuclear medicine physician. Post-treatment radiation precautions have been discussed with the patient, and written instructions have been provided. IMPRESSION: Alpha particle, nonsealed source, radiotherapy for prostate cancer metastatic to bone. Number 4 of 6 planned treatments. Signed: Aziza Sage Verified Date/Time: 05/17/2019 15:40:48 Reading Location: [address] Reading Room O'TX, IV 2019-04-04 11:55:00 Reason for FINAL REPORT PATIENT ADMINISTRATION Exam:->prostate ID: [id number] cancer PROCEDURE: RADIONUCLIDE THERAPY - RADIUM CHLORIDE CPT CODE: [id number] INDICATION: Prostate Cancer with bone metastasis PROTOCOL: 0.086 mCi of Ra-223 chloride was injected intravenously by the nuclear medicine physician. Post-treatment radiation precautions were discussed with the patient, and written instructions were provided. IMPRESSION: Alpha particle, nonsealed source, radiotherapy for prostate cancer metastatic to bone. Number two of 6 planned treatments. Signed: Raj Paiz Verified Date/Time: 04/04/2019 11:55:56 Reading Location: [address] [place] [facility] Reading Room O'TX, IV 2019-03-02 16:37:00 Reason for FINAL REPORT PATIENT ADMINISTRATION Exam:->prostate ID: [id number] cancer PROCEDURE: RADIONUCLIDE THERAPY - RADIUM CHLORIDE CPT CODE: [id number] INDICATION: Prostate Cancer with bone metastasis PROTOCOL: [...] Sage Verified Date/Time: 03/02/2019 16:37:55 Reading Location: [address] [place] [facility] Reading Room O'TX, IV 2019-01-25 18:41:00 Reason for FINAL REPORT PATIENT ADMINISTRATION Exam:->C61.C79.51 ID: [id number] PROCEDURE: RADIONUCLIDE THERAPY - RADIUM CHLORIDE CPT CODE: 40481 INDICATION: Prostate Cancer with bone metastasis PROTOCOL: 0.088 mCi of Ra-223 chloride was injected intravenously by the nuclear medicine physician. Post-treatment radiation precautions were discussed with the patient and his daughter, and written instructions were provided. IMPRESSION: Alpha particle, nonsealed source, radiotherapy for prostate cancer metastatic to bone. Number 1 of 6 planned treatments. Signed: Aziza Sage Verified Date/Time: 01/25/2019 18:41:49 Reading Location: [address] Reading Room
--- OUTSIDE RECORDS SUMMARY | 2019-07-02 00:13 | XMS REPORT | Clinical Summary ---
:1950 Author Organization [facility] Address [address] [place] [address] Care Team Providers Name Role Phone Unavailable Primary Care Provider Unavailable Allergies No Known Allergies Medications Not on file Active Problems Not on file Encounters Date Type Specialty Care Team Description 06/19/2019 Hospital Encounter Radiology Harshal, Prostate cancer (HCC); Geovanna Randall Bone metastas is (HCC) 06/15/2019 Outside Orders Central Scheduling Jasonharam, Prostat e cancer (HCC) (Primary Dx); Geovanna Randall Bone metastas is (HCC) 05/17/2019 Hospital Encounter Radiology Opalam, Prostate cancer (HCC); Geovanna Randall Bone metastas is (HCC) 05/16/2019 Outside Orders Radiology Jasonharam, Prostate canc er (HCC) (Primary Dx); Geovanna Randall Bone metastas is (HCC) 04/02/2019 Hospital Encounter Radiology Bi, Prostate cancer (HCC) MD Emmett 03/30/2019 Outside Orders Radiology Opalam, Prostate canc er (HCC) Geovanna Randall (Primary Dx) 03/02/2019 Hospital Encounter Radiology Opalam, Prostate cancer (HCC); Geovanna Randall Bone metastas is (HCC) 02/24/2019 Outside Orders Central Scheduling Draksharam, Prostat e cancer (HCC) (Primary Dx); Geovanna Randall Bone metastas is (HCC) 01/25/2019 Hospital Encounter Radiology Harshal, Bone meta stasis (HCC); Geovanna Randall Prostate canc er (HCC) 01/17/2019 Outside Orders Central Scheduling Draksharam, Bone me tastasis (HCC) (Primary Dx); Geovanna Randall, Prostate canc er (HCC) after 07/01/2018 Social History Tobacco Use Types Packs/Day Years Used Date Never Assessed Sex Assigned at Date Recorded Not on file Job Start Date Occupation Industry Not on file Not on file Not on file Travel History Travel Start Travel End No recent travel history available. Last Filed Vital Signs Not on file Plan of Treatment Not on file Procedures Procedure Name Priority Date/Time Associated Comments Diagnosis NM RADIOTHERAPY IV Routine 06/19/2019 2:00 Prostate cancer Re sults for this ADMINISTRATION PM CDT (HCC) procedure are in Bone metastasis the results (HCC) section. NM RADIOTHERAPY IV Routine 05/17/2019 2:50 Prostate cancer Re sults for this ADMINISTRATION PM CDT (HCC) procedure are in Bone metastasis the results (HCC) section. NM RADIOTHERAPY IV Routine 04/02/2019 4:16 Prostate cancer Re sults for this ADMINISTRATION PM MEDICAL TECHNICIAN (HCC) procedure are in the results section. NM RADIOTHERAPY IV Routine 03/02/2019 3:33 Prostate cancer Re sults for this ADMINISTRATION PM MEDICAL TECHNICIAN (HCC) procedure are in Bone metastasis the results (HCC) section. NM RADIOTHERAPY IV Routine 01/25/2019 3:59 Bone metastasis Re sults for this ADMINISTRATION PM MEDICAL TECHNICIAN (HCC) procedure are in Prostate cancer the results (HCC) section. after 07/01/2018 Results NM radiotherapy iv administration (06/19/2019 2:00 PM CDT)Only the most recent of5 resultswithin the time period is included. Specimen Narrative Performed At FINAL REPORT [facility] PROCEDURE:RADIONUCLIDE THERAPY - RADIUM CHLORIDE CPT CODE:[id number] INDICATION:Prostate Cancer w ith bone metastasis PROTOCOL:88.4 mCi of Ra-223 chloride was i njected intravenously by the nuclear medicine physician. Post- treatment radiation precautions were discussed with the milena ent, and written instructions were provided. IMPRESSION: Alpha particle, nons ealed source, radiotherapy for prostate cancer metastatic to bone. Numb er 5 of 6 planned treatments. Signed: Mickie Paiz MD Report Verified Date/Time:06/19/2019 16:04:25 Procedure Note Interface, External Ris In - 06/19/2019 4:06 PM CDT FINAL REPORT PROCEDURE: RADIONUCLIDE THERAPY - RAD IUM CHLORIDE CPT CODE: [id number] INDICATION: Prostate Cancer with cristiana ne metastasis PROTOCOL: 88.4 mCi of Ra-223 chlori de was injected intravenously by the nuclear medicine physician. Post- treatment radiation precautions were discussed with the milena ent, and written instructions were provided. IMPRESSION: Alpha particle, nonseale d source, radiotherapy for prostate cancer metastatic to bone. Numb er 5 of 6 planned treatments. Signed: Mickie Paiz MD Report Verified Date/Time: 06/19/2019 1 6:04:25 Performing Organization Address City/State/Zipcode Phone Number GE RIS after 07/01/2018 Insurance Payer Benefit Plan / Group Subscriber ID Type Phone A ddress [employer] ALL xxxxxxxx Maps Contracted
[2019-07-02] MEDS ORDERED: FENTANYL CITR 100 MCG/2 ML ONE (00:38)
[2019-07-02] MEDS ORDERED: NA CHLORIDE 0.9% 1,000 ML ONE (00:38)
[2019-07-02 00:50] LABS: Absolute Lymphocytes (CBC) 0.6 K/uL (0.7-4.9); Basophils % 1.3 % (0-1.3); Hematocrit 30.1 % (39.6-49.0); Lymphocytes % 16.2 % (15.3-44.8); MPV 7.4 fL (7.6-11.3); RBC Red Blood Cell Count 3.58 M/uL (4.33-5.43)
[2019-07-02 01:04] LABS: BUN Blood Urea Nitrogen 21 mg/dL (7-18); Bicarbonate 24 mmol/L (21-32); Glucose Level 278 mg/dL (74-106); NT PRO-BNP 112 pg/mL (<125); Sodium Level 139 mmol/L (136-145)
[2019-07-02] MEDS ORDERED: HYDROMORPHONE HCL 1 MG/ML INJ ONE (01:08)
[2019-07-02 01:17] LABS: Blood Morphology Comment NOTED (NOT SEEN); Platelet Estimate ADEQ
[2019-07-02 01:18] LABS: Anisocytosis 1+; Ovalocytes 1+
[2019-07-02] MEDS ORDERED: FUROSEMIDE 40 MG/4 ML VIAL ONE (01:20)
--- NOTE | 2019-07-02 01:49 | EDPHYS ---
Physician Documentation [facility] Name: Shantanu Bernal Age: 69 yrs Sex: Male : 1950 Arrival Date: 07/02/2019 Time: 00:15 Bed 5 Private MD: ED Physician Andreas Carias HPI: 07/01 00:39 This 69 yrs old Male presents to ER via Ambulatory with complaints of Leg Pain.snw 00:39 The patient presents with pain, that is acute, swelling. The complaints affect the left snw leg. Context: The problem was sustained at an unknown site, resulted from an unknown cause, the patient can partially bear weight, can ambulate using a cane, Problem is a result from a previous injury: No. Onset: The symptoms/episode began/occurred and became persistent. Associated signs and symptoms: The patient has no apparent associated signs or symptoms. Severity of symptoms: At their worst the symptoms were moderate, severe. The patient has experienced a previous episode, and the symptoms today are exactly the same. It is unknown whether or not the patient has recently seen a physician. 00:39 denies trauma, pt rec'd lasix and hospitalization last visit to ED for same s/s. Sees snw Dr. Cornejo. Pt states s/s have worsened post radiation therapy. Grand-daughter at bedside.. Historical: - Allergies: 00:28 No Known Allergies; lp1 - Home Meds: 00:28 metformin 1,000 mg Oral tr24 twice a day [Active]; tamsulosin 0.4 mg Oral cp24 1 cap lp1 once daily [Active]; Fentanyl Patch Topical [Active]; enalapril maleate 10 mg Oral tab once daily [Active]; - PMHx: 00:28 Diabetes - NIDDM; Hypertension; Prostate Cancer with metastasis to the bone; lp1 - PSHx: 00:28 None; lp1 - Immunization history:: Adult Immunizations up to date. - Social history:: Smoking status: Patient denies any tobacco usage or history of. ROS: 00:38 Constitutional: Negative for fever, chills, and weight loss, Eyes: Negative for injury, snw pain, redness, and discharge, ENT: Negative for injury, pain, and discharge, Neck: Negative for injury, pain, and swelling, Cardiovascular: Negative for chest pain, palpitations, and edema, Abdomen/GI: Negative for abdominal pain, nausea, vomiting, diarrhea, and constipation, Back: Negative for injury and pain, : Negative for injury, bleeding, discharge, and swelling, Skin: Negative for injury, rash, and discoloration, Neuro: Negative for headache, weakness, numbness, tingling, and seizure. 00:38 Respiratory: Positive for shortness of breath, at rest. 00:38 MS/extremity: Positive for pain, swelling, of the left leg. Exam: 00:35 Head/Face: Normocephalic, atraumatic. Eyes: Pupils equal round and reactive to light, snw extra-ocular motions intact. Lids and lashes normal. Conjunctiva and sclera are non-icteric and not injected. Cornea within normal limits. Periorbital areas with no swelling, redness, or edema. ENT: Nares patent. No nasal discharge, no septal abnormalities noted. Tympanic membranes are normal and external auditory canals are clear. Oropharynx with no redness, swelling, or masses, exudates, or evidence of obstruction, uvula midline. Mucous membranes moist. Neck: Trachea midline, no thyromegaly or masses palpated, and no cervical lymphadenopathy. Supple, full range of motion without nuchal rigidity, or vertebral point tenderness. No Meningismus. Chest/axilla: Normal chest wall appearance and motion. Nontender with no deformity. No lesions are appreciated. 00:35 Abdomen/GI: Soft, non-tender, with normal bowel sounds. No distension or tympany. No guarding or rebound. No evidence of tenderness throughout. Back: No spinal tenderness. No costovertebral tenderness. Full range of motion. Skin: Warm, dry with normal turgor. Normal color with no rashes, no lesions, and no evidence of cellulitis. Neuro: Awake and alert, GCS 15, oriented to person, place, time, and situation. Cranial nerves II-XII grossly intact. Motor strength 5/5 in all extremities. Sensory grossly intact. Cerebellar exam normal. Normal gait. 00:35 Constitutional: The patient appears alert, awake, frail. 00:35 Cardiovascular: Rate: tachycardic, Rhythm: regular, Heart sounds: murmur, systolic, grade 3 over 6, Edema: left lower extremity with edema from thigh down. 00:35 Respiratory: mild respiratory distress is noted, Respirations: accessory muscle usage, intercostal retractions, shallow respirations, tachypnea, SpO2 97%. 00:35 Musculoskeletal/extremity: Extremities: grossly normal except: noted in the left leg: pain, swelling. Vital Signs: 00:25 BP 180 / 92; Pulse 117; Resp 20; Temp 98.2; Pulse Ox 97% on R/A; Weight 60.33 kg (R); lp1 Height 5 ft. 5 in. (165.10 cm); Pain 8/10; 01:30 BP 175 / 91; Pulse 108; Resp 16; Pulse Ox 100% on R/A; jb4 02:00 BP 164 / 88; Pulse 111; Resp 16; Pulse Ox 100% on R/A; jb4 00:25 Body Mass Index 22.13 (60.33 kg, 165.10 cm) lp1 MDM: 00:38 Patient medically screened. snw 00:42 Data reviewed: vital signs, nurses notes, lab test result(s), radiologic studies. Data snw interpreted: Pulse oximetry: on room air is 97 %. 05 00:25 Order name: CBC with Diff; Complete Time: 01:30 snw 07/01 00:25 Order name: Chem 7; Complete Time: 01:08 snw 07/01 00:25 Order name: BNP; Complete Time: 01:08 snw 07/01 00:25 Order name: Albumin; Complete Time: 01:08 snw 07/01 00:25 Order name: Chest Single View XRAY snw 07/01 00:52 Order name: Manual Differential; Complete Time: 01:30 EDMS 07/01 00:25 Order name: Femur Left XRAY snw 07/01 00:25 Order name: FSBS; Complete Time: 00:39 snw 07/01 01:01 Order name: Misc. Order: Saline lock IVF; Complete Time: 01:08 snw Administered Medications: 00:39 Drug: NS 0.9% 1000 ml Route: IV; Rate: 50 ml/hr; Site: right antecubital; jb4 01:08 Follow up: Response: No adverse reaction; IV Status: Order to discontinue infusion; IV jb4 Intake: 25ml 00:39 Drug: fentaNYL (PF) 25 mcg {Note: Raqss score 0.} Route: IVP; Site: right antecubital; jb4 00:50 Follow up: Response: No adverse reaction; Pain is unchanged, physician notified; RASS: 4 Alert and Calm (0) 01:09 Drug: Dilaudid 1 mg {Note: Rass score 0.} Route: IM; Site: right deltoid; jb4 01:45 Follow up: Response: No adverse reaction; Pain is decreased; RASS: Alert and Calm (0) jb4 01:24 Drug: Lasix 40 mg Route: IVP; Site: right antecubital; jb4 02:12 Follow up: Urine output 750 ml; Response: No adverse reaction jb4 Disposition: 07:07 Co-signature as Attending Physician, Andreas Carias MD I agree with the assessment and [facility] plan of care. Disposition: 07/02/19 01:48 Discharged to Home. Impression: Personal history of antineoplastic chemotherapy, Metastatic prostate cancer - bone pain, Edema, unspecified, Unspecified combined systolic (congestive) and diastolic (congestive) heart failure. - Condition is Stable. - Discharge Instructions: Anemia, Nonspecific, Heart Failure, Edema, Musculoskeletal Pain, Rehydration, Elderly. - Medication Reconciliation Form, Thank You Letter, Antibiotic Education, Prescription Opioid Use form. - Follow up: Private Physician; When: Tomorrow; Reason: Recheck today's complaints, Continuance of care, Re-evaluation by your physician. Follow up: Emergency Department; When: As needed; Reason: Worsening of condition. Signatures: Dispatcher [employer] EDMS Lourdes Person, CHRISTIN[employer] SUSTAINABILITY CONSULTANT-Csnw Rachelle Conklin RN RN lp1 Matthew Bloom RN RN jb4 Laura Marquez 2 Andreas Carias MD MD [facility] Corrections: (The following items were deleted from the chart) 02:13 01:48 07/02/2019 01:48 Discharged to Home. Impression: Personal history of mw2 antineoplastic chemotherapy; Metastatic prostate cancer - bone pain; Edema, unspecified; Unspecified combined systolic (congestive) and diastolic (congestive) heart failure. Condition is Stable. Discharge Instructions: Anemia, Nonspecific, Heart Failure, Edema, Musculoskeletal Pain, Rehydration, Elderly. Forms are Medication Reconciliation Form, Thank You Letter, Antibiotic Education, Prescription Opioid Use. Follow up: Private Physician; When: Tomorrow; Reason: Recheck today's complaints, Continuance of care, Re-evaluation by your physician. Follow up: Emergency Department; When: As needed; Reason: Worsening of condition. snw
--- NOTE | 2019-07-02 01:49 | ER ---
Nurse's Notes [facility] Name: Shantanu Bernal Age: 69 yrs Sex: Male : 1950 Arrival Date: 07/02/2019 Time: 00:15 Bed 5 Private MD: Diagnosis: Personal history of antineoplastic chemotherapy;Metastatic prostate cancer - bone pain;Edema, unspecified;Unspecified combined systolic (congestive) and diastolic (congestive) heart failure Presentation: 07/01 00:25 Chief complaint: Patient states: Left leg pain that began after last radiation lp1 treatment on 06/19/19, pain worsening; Shortness of breath since yesterday, feeling like heart is beating fast. Coronavirus screen: Proceed with normal triage. Patient denies measured and/or subjective temperature greater than 100.4F prior to today's visit. Ebola Screen: No symptoms or risks identified at this time. Initial Sepsis Screen: Does the patient meet any 2 criteria? No. Patient's initial sepsis screen is negative. Does the patient have a suspected source of infection? No. Patient's initial sepsis screen is negative. Risk Assessment: Do you want to hurt yourself or someone else? Patient reports no desire to harm self or others. Onset of symptoms was July 02, 2019. 00:25 Method Of Arrival: Ambulatory lp1 00:25 Acuity: ERICA 3 lp1 Historical: - Allergies: 00:28 No Known Allergies; lp1 - Home Meds: 00:28 metformin 1,000 mg Oral tr24 twice a day [Active]; tamsulosin 0.4 mg Oral cp24 1 cap lp1 once daily [Active]; Fentanyl Patch Topical [Active]; enalapril maleate 10 mg Oral tab once daily [Active]; - PMHx: 00:28 Diabetes - NIDDM; Hypertension; Prostate Cancer with metastasis to the bone; lp1 - PSHx: 00:28 None; lp1 - Immunization history:: Adult Immunizations up to date. - Social history:: Smoking status: Patient denies any tobacco usage or history of. Screenin:28 Abuse screen: Denies threats or abuse. Denies injuries from another. Nutritional lp1 screening: No deficits noted. Tuberculosis screening: No symptoms or risk factors identified. 00:40 Fall Risk IV access (20 points). Ambulatory Aid- Crutches/Cane/Walker (15 pts). Gait- jb4 Normal/Bed Rest/Wheelchair (0 pts) Mental Status- Oriented to own ability (0 pts). Total Nunez Fall Scale indicates Low Risk Score (25-44 pts). Fall prevention measures have been instituted. Side Rails Up X 2 Placed close to Nursing Station Frequent Obs/Assesments occuring Family Present and informed to notify staff if they need to leave bedside As available Patient and Family Educated on Fall Prevention Program and strategies. Assessment: 00:40 General: Appears in no apparent distress. uncomfortable, Behavior is calm, cooperative, jb4 appropriate for age. Pain: Complains of pain in left leg Pain does not radiate. Pain currently is 8 out of 10 on a pain scale. Neuro: Level of Consciousness is awake, alert, obeys commands, Oriented to person, place, time, situation. Cardiovascular: Capillary refill < 3 seconds in bilateral toes Patient's skin is warm and dry. Pulses are 2+ in left dorsalis pedis artery are 3+ in right dorsalis pedis artery Edema is 1+ to left ankle pitting to left ankle. Respiratory: Airway is patent Respiratory effort is even, unlabored, Respiratory pattern is regular, symmetrical. GI: No signs and/or symptoms were reported involving the gastrointestinal system. : No signs and/or symptoms were reported regarding the genitourinary system. EENT: No signs and/or symptoms were reported regarding the EENT system. Derm: Skin is intact, Skin is pink, warm \T\ dry. Musculoskeletal: Circulation, motion, and sensation intact. Range of motion: intact in all extremities, Swelling present in left foot and left leg. 01:54 Reassessment: Patient appears in no apparent distress at this time. Patient and/or jb4 family updated on plan of care and expected duration. Pain level reassessed. Patient is alert, oriented x 3, equal unlabored respirations, skin warm/dry/pink. PT reports pain has decreased to 5/10 and is tolerable. 02:10 Reassessment: Patient appears in no apparent distress at this time. Patient and/or jb4 family updated on plan of care and expected duration. Pain level reassessed. Patient is alert, oriented x 3, equal unlabored respirations, skin warm/dry/pink. Pt and family verbalized understanding of d/c and follow up instructions. Denies questions or concerns. Pain remains tolerable. Pt assisted to vehicle with family via wheelchair. Vital Signs: 00:25 BP 180 / 92; Pulse 117; Resp 20; Temp 98.2; Pulse Ox 97% on R/A; Weight 60.33 kg (R); lp1 Height 5 ft. 5 in. (165.10 cm); Pain 8/10; 01:30 BP 175 / 91; Pulse 108; Resp 16; Pulse Ox 100% on R/A; jb4 02:00 BP 164 / 88; Pulse 111; Resp 16; Pulse Ox 100% on R/A; jb4 00:25 Body Mass Index 22.13 (60.33 kg, 165.10 cm) lp1 ED Course: 00:15 Patient arrived in ED. cl3 00:18 Lourdes Person FNP-C is PHCP. snw 00:18 Andreas Carias MD is Attending Physician. snw 00:19 Matthew Bloom RN is Primary Nurse. jb4 00:27 Triage completed. lp1 00:27 Arm band placed on. lp1 00:40 Patient has correct armband on for positive identification. Placed in gown. Bed in low jb4 position. Call light in reach. Side rails up X 1. Pulse ox on. NIBP on. 00:40 Albumin Sent. jb4 00:40 BNP Sent. jb4 00:40 Chem 7 Sent. jb4 00:40 CBC with Diff Sent. jb4 00:41 Inserted saline lock: 18 gauge in right forearm, using aseptic technique. dh4 01:05 Chest Single View XRAY In Process Unspecified. EDMS 01:06 Femur Left XRAY In Process Unspecified. EDMS 02:00 No provider procedures requiring assistance completed. IV discontinued, intact, jb4 bleeding controlled, No redness/swelling at site. Pressure dressing applied. Administered Medications: 00:39 Drug: NS 0.9% 1000 ml Route: IV; Rate: 50 ml/hr; Site: right antecubital; jb4 01:08 Follow up: Response: No adverse reaction; IV Status: Order to discontinue infusion; IV jb4 Intake: 25ml 00:39 Drug: fentaNYL (PF) 25 mcg {Note: Raqss score 0.} Route: IVP; Site: right antecubital; jb4 00:50 Follow up: Response: No adverse reaction; Pain is unchanged, physician notified; RASS: jb4 Alert and Calm (0) 01:09 Drug: Dilaudid 1 mg {Note: Rass score 0.} Route: IM; Site: right deltoid; jb4 01:45 Follow up: Response: No adverse reaction; Pain is decreased; RASS: Alert and Calm (0) jb4 01:24 Drug: Lasix 40 mg Route: IVP; Site: right antecubital; jb4 02:12 Follow up: Urine output 750 ml; Response: No adverse reaction jb4 Intake: 01:08 IV: 25ml; Total: 25ml. jb4 Output: 02:12 Urine: 750ml; Total: 750ml. jb4 Outcome: 01:48 Discharge ordered by . snw 02:10 Discharged to home via wheelchair, with family. jb4 02:10 Condition: stable 02:10 Discharge instructions given to patient, family, Instructed on discharge instructions, follow up and referral plans. Demonstrated understanding of instructions, follow-up care. 02:13 Patient left the ED. mw2 Signatures: Dispatcher [employer] EDMS Lourdes Person, RETAIL EVENT ASSISTANT-C RETAIL EVENT ASSISTANT-Csnw Rachelle Conklin RN RN lp1 Matthew Bloom RN RN jb4 Laura Marquez mw2 Charles Peter [address] [facility] Corrections: (The following items were deleted from the chart) 02:16 02:14 Reassessment: Patient appears in no apparent distress at this time. Patient jb4 and/or family updated on plan of care and expected duration. Pain level reassessed. Patient is alert, oriented x 3, equal unlabored respirations, skin warm/dry/pink. Pt and family verbalized understanding of d/c and follow up instructions. Denies questions or concerns. Pain remains tolerable. Pt assisted to vehicle with family via wheelchair. jb4
[2019-07-02 02:21] VITALS: TEMP 98.2
[2019-07-02 02:22] VITALS: BP 175/91; O2SAT 100
--- NOTE | 2019-07-02 08:34 | RAD REPORT ---
EXAM DESCRIPTION: RAD - Chest Single View - 07/02/2019 1:05 am CLINICAL HISTORY: SOB Chest pain. COMPARISON: Chest Pa And Lat (2 Views) dated 05/05/2019; Chest Single View dated 05/03/2019; Chest Sin gle View dated 04/30/2019; Chest Pa And Lat (2 Views) dated 12/10/2018; Thoracentesis w/ US Guide dated 05/03/2019; Chest dated 05/01/2019; Abdomen Pelvis W Contrast dated 04/30/2019 FINDINGS: Portable technique limits examination quality. Moderate bilateral pulmonary opacities are present with bilateral pleural effusions. The heart is sig nificantly enlarged. Areas of sclerosis are present in the osseous structures. IMPRESSION: Moderate CHF. Extensive bony sclerosis likely metastatic in etiology.
--- NOTE | 2019-07-02 08:35 | RAD REPORT ---
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 Vascular calcification is seen. No pathologic fracture is evident.
== END 2019-07-02 02:13 | disposition home or self-care (01) ==
LOC: ER 00:11
DX: C63.7 Malignant neoplasm of other specified male genital organs (principal); C79.52 Secondary malignant neoplasm of bone marrow; Z92.21 Personal history of antineoplastic chemotherapy; R60.9 Edema, unspecified; I50.40 Unspecified combined systolic (congestive) and diastolic (congestive) heart failure; I10 Essential (primary) hypertension; E11.9 Type 2 diabetes mellitus without complications
CPT/HCPCS: 85025; 80048; 36415; 82947; 82040; 83880; 71045; 73552; 96375; 96372; 96374; 99284; J1940; J3010; J1170; J7030

== ENCOUNTER 2019-07-08 17:10 | Emergency (ER) | payer OTHER ==
--- OUTSIDE RECORDS SUMMARY | 2019-07-08 17:13 | XMS REPORT | Clinical Summary ---
:1950 Author Organization [facility] Address [address] [place] [address] Care Team Providers Name Role Phone Unavailable [...] Geovanna Randall, Prostate canc er (HCC) after 07/07/2018 Social History Tobacco Use Types Packs/Day Years [...] cancer Re sults for this ADMINISTRATION PM RESIDENT SERVICES SUPERVISOR (HCC) procedure are in the results section. NM RADIOTHERAPY IV Routine 03/02/2019 3:33 Prostate cancer Re sults for this ADMINISTRATION PM RESIDENT SERVICES SUPERVISOR (HCC) procedure are in Bone metastasis the results (HCC) section. NM RADIOTHERAPY IV Routine 01/25/2019 3:59 Bone metastasis Re sults for this ADMINISTRATION PM RESIDENT SERVICES SUPERVISOR (HCC) procedure are in Prostate cancer the results (HCC) section. after 07/07/2018 Results NM radiotherapy iv administration (06/19/2019 2:00 PM CDT)Only the most recent of5 resultswithin the time period is included. Specimen Narrative Performed At FINAL REPORT [facility] PROCEDURE:RADIONUCLIDE THERAPY - RADIUM CHLORIDE CPT CODE:85817 INDICATION:Prostate Cancer w ith bone metastasis PROTOCOL:88.4 [...] THERAPY - RAD IUM CHLORIDE CPT CODE: [id number] INDICATION: Prostate Cancer with cristiana ne metastasis [...] Address City/State/Zipcode Phone Number GE R[facility] after 07/07/2018 Insurance Payer Benefit Plan / Group Subscriber ID Type Phone A ddress [employer] ALL xxxxxxxx Maps Contracted
--- OUTSIDE RECORDS SUMMARY | 2019-07-08 17:13 | XMS REPORT ---
:1950 Author Organization [facility] t Address [address] [place] [address] Care Team Providers Name Role Phone Sergio Morgan DO Primary Care Physician [phone] Problems This patient has no known problems. Allergies, Adverse Reactions, Alerts This patient has no known allergies or adverse reactions. Family History Family Member Diagnosis Comments Start Date Stop Date Source Natural mother Diabetes [facility] thodist Social History Social Habit Start Date Stop Date Quantity Comments Source Sex Assigned At [facility] ethodist Cigarettes smoked 2018-01-18 2018-01-18 [facility] current (pack per 00:00:00 00:00:00 day) - Reported Cigarette 2018-01-18 2018-01-18 [facility] pack-years 00:00:00 00:00:00 History of tobacco 1974-02-21 1979-02-21 Current smoker [facility] use 00:00:00 00:00:00 Smoking Status Start Date Stop Date Source Former smoker 2018-01-18 00:00:00 2018-01-18 00:00:00 [facility] Medications This patient has no known medications. Procedures This patient has no known procedures. Plan of Care Planned Activity Planned Date Details Comments Source Future Scheduled 2019-09-22 INFLUENZA VACCINE [facility] 00:00:00 [code = INFLUENZA VACCINE] Future Scheduled 2017 65+ PNEUMOCOCCAL [facility] 00:00:00 VACCINE (1 of 2 - PCV13) [code = 65+ PNEUMOCOCCAL VACCINE (1 of 2 - PCV13)] Future Scheduled 2002 COLONOSCOPY SCREENING [facility] Test 00:00:00 [code = COLONOSCOPY SCREENING] Future Scheduled 2002 SHINGLES VACCINES (#1) [facility] 00:00:00 [code = SHINGLES VACCINES (#1)] Results Test Description Test Time Test Comments Results Result Sourc e Comments RADIO'TX, IV 2019-06-19 Reason for FINAL REPORT PATIENT ADMINISTRATION 16:04:00 Exam:->c61, ID: [id number] [id number] PROCEDURE: RADIONUCLIDE THERAPY - RADIUM CHLORIDE CPT CODE: [id number] INDICATION: Prostate Cancer with bone metastasis PROTOCOL: 88.4 mCi of Ra-223 chloride was injected intravenously by the nuclear medicine physician. Post-treatment radiation precautions were discussed with the patient, and written instructions were provided. IMPRESSION: Alpha particle, nonsealed source, radiotherapy for prostate cancer metastatic to bone. Number 5 of 6 planned treatments. Signed: Mickie Paiz Verified Date/Time: 06/19/2019 16:04:25 O'TX, IV 2019-05-17 Reason for FINAL REPORT PATIENT ADMINISTRATION 15:40:00 Exam:->bone ID: [id number] metastasis, PROCEDURE: prostate RADIONUCLIDE THERAPY cancer - RADIUM CHLORIDE CPT CODE: [id number] INDICATION: Prostate Cancer with bone metastasis PROTOCOL: 0.082 mCi of Ra-223 chloride was injected intravenously by the nuclear medicine physician. Post-treatment radiation precautions have been discussed with the patient, and written instructions have been provided. IMPRESSION: Alpha particle, nonsealed source, radiotherapy for prostate cancer metastatic to bone. Number 4 of 6 planned treatments. Signed: Aziza Sage Verified Date/Time: 05/17/2019 15:40:48 Reading Location: [address] Reading Room O'TX, IV 2019-04-04 Reason for FINAL REPORT PATIENT ADMINISTRATION 11:55:00 Exam:->prostat ID: [id number] e cancer PROCEDURE: RADIONUCLIDE THERAPY - RADIUM CHLORIDE CPT CODE: [id number] INDICATION: Prostate Cancer with bone metastasis PROTOCOL: 0.086 mCi of Ra-223 chloride was injected intravenously by the nuclear medicine physician. Post-treatment radiation precautions were discussed with the patient, and written instructions were provided. IMPRESSION: Alpha particle, nonsealed source, radiotherapy for prostate cancer metastatic to bone. Number two of 6 planned treatments. Signed: Mickie Paiz Verified Date/Time: 04/04/2019 11:55:56 Reading Location: [address] Reading Room O'TX, IV 2019-03-02 Reason for FINAL REPORT PATIENT ADMINISTRATION 16:37:00 Exam:->prostat ID: [id number] e cancer PROCEDURE: RADIONUCLIDE THERAPY - RADIUM CHLORIDE CPT CODE: [id number] INDICATION: Prostate Cancer with bone metastasis PROTOCOL: [...] Verified Date/Time: 03/02/2019 16:37:55 Reading Location: [address] Reading Room O'TX, IV 2019-01-25 Reason for FINAL REPORT PATIENT ADMINISTRATION 18:41:00 Exam:->C61.C79 ID: [id number] .[id number] PROCEDURE: RADIONUCLIDE THERAPY - RADIUM CHLORIDE CPT CODE: [id number] INDICATION: Prostate Cancer with bone metastasis PROTOCOL: 0.088 mCi of Ra-223 chloride was injected intravenously by the nuclear medicine physician. Post-treatment radiation precautions were discussed with the patient and his daughter, and written instructions were provided. IMPRESSION: Alpha particle, nonsealed source, radiotherapy for prostate cancer metastatic to bone. Number 1 of 6 planned treatments. Signed: Aziza Sage Verified Date/Time: 01/25/2019 18:41:49 Reading Location: [address] Reading Room
--- OUTSIDE RECORDS SUMMARY | 2019-07-08 17:13 | XMS REPORT | Clinical Summary ---
:1950 Author Organization [facility] Address [address] [place] [address] Care Team Providers Name Role Phone Sergio [...] INFLUENZA VACCINE 09/22/2019 Results Not on fileafter 07/07/2018 Advance Directives For more information, please contact: [phone] Type Date Recorded Patient Log Driver Explanati on Advance Directives, Living Will and Medical Power of Telephone Worker
--- NOTE | 2019-07-08 18:30 | ER ---
[facility] Name: Shantanu Bernal Age: 69 yrs Sex: Male : 1950 Arrival Date: 07/08/2019 Time: 17:14 Bed 18 Private MD: Diagnosis: Sciatica, left side Presentation: 07/07 17:40 Chief complaint: Patient states: right low back pain radiating down right leg, pt aa5 states "It's been going on for a while but this morning it got worse". Pt denies know injury. 17:40 Coronavirus screen: Proceed with normal triage. Patient denies a cough. Patient denies aa5 shortness of breath or difficulty breathing. Patient denies measured and/or subjective temperature greater than 100.4F prior to today's visit. Patient denies travel on a cruise ship or to a country the [facility] currently lists as an affected area. Patient denies contact with known and/or suspected case of COVID-19. Ebola Screen: Patient negative for fever greater than or equal to 101.5 degrees Fahrenheit, and additional compatible Ebola Virus Disease symptoms. Initial Sepsis Screen: Does the patient meet any 2 criteria? HR > 90 bpm. Does the patient have a suspected source of infection? No. Patient's initial sepsis screen is negative. Risk Assessment: Do you want to hurt yourself or someone else? Patient reports no desire to harm self or others. Onset of symptoms was 2020. 17:40 Acuity: ERICA 3 aa5 17:40 Method Of Arrival: Wheelchair aa5 Historical: - Allergies: 17:45 No Known Allergies; aa5 - Home Meds: 17:45 enalapril maleate 10 mg Oral tab once daily [Active]; metformin 1,000 mg Oral tr24 aa5 twice a day [Active]; tamsulosin 0.4 mg Oral cp24 1 cap once daily [Active]; Fentanyl Patch Topical [Active]; - PMHx: 17:45 Diabetes - NIDDM; Hypertension; Prostate Cancer with metastasis to the bone; aa5 - PSHx: 17:45 None; aa5 - Immunization history:: Adult Immunizations unknown. - Social history:: Smoking status: Patient denies any tobacco usage or history of. Screenin:00 Abuse screen: Denies threats or abuse. Denies injuries from another. Nutritional ls4 screening: No deficits noted. Tuberculosis screening: No symptoms or risk factors identified. Fall Risk None identified. Vital Signs: 17:40 BP 124 / 73; Pulse 120; Resp 18 S; Temp 98.8(O); Pulse Ox 95% on R/A; Weight 60.33 kg aa5 (R); Height 5 ft. 5 in. (165.10 cm) (R); Pain 10/10; 19:02 BP 122 / 70; Pulse 88; Resp 19; Temp 98.6(O); Pulse Ox 96% on R/A; Pain 7/10; ls4 17:40 Body Mass Index 22.13 (60.33 kg, 165.10 cm) aa5 ED Course: 17:14 Patient arrived in ED. ag5 17:40 Arm band placed on. aa5 17:44 Triage completed. aa5 18:00 Patient has correct armband on for positive identification. Bed in low position. Call ls4 light in reach. Side rails up X 1. Verbal reassurance given. 18:00 No provider procedures requiring assistance completed. Patient did not have IV access ls4 during this emergency room visit. 18:17 Tia Rodriguez [facility]C is [facility]. kb 18:17 Samson Goncalves MD is Attending Physician. kb Administered Medications: 18:59 Drug: Flexeril 10 mg Route: PO; ls4 19:01 Follow up: Response: No adverse reaction ls4 Outcome: 18:30 Discharge ordered by . kimberlee 19:04 Discharged to home ambulatory. ls4 19:04 Condition: good 19:04 Discharge instructions given to patient, family, Instructed on discharge instructions, follow up and referral plans. medication usage, safety practices, Demonstrated understanding of instructions, follow-up care, medications. 19:05 Patient left the ED. ls4 Signatures: Tia Rodriguez FNP-C FNP-Ckb Calderon, Audri RN RN aa5 Umu Schreiber RN RN ls4 Kailey Toney ag5
--- NOTE | 2019-07-08 18:30 | EDPHYS ---
Physician Documentation [facility] Name: Shantanu Bernal Age: 69 yrs Sex: Male : 1950 Arrival Date: 07/08/2019 Time: 17:14 Bed 18 Private MD: ED Physician Samson Goncalves HPI: 07/07 18:27 This 69 yrs old Male presents to ER via Wheelchair with complaints of Leg Pain.kb 18:28 The patient presents with pain that is acute. The symptoms are located in the left low kb back. Onset: The symptoms/episode began/occurred 2 week(s) ago. The pain radiates to the left leg. Associated signs and symptoms: Pertinent positives: none. The problem was sustained radiation injection. Modifying factors: The patient symptoms are alleviated by nothing, the patient symptoms are aggravated by any movement. Severity of symptoms: At their worst the symptoms were moderate, in the emergency department the symptoms are unchanged. The patient has experienced similar episodes in the past. The patient has not recently seen a physician. Pt states he gets radiation injections to treat cancer and every time he gets the injections his sciatica flares up. States the pain has been worse this morning. States he is no a fentanyl patch, but it isn't time to change it until tonight. States this pain is the exact same pain he gets every time he gets the injection. Historical: - Allergies: 17:45 No Known Allergies; aa5 - Home Meds: 17:45 enalapril maleate 10 mg Oral tab once daily [Active]; metformin 1,000 mg Oral tr24 aa5 twice a day [Active]; tamsulosin 0.4 mg Oral cp24 1 cap once daily [Active]; Fentanyl Patch Topical [Active]; - PMHx: 17:45 Diabetes - NIDDM; Hypertension; Prostate Cancer with metastasis to the bone; aa5 - PSHx: 17:45 None; aa5 - Immunization history:: Adult Immunizations unknown. - Social history:: Smoking status: Patient denies any tobacco usage or history of. ROS: 18:27 Constitutional: Negative for fever, chills, and weight loss, Cardiovascular: Negative kb for chest pain, palpitations, and edema, Respiratory: Negative for shortness of breath, cough, wheezing, and pleuritic chest pain, Abdomen/GI: Negative for abdominal pain, nausea, vomiting, diarrhea, and constipation, MS/Extremity: Negative for injury and deformity, Skin: Negative for injury, rash, and discoloration, Neuro: Negative for headache, weakness, numbness, tingling, and seizure. 18:27 Back: Positive for pain at rest, pain with movement, radiated pain. Exam: 18:27 Constitutional: This is a well developed, well nourished patient who is awake, alert, kb and in no acute distress. Head/Face: Normocephalic, atraumatic. Chest/axilla: Normal chest wall appearance and motion. Nontender with no deformity. No lesions are appreciated. Cardiovascular: Regular rate and rhythm with a normal S1 and S2. No gallops, murmurs, or rubs. Normal PMI, no JVD. No pulse deficits. Respiratory: Lungs have equal breath sounds bilaterally, clear to auscultation and percussion. No rales, rhonchi or wheezes noted. No increased work of breathing, no retractions or nasal flaring. Abdomen/GI: Soft, non-tender, with normal bowel sounds. No distension or tympany. No guarding or rebound. No evidence of tenderness throughout. Skin: Warm, dry with normal turgor. Normal color with no rashes, no lesions, and no evidence of cellulitis. MS/ Extremity: Pulses equal, no cyanosis. Neurovascular intact. Full, normal range of motion. Neuro: Awake and alert, GCS 15, oriented to person, place, time, and situation. Cranial nerves II-XII grossly intact. Motor strength 5/5 in all extremities. Sensory grossly intact. Cerebellar exam normal. Normal gait. 18:27 Back: pain, that is moderate, of the left low back, ROM is normal, normal spinal alignment noted. Vital Signs: 17:40 BP 124 / 73; Pulse 120; Resp 18 S; Temp 98.8(O); Pulse Ox 95% on R/A; Weight 60.33 kg aa5 (R); Height 5 ft. 5 in. (165.10 cm) (R); Pain 10/10; 19:02 BP 122 / 70; Pulse 88; Resp 19; Temp 98.6(O); Pulse Ox 96% on R/A; Pain 7/10; ls4 17:40 Body Mass Index 22.13 (60.33 kg, 165.10 cm) aa5 MDM: 18:17 Patient medically screened. kb 18:27 Data reviewed: vital signs, nurses notes. Data interpreted: Pulse oximetry: on room air kb is 95 %. Interpretation: normal. Counseling: I had a detailed discussion with the patient and/or guardian regarding: the historical points, exam findings, and any diagnostic results supporting the discharge/admit diagnosis, the need for outpatient follow up, a family practitioner, to return to the emergency department if symptoms worsen or persist or if there are any questions or concerns that arise at home. 18:31 ED course: Educated to change fentanyl patch when he gets home. kb 07/07 18:27 Order name: Vital Signs; Complete Time: 18:54 kb Administered Medications: 18:59 Drug: Flexeril 10 mg Route: PO; ls4 19:01 Follow up: Response: No adverse reaction ls4 Disposition: 19:07 Co-signature as Attending Physician, Samson Goncalves MD. rn Disposition: 07/08/19 18:30 Discharged to Home. Impression: Sciatica, left side. - Condition is Stable. - Discharge Instructions: Sciatica, Ascf-kb-Phel. - Medication Reconciliation Form, Thank You Letter, Antibiotic Education, Prescription Opioid Use form. - Follow up: Emergency Department; When: As needed; Reason: Worsening of condition. Follow up: Private Physician; When: 2 - 3 days; Reason: Recheck today's complaints, Continuance of care, Re-evaluation by your physician. Signatures: Tia Rodriguez, HEAD BOYS GOLF COACH-C HEAD BOYS GOLF COACH-Ckb Samson Goncalves MD MD rn Calderon, Audri RN RN aa5 Umu Schreiber, BART RN ls4 Corrections: (The following items were deleted from the chart) 18:31 18:28 Pt states he gets radiation injections to treat cancer and every time he gets the kb injections his sciatica flares up. States the pain has been worse this morning. States he is no a fentanyl patch, but it isn't time to change it until tonight. . kb 19:05 18:30 07/08/2019 18:30 Discharged to Home. Impression: Sciatica, left side. Condition ls4 is Stable. Forms are Medication Reconciliation Form, Thank You Letter, Antibiotic Education, Prescription Opioid Use. Follow up: Emergency Department; When: As needed; Reason: Worsening of condition. Follow up: Private Physician; When: 2 - 3 days; Reason: Recheck today's complaints, Continuance of care, Re-evaluation by your physician. kb
[2019-07-08] MEDS ORDERED: CYCLOBENZAPRINE 10 MG TAB ONE (19:02)
[2019-07-08 19:13] VITALS: BP 122/70; TEMP 98.6; O2SAT 96
== END 2019-07-08 19:05 | disposition home or self-care (01) ==
LOC: ER 17:10
DX: M54.32 Sciatica, left side (principal); C61 Malignant neoplasm of prostate; C79.51 Secondary malignant neoplasm of bone; I10 Essential (primary) hypertension; E11.9 Type 2 diabetes mellitus without complications
CPT/HCPCS: 99283

== ENCOUNTER 2019-07-08 22:39 | Emergency (ER) | payer OTHER ==
--- OUTSIDE RECORDS SUMMARY | 2019-07-08 23:05 | XMS REPORT | Clinical Summary ---
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
--- OUTSIDE RECORDS SUMMARY | 2019-07-08 23:05 | XMS REPORT | Clinical Summary ---
:1950 Author Organization [facility] Address [address] [place] [address] Care Team Providers Name Role Phone Unavailable [...] Draksharam, Bone me tastasis (HCC) (Primary Dx); Geovanan Randall, Prostate canc er (HCC) after 07/07/2018 [...] cancer Re sults for this ADMINISTRATION PM HOME ENERGY RATER (HCC) procedure are in the results section. NM RADIOTHERAPY IV Routine 03/02/2019 3:33 Prostate cancer Re sults for this ADMINISTRATION PM HOME ENERGY RATER (HCC) procedure are in Bone metastasis the results (HCC) section. NM RADIOTHERAPY IV Routine 01/25/2019 3:59 Bone metastasis Re sults for this ADMINISTRATION PM HOME ENERGY RATER (HCC) procedure are in Prostate cancer the results (HCC) section. after 07/07/2018 Results NM radiotherapy iv administration (06/19/2019 2:00 PM CDT)Only the most recent of5 resultswithin the time period is included. Specimen Narrative Performed At FINAL REPORT [facility] PROCEDURE:RADIONUCLIDE THERAPY - RADIUM CHLORIDE CPT CODE:[id number] INDICATION:Prostate Cancer w ith bone metastasis PROTOCOL:88.4 [...] THERAPY - RAD IUM CHLORIDE CPT CODE: [id number] INDICATION: Prostate Cancer with cristiana ne metastasis [...]
--- OUTSIDE RECORDS SUMMARY | 2019-07-08 23:06 | XMS REPORT ---
:1950 Author Organization [facility] t Address [address] [place] [address] Care Team Providers Name Role Phone Sergio Morgan DO Primary Care Physician [phone] This patient has no known problems. Allergies, Adverse Reactions, Alerts This patient has no known allergies or adverse reactions. Family History Family Member Diagnosis Comments Start Date Stop Date Source Natural mother Diabetes [facility] thodi Social History Social Habit Start Date Stop Date Quantity Comments Source Sex Assigned At [facility] ethodi Cigarettes smoked 2018-01-18 2018-01-18 Shawn Hameedist current (pack per 00:00:00 00:00:00 day) - Reported Cigarette 2018-01-18 2018-01-18 Escobar Method ist pack-years 00:00:00 00:00:00 History of tobacco 1974-02-21 1979-02-21 Current smoker Angel Hameedist use 00:00:00 00:00:00 Smoking Status Start Date Stop Date Source Former smoker 2018-01-18 00:00:00 2018-01-18 00:00:00 Shawn Hameedist Medications This patient has no known medications. Procedures This patient has no known procedures. Plan of Care Planned Activity Planned Date Details Comments Source Future Scheduled 2019-09-22 INFLUENZA VACCINE Usha Parikh Test 00:00:00 [code = INFLUENZA VACCINE] Future Scheduled 2017 65+ PNEUMOCOCCAL Shawn Hameedist Test 00:00:00 VACCINE (1 of 2 - PCV13) [code = 65+ PNEUMOCOCCAL VACCINE (1 of 2 - PCV13)] Future Scheduled 2002 COLONOSCOPY SCREENING [place] [facility] Test 00:00:00 [code = COLONOSCOPY SCREENING] Future Scheduled 2002 SHINGLES VACCINES (#1) Elizabeth gay [facility] Test 00:00:00 [code = SHINGLES VACCINES (#1)] Results Test Description Test Time Test Comments Results Result Sourc e Comments RADIO'TX, IV 2019-06-19 Reason for FINAL REPORT PATIENT ADMINISTRATION 16:04:00 Exam:->c61, ID: [id number] c79.51 PROCEDURE: RADIONUCLIDE THERAPY - RADIUM CHLORIDE CPT CODE: 07782 INDICATION: Prostate Cancer with bone metastasis PROTOCOL: [...] FINAL REPORT PATIENT ADMINISTRATION 15:40:00 Exam:->bone ID: [id number] metastasis, PROCEDURE: prostate RADIONUCLIDE THERAPY cancer - RADIUM CHLORIDE CPT CODE: 08698 INDICATION: Prostate Cancer with bone metastasis PROTOCOL: 0.082 mCi of Ra-223 chloride was injected intravenously by the nuclear medicine physician. Post-treatment radiation precautions have been discussed with the patient, and written instructions have been provided. IMPRESSION: Alpha particle, nonsealed source, radiotherapy for prostate cancer metastatic to bone. Number 4 of 6 planned treatments. Signed: Aziza Sage Verified Date/Time: 05/17/2019 15:40:48 Reading Location: [address] Reading Room O'TX, IV 2019-04-04 Reason for FINAL REPORT PATIENT ADMINISTRATION 11:55:00 Exam:->prostat ID: [id number] e cancer PROCEDURE: RADIONUCLIDE THERAPY - RADIUM CHLORIDE CPT CODE: [id number] INDICATION: Prostate Cancer with bone metastasis PROTOCOL: 0.086 mCi of Ra-223 chloride was injected intravenously by the nuclear medicine physician. Post-treatment radiation precautions were discussed with the patient, and written instructions were provided. IMPRESSION: Alpha particle, nonsealed source, radiotherapy for prostate cancer metastatic to bone. Number two of 6 planned treatments. Signed: Mickie Paiz Verified Date/Time: 04/04/2019 11:55:56 Reading Location: [address] Reading Room O'TX, IV 2019-03-02 Reason for FINAL REPORT PATIENT ADMINISTRATION 16:37:00 Exam:->prostat ID: [id number] e cancer PROCEDURE: RADIONUCLIDE THERAPY - RADIUM CHLORIDE CPT CODE: [id number] INDICATION: Prostate Cancer with bone metastasis PROTOCOL: [...] Sage Verified Date/Time: 03/02/2019 16:37:55 Reading Location: [address] Reading Room O'TX, IV 2019-01-25 Reason for FINAL REPORT PATIENT ADMINISTRATION 18:41:00 Exam:->C61.C79 ID: [id number] .51 PROCEDURE: RADIONUCLIDE THERAPY - RADIUM CHLORIDE CPT CODE: 12174 INDICATION: Prostate Cancer with bone metastasis PROTOCOL: 0.088 mCi of Ra-223 chloride was injected intravenously by the nuclear medicine physician. Post-treatment radiation precautions were discussed with the patient and his daughter, and written instructions were provided. IMPRESSION: Alpha particle, nonsealed source, radiotherapy for prostate cancer metastatic to bone. Number 1 of 6 planned treatments. Signed: Aziza Sage Verified Date/Time: 01/25/2019 18:41:49 Reading Location: [address] Reading Room
--- NOTE | 2019-07-08 23:14 | ER ---
Nurse's Notes [facility] Name: Shantanu Bernal Age: 69 yrs Sex: Male : 1950 Arrival Date: 07/08/2019 Time: 22:42 Bed 5 Private MD: Ankush Perdue Diagnosis: Chronic pain, not elsewhere classified Presentation: 07/07 22:47 Chief complaint: Patient states: Was seen and evaluated earlier today for leg pain, sg reports now having "pain all over". Coronavirus screen: Proceed with normal triage. Ebola Screen: Patient negative for fever greater than or equal to 101.5 degrees Fahrenheit, and additional compatible Ebola Virus Disease symptoms Patient denies exposure to infectious person. Patient denies travel to an Ebola-affected area in the 21 days before illness onset. No symptoms or risks identified at this time. Initial Sepsis Screen: Does the patient meet any 2 criteria? No. Patient's initial sepsis screen is negative. Does the patient have a suspected source of infection? No. Patient's initial sepsis screen is negative. Risk Assessment: Do you want to hurt yourself or someone else? Patient reports no desire to harm self or others. Onset of symptoms was July 08, 2019. 22:47 Method Of Arrival: Wheelchair 22:47 Acuity: ERICA 3 22:47 Chief complaint: Patient states: Reports generalized pain and started having upper mary alice ea extremity pain this afternoon. Triage Assessment: 23:00 General: Appears uncomfortable, Behavior is calm, cooperative. Pain: Complains of pain rv in ALL OVER. Neuro: Level of Consciousness is awake, alert, obeys commands. 23:00 Cardiovascular: Patient's skin is warm and dry. Respiratory: Airway is patent. Derm: rv Skin with poor turgor. Historical: - Allergies: 22:51 No Known Allergies; sg - PMHx: 22:51 Diabetes - NIDDM; Hypertension; Prostate Cancer with metastasis to the bone; sg - PSHx: 22:51 None; sg - Immunization history:: Adult Immunizations up to date. - Social history:: Smoking status: Patient denies any tobacco usage or history of. Screenin:53 Abuse screen: Denies threats or abuse. Nutritional screening: No deficits noted. ea Tuberculosis screening: No symptoms or risk factors identified. Fall Risk None identified. Vital Signs: 22:53 BP 190 / 82; Pulse 118; Resp 17; Pulse Ox 95% on R/A; Weight 60.33 kg; Height 5 ft. 5 ea in. (165.10 cm); 23:04 BP 166 / 109; Pulse 114; Resp 17; Pulse Ox 95% on R/A; rv 22:53 Body Mass Index 22.13 (60.33 kg, 165.10 cm) ea ED Course: 22:42 Patient arrived in ED. mr 22:42 Ankush Perdue MD is Private Physician. mr 22:43 Santi Schofield RN is Primary Nurse. rv 22:51 Triage completed. sg 22:51 Holland Ochoa MD is Attending Physician. tw4 22:51 Arm band placed on. sg 22:54 Patient has correct armband on for positive identification. Bed in low position. Call ea light in reach. Side rails up X 1. 23:13 Ankush Perdue MD is Referral Physician. tw4 23:45 Primary Nurse role handed off by Santi Schofield RN rv 23:46 Santi Schofield RN is Primary Nurse. rv 23:47 No provider procedures requiring assistance completed. Patient did not have IV access rv during this emergency room visit. Administered Medications: 23:15 Drug: Kopperl (7.5 mg-325 mg) 1 tabs {Note: RASS 0.} Route: PO; rv 23:40 Follow up: Response: No adverse reaction; RASS: Alert and Calm (0) rv Outcome: 23:14 Discharge ordered by . tw4 23:39 Patient left the ED. sg 23:47 Discharged to home ambulatory. rv 23:47 Condition: good 23:47 Discharge instructions given to patient, Instructed on discharge instructions, follow up and referral plans. Demonstrated understanding of instructions, follow-up care. 23:47 Patient left the ED. rv Signatures: Romeo Gentile, RN BART Shaka Emma rojas Mini Jarquin RN RN ea Wadley, Terrence, MD MD 4 Santi Schofield RN RN rv
--- NOTE | 2019-07-08 23:14 | EDPHYS ---
Physician Documentation [facility] Name: Shantanu Bernal Age: 69 yrs Sex: Male : 1950 Arrival Date: 07/08/2019 Time: 22:42 Bed 5 Private MD: Ankush Perdue ED Physician Holland Ochoa HPI: 07/07 23:10 This 69 yrs old Male presents to ER via Wheelchair with complaints of Pain All tw4 Over. 23:10 pt has a hx of chronic pain from cancer was recently earlier for chronic pain and tw4 diagnosed with sciatica. . Onset: The symptoms/episode began/occurred today. Severity of symptoms: At their worst the symptoms were moderate in the emergency department the symptoms are unchanged. The patient has not experienced similar symptoms in the past. 23:13 The patient has been recently seen at the [facility] Emergency tw4 Department, today. Historical: - Allergies: 22:51 No Known Allergies; sg - PMHx: 22:51 Diabetes - NIDDM; Hypertension; Prostate Cancer with metastasis to the bone; sg - PSHx: 22:51 None; sg - Immunization history:: Adult Immunizations up to date. - Social history:: Smoking status: Patient denies any tobacco usage or history of. ROS: 23:10 Constitutional: Negative for fever, chills, and weight loss, Eyes: Negative for injury, tw4 pain, redness, and discharge, Cardiovascular: Negative for chest pain, palpitations, and edema, Respiratory: Negative for shortness of breath, cough, wheezing, and pleuritic chest pain, Abdomen/GI: Negative for abdominal pain, nausea, vomiting, diarrhea, and constipation, Back: Negative for injury and pain, MS/Extremity: Negative for injury and deformity, Skin: Negative for injury, rash, and discoloration, Neuro: Negative for headache, weakness, numbness, tingling, and seizure. Exam: 23:10 Constitutional: This is a well developed, well nourished patient who is awake, alert, tw4 and in no acute distress. Head/Face: Normocephalic, atraumatic. Chest/axilla: Normal chest wall appearance and motion. Nontender with no deformity. No lesions are appreciated. Cardiovascular: Regular rate and rhythm with a normal S1 and S2. No gallops, murmurs, or rubs. Normal PMI, no JVD. No pulse deficits. Respiratory: Lungs have equal breath sounds bilaterally, clear to auscultation and percussion. No rales, rhonchi or wheezes noted. No increased work of breathing, no retractions or nasal flaring. Abdomen/GI: Soft, non-tender, with normal bowel sounds. No distension or tympany. No guarding or rebound. No evidence of tenderness throughout. Back: No spinal tenderness. No costovertebral tenderness. Full range of motion. MS/ Extremity: Pulses equal, no cyanosis. Neurovascular intact. Full, normal range of motion. Neuro: Awake and alert, GCS 15, oriented to person, place, time, and situation. Cranial nerves II-XII grossly intact. Motor strength 5/5 in all extremities. Sensory grossly intact. Cerebellar exam normal. Normal gait. Vital Signs: 22:53 BP 190 / 82; Pulse 118; Resp 17; Pulse Ox 95% on R/A; Weight 60.33 kg; Height 5 ft. 5 ea in. (165.10 cm); 23:04 BP 166 / 109; Pulse 114; Resp 17; Pulse Ox 95% on R/A; rv 22:53 Body Mass Index 22.13 (60.33 kg, 165.10 cm) ea MDM: 23:10 Data reviewed: vital signs, nurses notes. Test interpretation: by ED physician or tw4 midlevel provider: not applicable. Counseling: I had a detailed discussion with the patient and/or guardian regarding: the historical points, exam findings, and any diagnostic results supporting the discharge/admit diagnosis. 23:14 Patient medically screened. tw4 Administered Medications: 23:15 Drug: Mccomb (7.5 mg-325 mg) 1 tabs {Note: RASS 0.} Route: PO; rv 23:40 Follow up: Response: No adverse reaction; RASS: Alert and Calm (0) rv Disposition: 07/08/19 23:14 Discharged to Home. Impression: Chronic pain, not elsewhere classified. - Condition is Stable. - Discharge Instructions: Chronic Back Pain, Chronic Pain. - Medication Reconciliation Form, Thank You Letter, Antibiotic Education, Prescription Opioid Use form. - Follow up: Ankush Perdue MD; When: Upon discharge from the Emergency Department; Reason: Recheck today's complaints, Continuance of care, Re-evaluation by your physician. - Problem is new. - Symptoms have improved. Signatures: Romeo Gentile RN RN sg Holland Ochoa MD MD tw4 Santi Schofield RN RN rv Corrections: (The following items were deleted from the chart) 23:39 23:14 07/08/2019 23:14 Discharged to Home. Impression: Chronic pain, not elsewhere sg classified. Condition is Stable. Forms are Medication Reconciliation Form, Thank You Letter, Antibiotic Education, Prescription Opioid Use. Follow up: Ankush Perdue; When: Upon discharge from the Emergency Department; Reason: Recheck today's complaints, Continuance of care, Re-evaluation by your physician. Problem is new. Symptoms have improved. tw4 23:47 23:39 07/08/2019 23:14 Discharged to Home. Impression: Chronic pain, not elsewhere rv classified. Condition is Stable. Discharge Instructions: Chronic Back Pain, Chronic Pain. Forms are Medication Reconciliation Form, Thank You Letter, Antibiotic Education, Prescription Opioid Use. Follow up: Ankush Perdue; When: Upon discharge from the Emergency Department; Reason: Recheck today's complaints, Continuance of care, Re-evaluation by your physician. Problem is new. Symptoms have improved. sg
[2019-07-08] MEDS ORDERED: HYDROCODONE/APAP 7.5/325 MG TAB ONE (23:18)
[2019-07-08 23:51] VITALS: O2SAT 95
[2019-07-08 23:52] VITALS: BP 166/109
== END 2019-07-08 23:47 | disposition home or self-care (01) ==
LOC: ER 22:39
DX: G89.29 Other chronic pain (principal); C61 Malignant neoplasm of prostate; C79.51 Secondary malignant neoplasm of bone; I10 Essential (primary) hypertension; E11.9 Type 2 diabetes mellitus without complications
CPT/HCPCS: 99283

== ENCOUNTER 2019-07-11 14:48 | Inpatient (IN) | payer OTHER ==
--- OUTSIDE RECORDS SUMMARY | 2019-07-11 15:49 | XMS REPORT | Clinical Summary ---
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
--- OUTSIDE RECORDS SUMMARY | 2019-07-11 15:49 | XMS REPORT | Clinical Summary ---
:1950 Author Organization [facility] Address [address] [place] [address] Care Team Providers Name Role Phone Unavailable [...] Geovanna Randall, Prostate canc er (HCC) after 07/10/2018 Social History Tobacco Use Types Packs/Day Years [...] cancer Re sults for this ADMINISTRATION PM CAREER SERVICES MANAGER (HCC) procedure are in the results section. NM RADIOTHERAPY IV Routine 03/02/2019 3:33 Prostate cancer Re sults for this ADMINISTRATION PM CAREER SERVICES MANAGER (HCC) procedure are in Bone metastasis the results (HCC) section. NM RADIOTHERAPY IV Routine 01/25/2019 3:59 Bone metastasis Re sults for this ADMINISTRATION PM CAREER SERVICES MANAGER (HCC) procedure are in Prostate cancer the results (HCC) section. after 07/10/2018 Results NM radiotherapy iv administration (06/19/2019 2:00 PM CDT)Only the most recent of5 resultswithin the time period is included. Specimen Narrative Performed At FINAL REPORT [facility] PROCEDURE:RADIONUCLIDE THERAPY - RADIUM CHLORIDE CPT CODE:93153 INDICATION:Prostate Cancer w ith bone metastasis PROTOCOL:88.4 [...] THERAPY - RAD IUM CHLORIDE CPT CODE: 70117 INDICATION: Prostate Cancer with cristiana ne metastasis [...] Address City/State/Zipcode Phone Number GE RIS after 07/10/2018 Insurance Payer Benefit Plan / Group Subscriber ID Type Phone A ddress [employer] [place] xxxxxxxx Maps Contracted
--- OUTSIDE RECORDS SUMMARY | 2019-07-11 15:49 | XMS REPORT ---
:1950 Author Organization [facility] t Address [address] [place] [address] Care Team Providers Name Role Phone Sergio Morgan DO Primary Care Physician [phone] Problems This patient has no known problems. Allergies, Adverse Reactions, Alerts This patient has no known allergies or adverse reactions. Family History Family Member Diagnosis Comments Start Date Stop Date Source Natural mother Diabetes [facility] thodi Social History Social Habit Start Date Stop Date Quantity Comments Source Sex Assigned At [facility] ethodi Cigarettes smoked 2018-01-18 2018-01-18 Shawn Hameedist [...] Future Scheduled 2002 COLONOSCOPY SCREENING [place] [facility] Test 00:00:00 [code = COLONOSCOPY SCREENING] Future Scheduled 2002 SHINGLES VACCINES (#1) Elizabeth gay [facility] Test 00:00:00 [code = SHINGLES VACCINES (#1)] Results Test Description Test Time Test Comments Results Result Sourc e Comments RADIO'TX, IV 2019-06-19 Reason for FINAL REPORT PATIENT ADMINISTRATION 16:04:00 Exam:->c61, ID: [id number] [id number] PROCEDURE: RADIONUCLIDE THERAPY - RADIUM CHLORIDE CPT CODE: [id number] INDICATION: Prostate Cancer with bone metastasis PROTOCOL: [...] FINAL REPORT PATIENT ADMINISTRATION 15:40:00 Exam:->bone ID: [id number] metastasis, PROCEDURE: prostate RADIONUCLIDE THERAPY cancer - RADIUM CHLORIDE CPT CODE: 90369 INDICATION: Prostate Cancer with bone metastasis PROTOCOL: 0.082 mCi of Ra-223 chloride was injected intravenously by the nuclear medicine physician. Post-treatment radiation precautions have been discussed with the patient, and written instructions have been provided. IMPRESSION: Alpha particle, nonsealed source, radiotherapy for prostate cancer metastatic to bone. Number 4 of 6 planned treatments. Signed: Aziza Sage Verified Date/Time: 05/17/2019 15:40:48 Reading Location: [address] Reading Room O'TX, IV 2019-04-04 Reason for FINAL REPORT PATIENT ADMINISTRATION 11:55:00 Exam:->prostat ID: [id number] e cancer PROCEDURE: RADIONUCLIDE THERAPY - RADIUM CHLORIDE CPT CODE: [id number] INDICATION: Prostate Cancer with bone metastasis PROTOCOL: 0.086 mCi of Ra-223 chloride was injected intravenously by the nuclear medicine physician. Post-treatment radiation precautions were discussed with the patient, and written instructions were provided. IMPRESSION: Alpha particle, nonsealed source, radiotherapy for prostate cancer metastatic to bone. Number two of 6 planned treatments. Signed: Mickie Paiz Verified Date/Time: 04/04/2019 11:55:56 Reading Location: [address] Reading Room O'TX, IV 2019-03-02 Reason for FINAL REPORT PATIENT ADMINISTRATION 16:37:00 Exam:->prostat ID: [id number] e cancer PROCEDURE: RADIONUCLIDE THERAPY - RADIUM CHLORIDE CPT CODE: 07198 INDICATION: Prostate Cancer with bone metastasis PROTOCOL: [...] Sage Verified Date/Time: 03/02/2019 16:37:55 Reading Location: [address] Reading Room O'TX, IV 2019-01-25 Reason for FINAL REPORT PATIENT ADMINISTRATION 18:41:00 Exam:->C61.C79 ID: [id number] .51 PROCEDURE: RADIONUCLIDE THERAPY - RADIUM CHLORIDE CPT CODE: [id number] INDICATION: Prostate Cancer with bone metastasis PROTOCOL: 0.088 mCi of Ra-223 chloride was injected intravenously by the nuclear medicine physician. Post-treatment radiation precautions were discussed with the patient and his daughter, and written instructions were provided. IMPRESSION: Alpha particle, nonsealed source, radiotherapy for prostate cancer metastatic to bone. Number 1 of 6 planned treatments. Signed: Aziza Sage Verified Date/Time: 01/25/2019 18:41:49 Reading Location: [address] Reading Room
[2019-07-11 17:20] LABS: Absolute Lymphocytes (CBC) 0.6 K/uL (0.7-4.9); Basophils % 0.6 % (0-1.3); Hematocrit 30.7 % (39.6-49.0); MPV 7.5 fL (7.6-11.3); RBC Red Blood Cell Count 3.62 M/uL (4.33-5.43)
[2019-07-11] MEDS ORDERED: NA CHLORIDE 0.9% 250 ML ONE (17:20)
[2019-07-11] MEDS ORDERED: ACETAMINOPHEN 325 MG TABLET ONE (17:20)
[2019-07-11 17:34] LABS: BUN Blood Urea Nitrogen 16 mg/dL (7-18); Bicarbonate 27 mmol/L (21-32); Glucose Level 167 mg/dL (74-106); Potassium 4.3 mmol/L (3.5-5.1); Sodium Level 141 mmol/L (136-145)
[2019-07-11 17:57] LABS: Anisocytosis 1+; Blood Morphology Comment NOTED (NOT SEEN); Platelet Estimate ADEQ; Urine White Blood Cell Casts OK
--- NOTE | 2019-07-11 19:24 | RAD REPORT ---
[facility] DES[facility]11[facility] 7:07 pm CLINICAL HISTORY: left leg pain and swelling. COMPARISON: April 2019 FINDINGS: Left common femoral, superficial femoral, popliteal and posterior tibial veins are compre ssible and demonstrate augmentation. Doppler demonstrates good flow. Mild left inguinal lymphadenopathy without change IMPRESSION: No evidence of deep venous thrombosis involving the left lower extremity.
--- NOTE | 2019-07-11 19:54 | RAD REPORT ---
EXAM DESCRIPTION: CT - Chest For Pe Angio - 07/11/2019 7:41 pm CLINICAL HISTORY: Chest pain COMPARISON: April 2019 TECHNIQUE: Dynamically enhanced axial 3 mm thick images of the chest were obtained during administra tion of <100> mL Isovue 370 IV contrast. Coronal and oblique reconstruction images were generated and reviewed. Exam utilizes a protocol for optimal evaluation of pulmonary arterial tree. Maximum intensity projections 3D imaging was utilized All CT scans are performed using dose optimization technique as appropriate and may include automated exposure control or mA/KV adjustment according to patient size. FINDINGS: Small amount of thrombus is present within left upper lobe pulmonary artery. No thrombus w ithin the main, right main and left main and right pulmonary arteries. Large right and moderate to large left pleural effusions. Bibasilar atelectasis Mild bilateral pulmonary opacities. Extensive sclerotic bony metastases IMPRESSION: Small amount of left pulmonary embolus CHF Extensive bony metastases
--- NOTE | 2019-07-11 21:39 | EDPHYS ---
Physician Documentation [facility] Name: Shantanu Bernal Age: 69 yrs Sex: Male : 1950 Arrival Date: 07/11/2019 Time: 14:50 Bed 6 Private MD: ED Physician Holland Ochoa HPI: 07/10 16:43 This 69 yrs old Male presents to ER via Wheelchair with complaints of Leg kdr Swelling. 16:43 The patient presents with pain, that is acute, swelling, tenderness. The complaints kdr affect the lateral aspect of left thigh, left hamstring, medial aspect of left thigh and left quadriceps. Context: The problem was sustained at home, resulted from an unknown cause, the patient can fully bear weight, the patient is able to ambulate, with mild difficulty, Problem is a result from a previous injury: No. Onset: The symptoms/episode began/occurred gradually, 8 day(s) ago. Modifying factors: The symptoms are alleviated by remaining still, the symptoms are aggravated by movement, weight bearing, bending knee. Associated signs and symptoms: The patient has no apparent associated signs or symptoms. Treatment prior to arrival includes: no previous treatment. Severity of symptoms: At their worst the symptoms were moderate, in the emergency department the symptoms are unchanged. The patient has not experienced similar symptoms in the past. The patient has not recently seen a physician. Historical: - Allergies: 15:36 No Known Allergies; ca1 - Home Meds: 15:36 enalapril maleate 10 mg Oral tab once daily [Active]; Fentanyl Patch Topical [Active]; ca1 metformin 1,000 mg Oral tr24 twice a day [Active]; tamsulosin 0.4 mg Oral cp24 1 cap once daily [Active]; - PMHx: 15:36 Diabetes - NIDDM; Hypertension; Prostate Cancer with metastasis to the bone; ca1 - PSHx: 15:36 None; ca1 - Immunization history:: Adult Immunizations up to date. - Social history:: Smoking status: Patient denies any tobacco usage or history of. ROS: 16:43 Constitutional: Negative for fever, chills, and weight loss, Eyes: Negative for injury, kdr pain, redness, and discharge, ENT: Negative for injury, pain, and discharge, Neck: Negative for injury, pain, and swelling, Cardiovascular: Negative for chest pain, palpitations, and edema, Respiratory: Negative for shortness of breath, cough, wheezing, and pleuritic chest pain, Abdomen/GI: Negative for abdominal pain, nausea, vomiting, diarrhea, and constipation, Back: Negative for injury and pain, : Negative for injury, bleeding, discharge, and swelling, Skin: Negative for injury, rash, and discoloration, Neuro: Negative for headache, weakness, numbness, tingling, and seizure activity. Psych: Negative for depression, anxiety, suicide ideation, homicidal ideation, and hallucinations, Allergy/Immunology: Negative for hives, rash, and allergies, Endocrine: Negative for neck swelling, polydipsia, polyuria, polyphagia, and marked weight changes, Hematologic/Lymphatic: Negative for swollen nodes, abnormal bleeding, and unusual bruising. 16:43 MS/extremity: Positive for pain, swelling, warmth, of the lateral aspect of left thigh, left hamstring, medial aspect of left thigh and left quadriceps. Exam: 16:43 Constitutional: This is a well developed, well nourished patient who is awake, alert, kdr and in no acute distress. Head/Face: Normocephalic, atraumatic. Eyes: Pupils equal round and reactive to light, extra-ocular motions intact. Lids and lashes normal. Conjunctiva and sclera are non-icteric and not injected. Cornea within normal limits. Periorbital areas with no swelling, redness, or edema. Neck: Trachea midline, no thyromegaly or masses palpated, and no cervical lymphadenopathy. Supple, full range of motion without nuchal rigidity, or vertebral point tenderness. No Meningismus. Chest/axilla: Normal chest wall appearance and motion. Nontender with no deformity. No lesions are appreciated. Cardiovascular: Regular rate and rhythm with a normal S1 and S2. No gallops, murmurs, or rubs. Normal PMI, no JVD. No pulse deficits. Respiratory: Lungs have equal breath sounds bilaterally, clear to auscultation and percussion. No rales, rhonchi or wheezes noted. No increased work of breathing, no retractions or nasal flaring. Abdomen/GI: Soft, non-tender, with normal bowel sounds. No distension or tympany. No guarding or rebound. No evidence of tenderness throughout. Back: No spinal tenderness. No costovertebral tenderness. Full range of motion. Skin: Warm, dry with normal turgor. Normal color with no rashes, no lesions, and no evidence of cellulitis. Neuro: Awake and alert, GCS 15, oriented to person, place, time, and situation. Cranial nerves II-XII grossly intact. Motor strength 5/5 in all extremities. Sensory grossly intact. Cerebellar exam normal. Normal gait. Psych: Awake, alert, with orientation to person, place and time. Behavior, mood, and affect are within normal limits. 16:43 Musculoskeletal/extremity: Extremities: grossly normal except: noted in the lateral aspect of left thigh, left hamstring, medial aspect of left thigh and left quadriceps: pain, swelling, tenderness, The patient has swelling to the left thigh from the knee to the inguinal ligament. There is no focal point of swelling - diffuse upper thigh, ROM: no acute changes, Circulation is intact in all extremities. Sensation intact. Vital Signs: 15:25 BP 141 / 68; Pulse 111; Resp 18 S; Temp 98.9(TE); Pulse Ox 95% on R/A; Weight 58.51 kg ca1 (R); Height 5 ft. 5 in. (165.10 cm) (R); Pain 9/10; 17:11 BP 164 / 82; Pulse 108; Resp 16; Pulse Ox 94% ; jl7 17:49 BP 162 / 82; Pulse 102; Resp 16; Pulse Ox 91% ; jl7 19:17 BP 163 / 80; Pulse 106; Resp 18; Pulse Ox 92% on R/A; ea 23:17 BP 154 / 77; Pulse 98; Resp 18; Pulse Ox 98% on R/A; ea 15:25 Body Mass Index 21.47 (58.51 kg, 165.10 cm) ca1 MDM: 21:39 Patient medically screened. tw4 23:16 Differential diagnosis: dislocation, open fracture, closed fracture, contusion. Data tw4 reviewed: vital signs, nurses notes. Data reviewed: lab test result(s), CBC, electrolytes, hepatic panel. Data interpreted: Pulse oximetry: Interpretation: normal. Counseling: I had a detailed discussion with the patient and/or guardian regarding: the historical points, exam findings, and any diagnostic results supporting the discharge/admit diagnosis, lab results, radiology results. Physician consultation: Christiane Maria MD was called at 21:30, was contacted at 21:30, regarding admission, to the telemetry unit. and will see patient in inpatient room. Special discussion: I discussed with the patient/guardian in detail that at this point there is no indication for admission to the hospital. It is understood, however, that if the symptoms persist or worsen the patient needs to return immediately for re-evaluation. 07/10 16:43 Order name: CBC with Diff; Complete Time: 18:14 kdr 07/10 16:43 Order name: Chem 7; Complete Time: 18:14 kdr 07/10 16:43 Order name: Blood Culture Adult (2) kdr 07/10 17:57 Order name: CBC Smear Scan; Complete Time: 18:14 EDMS 07/10 18:14 Order name: DD; Complete Time: 19:12 kdr 07/10 22:29 Order name: CBC with Automated Diff EDMS 07/10 22:29 Order name: CBC with Automated Diff EDMS 07/10 22:29 Order name: Comprehensive Metabolic Panel EDMS 07/10 22:29 Order name: Comprehensive Metabolic Panel EDMS 07/10 22:29 Order name: Magnesium EDMS 07/10 22:29 Order name: Magnesium EDMS 07/10 22:29 Order name: NT PRO-BNP EDMS 07/10 22:29 Order name: NT PRO-BNP EDMS 07/10 22:29 Order name: Phosphorus EDMS 07/10 16:43 Order name: US Extremity Venous Unilateral Ltd kdr 07/10 19:11 Order name: CT Chest For PE Angio; Complete Time: 21:05 tw4 07/10 22:29 Order name: CONS Physician Consult EDMS 07/10 22:29 Order name: NPO EDMS 07/10 22:29 Order name: Phosphorus EDMS 07/10 22:29 Order name: Protime (+INR) EDMS 07/10 22:29 Order name: Protime (+INR) EDMS 07/10 22:29 Order name: PTT, Activated Partial Thromb EDMS 07/10 22:29 Order name: PTT, Activated Partial Thromb EDMS 07/10 22:31 Order name: Thoracentesis w/ US Guide EDMS 07/10 22:31 Order name: Thoracentesis w/ US Guide EDMS Administered Medications: 17:17 Drug: Tylenol 650 mg Route: PO; jl7 17:45 Follow up: Response: No adverse reaction; Pain is decreased jl7 17:18 Drug: NS 0.9% 250 ml Route: IV; Rate: bolus; Site: right forearm; jl7 18:00 Follow up: Response: No adverse reaction; IV Status: Completed infusion; IV Intake: jl7 250ml Disposition: 07/11/19 21:39 Hospitalization ordered by Christiane Maria for Inpatient Admission. Preliminary diagnosis are Pulmonary embolism without acute cor pulmonale, Unspecified combined systolic (congestive) and diastolic (congestive) heart failure, Hypoxemia. - Bed requested for Telemetry/MedSurg (Inpatient). - Status is Inpatient Admission. ea - Condition is Stable. - Problem is new. - Symptoms have improved. Signatures: Dispatcher [employer] EDMS Bri Peter RN RN Cruz Mcnair MD MD kdr Leal, Jahala, RN RN jl7 Mini Jarquin RN RN ea Wadley, Terrence, MD MD tw4 Haley Parnell RN RN ca1 Corrections: (The following items were deleted from the chart) 23:12 21:39 Hospitalization Ordered by Christiane Maria MD for Inpatient Admission. Preliminary kl diagnosis is Pulmonary embolism without acute cor pulmonale; Unspecified combined systolic (congestive) and diastolic (congestive) heart failure; Hypoxemia. Bed requested for Telemetry/MedSurg (Inpatient). Status is Inpatient Admission. Condition is Stable. Problem is new. Symptoms have improved. [facility] 23:51 23:12 07/11/2019 21:39 Hospitalization Ordered by Christiane Maria MD for Inpatient ea Admission. Preliminary diagnosis is Pulmonary embolism without acute cor pulmonale; Unspecified combined systolic (congestive) and diastolic (congestive) heart failure; Hypoxemia. Bed requested for Telemetry/MedSurg (Inpatient). Status is Inpatient Admission. Condition is Stable. Problem is new. Symptoms have improved. kl
--- NOTE | 2019-07-11 21:39 | ER ---
Nurse's Notes [facility] Name: Shantanu Bernal Age: 69 yrs Sex: Male : 1950 Arrival Date: 07/11/2019 Time: 14:50 Bed 6 Private MD: Diagnosis: Pulmonary embolism without acute cor pulmonale;Unspecified combined systolic (congestive) and diastolic (congestive) heart failure;Hypoxemia Presentation: 07/10 15:25 Chief complaint: Patient states: "L leg pain and swelling from the thigh to the foot, ca1 and small amount urine since Tuesday. The L leg pain has been going on for a while now but flares up, they said it's the side effect of radiation for Prostate Ca that has spread to the bones. Had completed 5/ radiation, once a month . They usually just give me a shot that makes me pee and when I pee the pain and swelling goes away.". Coronavirus screen: Proceed with normal triage. Patient denies a cough. Patient denies shortness of breath or difficulty breathing. Patient denies measured and/or subjective temperature greater than 100.4F prior to today's visit. Patient denies travel on a cruise ship or to a country the [facility] currently lists as an affected area. Patient denies contact with known and/or suspected case of COVID-19. Ebola Screen: Patient negative for fever greater than or equal to 101.5 degrees Fahrenheit, and additional compatible Ebola Virus Disease symptoms Patient denies exposure to infectious person. Patient denies travel to an Ebola-affected area in the 21 days before illness onset. No symptoms or risks identified at this time. Initial Sepsis Screen: Does the patient meet any 2 criteria? No. Patient's initial sepsis screen is negative. Does the patient have a suspected source of infection? No. Patient's initial sepsis screen is negative. Risk Assessment: Do you want to hurt yourself or someone else? Patient reports no desire to harm self or others. Onset of symptoms was July 11, 2019. 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 ca1 Historical: - Allergies: 15:36 No Known Allergies; ca1 - Home Meds: 15:36 enalapril maleate 10 mg Oral tab once daily [Active]; Fentanyl Patch Topical [Active]; ca1 metformin 1,000 mg Oral tr24 twice a day [Active]; tamsulosin 0.4 mg Oral cp24 1 cap once daily [Active]; - PMHx: 15:36 Diabetes - NIDDM; Hypertension; Prostate Cancer with metastasis to the bone; ca1 - PSHx: 15:36 None; ca1 - Immunization history:: Adult Immunizations up to date. - Social history:: Smoking status: Patient denies any tobacco usage or history of. Screenin:10 Abuse screen: Denies threats or abuse. Denies injuries from another. Nutritional jl7 screening: No deficits noted. Tuberculosis screening: No symptoms or risk factors identified. Fall Risk IV access (20 points). Total Nunez Fall Scale indicates No Risk (0-24 pts). Assessment: 16:30 General: Appears in no apparent distress. uncomfortable, Behavior is calm, cooperative, jl7 appropriate for age. Pain: Complains of pain in left upper thigh Pain currently is 8 out of 10 on a pain scale. Neuro: Level of Consciousness is awake, alert, obeys commands. Cardiovascular: Patient's skin is warm and dry. Pulses are palpable in right dorsalis pedis artery and left dorsalis pedis artery. Respiratory: Airway is patent Respiratory effort is even, unlabored, Respiratory pattern is regular, symmetrical. Derm: Skin is pink, warm \\T\\ dry. Musculoskeletal: Swelling present in left upper thigh. 17:49 Reassessment: Patient appears in no apparent distress at this time. No changes from jl7 previously documented assessment. Patient and/or family updated on plan of care and expected duration. Pain level reassessed. Patient is alert, oriented x 3, equal unlabored respirations, skin warm/dry/pink. 18:00 Reassessment: Pt's O2 sats 91%, breath sounds diminished on bilateral lower lobes, pt jl7 denies SOB, ERD notified. 19:16 General: Appears in no apparent distress. Behavior is calm, cooperative, appropriate ea for age. Pain: Complains of pain in left leg. Neuro: Level of Consciousness is awake, alert, obeys commands. Cardiovascular: Patient's skin is warm and dry. Respiratory: Airway is patent Respiratory effort is even, unlabored, Respiratory pattern is regular, symmetrical. Derm: Skin is pink, warm \\T\\ dry. Musculoskeletal: Swelling present in left quadriceps. 19:25 Reassessment: Pt taken to CT. ea 20:00 Reassessment: Patient and/or family updated on plan of care and expected duration. Pain ea level reassessed. Patient is alert, oriented x 3, equal unlabored respirations, skin warm/dry/pink. 21:30 Reassessment: Patient and/or family updated on plan of care and expected duration. Pain ea level reassessed. Patient is alert, oriented x 3, equal unlabored respirations, skin warm/dry/pink. 22:30 Reassessment: Patient and/or family updated on plan of care and expected duration. Pain ea level reassessed. Patient is alert, oriented x 3, equal unlabored respirations, skin warm/dry/pink. 23:15 Reassessment: Patient and/or family updated on plan of care and expected duration. Pain ea level reassessed. Patient is alert, oriented x 3, equal unlabored respirations, skin warm/dry/pink. 23:37 Reassessment: Patient and/or family updated on plan of care and expected duration. Pain ea level reassessed. Patient is alert, oriented x 3, equal unlabored respirations, skin warm/dry/pink. Report given to Mini ARRIAGA on second floor. Vital Signs: 15:25 BP 141 / 68; Pulse 111; Resp 18 S; Temp 98.9(TE); Pulse Ox 95% on R/A; Weight 58.51 kg ca1 (R); Height 5 ft. 5 in. (165.10 cm) (R); Pain 9/10; 17:11 BP 164 / 82; Pulse 108; Resp 16; Pulse Ox 94% ; jl7 17:49 BP 162 / 82; Pulse 102; Resp 16; Pulse Ox 91% ; jl7 19:17 BP 163 / 80; Pulse 106; Resp 18; Pulse Ox 92% on R/A; ea 23:17 BP 154 / 77; Pulse 98; Resp 18; Pulse Ox 98% on R/A; ea 15:25 Body Mass Index 21.47 (58.51 kg, 165.10 cm) ca1 ED Course: 14:50 Patient arrived in ED. ag5 15:35 Triage completed. ca1 15:36 Arm band placed on right wrist. ca1 16:11 Cruz Bowen MD is Attending Physician. kdr 16:11 Perdue, Jahala, RN is Primary Nurse. jl7 16:57 Inserted saline lock: 20 gauge in right forearm, using aseptic technique. Blood jl7 collected. 16:57 First set of blood cultures drawn by me. jl7 17:05 Initial lab(s) drawn, by me, sent to lab. Second set of blood cultures drawn by me. jl7 17:10 Patient has correct armband on for positive identification. Placed in gown. Bed in low jl7 position. Call light in reach. Side rails up X 1. Pulse ox on. NIBP on. 19:08 US Extremity Venous Unilateral Ltd In Process Unspecified. EDMS 19:12 Attending Physician role handed off by Cruz Bowen MD tw4 19:12 Holland Ochoa MD is Attending Physician. tw4 19:12 Notified ED physician of a critical lab result(s). D-Dimer 20,497. jl7 19:41 CT Chest For PE Angio In Process Unspecified. EDMS 21:03 Primary Nurse role handed off by Susannah Perdue RN 21:37 Christiane Maria MD is Hospitalizing Provider. tw4 23:14 Mini Jarquin RN is Primary Nurse. ea 23:14 No provider procedures requiring assistance completed. Patient admitted, IV remains in ea place. Administered Medications: 17:17 Drug: Tylenol 650 mg Route: PO; jl7 17:45 Follow up: Response: No adverse reaction; Pain is decreased jl7 17:18 Drug: NS 0.9% 250 ml Route: IV; Rate: bolus; Site: right forearm; jl7 18:00 Follow up: Response: No adverse reaction; IV Status: Completed infusion; IV Intake: jl7 250ml Intake: 18:00 IV: 250ml; Total: 250ml. jl7 Outcome: 21:39 Decision to Hospitalize by Provider. tw4 23:18 Instructed on the need for admit, Demonstrated understanding of instructions. ea 23:27 Condition: stable ea 23:50 Admitted to Med/surg accompanied by tech, via stretcher, room 220, with chart, Report ea called to Receiving nurse on second floor 23:51 Patient left the ED. ea Signatures: Dispatcher [employer] EDMS Romeo Gentile RN RN Cruz Bowen MD MD [facility] Susannah Perdue RN RN [facility] Mini Jarquin RN Holland Douglas ea, MD MD tw4 Haley Parnell RN BART ca1 Kailey Toney ag5 Corrections: (The following items were deleted from the chart) 18:22 16:30 Pain: Denies pain. vadim jl7
[2019-07-11] MEDS ORDERED: PIPER/TAZO/NS 3.375gm 3.375 GM/100 ML BAG ONE (23:49)
[2019-07-12 00:07] VITALS: BMI 20.7
[2019-07-12] MEDS: PIPER/TAZO/NS 3.375gm 3.375 GM/100 ML BAG IVPB SCH ×3 (00:29→16:00)
[2019-07-12] MEDS: ACETAMINOPHEN 500 MG TAB PO PRN ×3 (00:37→21:56)
[2019-07-12] MEDS: FUROSEMIDE 40 MG/4 ML VIAL IV SCH ×3 (00:38→15:59)
[2019-07-12] MEDS ORDERED: PIPER/TAZO/NS 3.375gm 3.375 GM/100 ML BAG ONE (01:31)
--- NOTE | 2019-07-12 03:16 | P.HP ---
Certification for Inpatient Patient admitted to: Inpatient With expected LOS: >2 Midnights Patient will require the following post-hospital care: None Practitioner: I am a practitioner with admitting privileges, knowledge of patient current condition, hospital course, and medical plan of care. Services: Services provided to patient in accordance with Admission requirements found in Title 42 Section 412.3 of the Code of Federal Regulations Patient History Date of Service: 07/11/19 Reason for admission: Shortness of breath History of Present Illness: Patient is a 69-year-old gentleman with history of metastatic prostate cancer who came into the emergency room with severe shortness of breath. Patient was found to have bilateral pleural effusion with congestive heart failure. CT scan also revealed a distal left pulmonary embolism. Patient we started on anti coagulation with Lovenox. Patient will need to have a thoracentesis. Allergies No Known Allergies Allergy (Verified 11/30/18 11:21) Home Medications: Enalapril [Vasotec*] 1 tab PO DAILY 04/30/19 Metformin HCl [Metformin ER Osmotic] 1 tab PO DAILY 04/30/19 Tamsulosin [Flomax*] 0.4 mg PO DAILY cap 05/06/19 Hydrocodone 5/APAP 325 [[place] 5/325*] 1 tab PO SEECOM PRN 07/12/19 Linagliptin [Tradjenta] 5 mg PO DAILY 07/12/19 Morphine Sulfate [Morphine Sulfate Cr] 15 mg PO SEECOM PRN 07/12/19 Spironolactone [Aldactone*] 25 mg PO DAILY 07/12/19 fentaNYL [Fentanyl] 1 patch SEECOM 07/12/19 - Past Medical/Surgical History Has patient received pneumonia vaccine in the past: Yes Diabetic: Yes -: HTN -: DMII -: Prostate CA mets to bone on radiation - Family History Brother Medical History: Hypertension, Diabetes Sister Medical History: Hypertension, Diabetes Mother Medical History: Diabetes - Social History Smoking Status: Former smoker Alcohol use: No CD- Drugs: No Caffeine use: Yes Place of Residence: Home Review of Systems 10-point ROS is otherwise unremarkable Physical Examination - Vital Signs Temperature: 98.4 F Blood Pressure: 154/77 Pulse: 98 Respirations: 20 Pulse Ox (%): 92 - Physical Exam General: Alert, In no apparent distress, Oriented x3 Respiratory: Diminished, Crackles/rales Cardiovascular: Regular rate/rhythm, Normal S1 S2, No murmurs Gastrointestinal: Normal bowel sounds, Soft and benign, Non-distended, No tenderness Musculoskeletal: No clubbing, Swelling Neurological: Normal gait, Normal speech, Normal strength at 5/5 x4 extr, Normal tone, Sensation intact, Cranial nerves 3-12 intact Lymphatics: No axilla or inguinal lymphadenopathy - Studies Laboratory Data (last 24 hrs) 07/11/19 17:05: Sodium 141, Potassium 4.3, BUN 16, Creatinine 0.48 L, Glucose 167 H 07/11/19 17:05: WBC 3.5 L, Hgb 10.0 L, Hct 30.7 L, Plt Count 263 Assessment & Plan - Problems (Diagnosis) (1) CHF (congestive heart failure) Current Visit: Yes Status: Acute (2) Malignant pleural effusion Current Visit: Yes Status: Acute (3) Shortness of breath Current Visit: Yes Status: Acute (4) Diabetes mellitus Current Visit: No Status: Acute Qualifiers: Diabetes mellitus type: type 2 Diabetes mellitus retirement insulin use: without intermediate teacher use Diabetes mellitus complication status: without complication Qualified Code(s): E11.9 - Type 2 diabetes mellitus without complications (5) HTN (hypertension) Current Visit: No Status: Acute Qualifiers: Hypertension type: essential hypertension Qualified Code(s): I10 - Essential (primary) hypertension - Plan Plan: 1. Radiology consultation for thoracentesis 2. Pulmonary consultation for possible pleurodesis 3. Continue with gentle diuresing 4. IV antibiotics 5. Echocardiogram 6. Continue with cardiac meds 7. Outpatient Hematology Oncology consultation 8. possible hospice care at the time of discharge Discharge Plan: Home Plan to discharge in: Greater than 2 days - Advance Directives Does patient have a Living Will: No Does patient have a Durable POA for Healthcare: No - Code Status/Comfort Care Code Status Assessed: Yes Code Status: Full Code Critical Care: No Time Spent Managing PTS Care (In Minutes): 45
[2019-07-12] MEDS ORDERED: HEPARIN/D5W 25,000 UNIT/500 ML BAG IV SCH ×2 (04:00→08:00)
[2019-07-12 04:12] LABS: Absolute Lymphocytes (CBC) 0.6 K/uL (0.7-4.9); Basophils % 0.5 % (0-1.3); Hematocrit 29.5 % (39.6-49.0); Lymphocytes % 15.4 % (15.3-44.8); MPV 7.8 fL (7.6-11.3); RBC Red Blood Cell Count 3.57 M/uL (4.33-5.43)
[2019-07-12 04:15] LABS: Protime INR 1.1
[2019-07-12 04:36] LABS: ALT/SGPT 15 U/L (12-78); AST/SGOT 47 U/L (15-37); Albumin 2.6 g/dL (3.4-5.0); Alkaline Phosphatase 267 U/L (45-117); BUN Blood Urea Nitrogen 12 mg/dL (7-18); Bicarbonate 27 mmol/L (21-32); Bilirubin Total 0.5 mg/dL (0.2-1.0); Glucose Level 160 mg/dL (74-106); NT PRO-BNP 465 pg/mL (<125); Phosphorus 2.8 mg/dL (2.5-4.9); Protein, Total 6.8 g/dL (6.4-8.2); Sodium Level 138 mmol/L (136-145)
[2019-07-12] MEDS: ONDANSETRON 4 MG/2 ML VIAL IV PRN (06:59)
[2019-07-12] MEDS ORDERED: ENOXAPARIN 60 MG/0.6 ML SQ SCH (09:00)
[2019-07-12] MEDS ORDERED: HEPARIN 5000 UNIT/ML 1 ML VIAL IV PRN (10:00)
[2019-07-12] MEDS ORDERED: HEPARIN 10,000 UNIT/10 ML VIAL IV PRN (10:00)
[2019-07-13] MEDS: PIPER/TAZO/NS 3.375gm 3.375 GM/100 ML BAG IVPB SCH ×2 (00:09→08:13)
[2019-07-13] MEDS: FUROSEMIDE 40 MG/4 ML VIAL IV SCH ×3 (00:14→16:38)
[2019-07-13] MEDS ORDERED: GLUCAGON 1 MG/VIAL IM PRN (07:36)
[2019-07-13] MEDS ORDERED: D50W 25 GM/50 ML SYRINGE/VIAL IV PRN (07:36)
--- NOTE | 2019-07-13 09:59 | P.PN ---
Subjective Date of Service: 07/12/19 Patient continues to do well with no new complaints. Plan to do thoracentesis in the morning. Pulmonary consultation has been obtained. Continue with gentle diuresing. Pain control as well. Outpatient follow with Pulmonary. Review of Systems 10-point ROS is otherwise unremarkable Physical Examination - Vital Signs Temperature: 97.8 F Blood Pressure: 130/80 Pulse: 93 Respirations: 18 Pulse Ox (%): 93 - Physical Exam General: Alert, In no apparent distress, Oriented x3 Respiratory: Crackles/rales Cardiovascular: Regular rate/rhythm, Normal S1 S2, Systolic murmur Gastrointestinal: Normal bowel sounds, Soft and benign, Non-distended, No tenderness Musculoskeletal: No clubbing, No swelling, No tenderness Neurological: Normal tone, Sensation intact, Cranial nerves 3-12 intact - Studies Medications List Reviewed: Yes Assessment & Plan - Problems (Diagnosis) (1) Malignant pleural effusion Current Visit: Yes Status: Acute (2) Shortness of breath Current Visit: Yes Status: Acute (3) CHF (congestive heart failure) Current Visit: Yes Status: Acute (4) Diabetes mellitus Current Visit: No Status: Acute Qualifiers: Diabetes mellitus type: type 2 Diabetes mellitus half-way insulin use: without moth exterminator use Diabetes mellitus complication status: without complication Qualified Code(s): E11.9 - Type 2 diabetes mellitus without complications (5) Intractable nausea and vomiting Current Visit: No Status: Acute (6) Prostate cancer metastatic to bone Current Visit: No Status: Chronic - Plan Plan: 1. Continue with thoracenteses in the morning 2. Pulmonary consultation pending 3. Pain control 4. Gentle diuresing 5. Plan and discharge wants thoracentesis completed 6. Long-term patient may need hospice care; will have Oncology reevaluate patient at discharge Discharge Plan: Home Plan to discharge in: 48 Hours - Advance Directives Does patient have a Living Will: No Does patient have a Durable POA for Healthcare: No - Code Status/Comfort Care Code Status Assessed: Yes Code Status: Full Code Critical Care: No Time Spent Managing PTS Care (In Minutes): 35
--- NOTE | 2019-07-13 10:02 | P.PN ---
Subjective Date of Service: 07/13/19 Patient still with continued pain. Feeling better overall since the thoracentesis. Continue with pain control and diuresing gently. Pulmonary Consult pending Review of Systems 10-point ROS is otherwise unremarkable Physical Examination - Vital Signs Temperature: 98.4 F Blood Pressure: 154/77 Pulse: 98 Respirations: 20 Pulse Ox (%): 92 - Physical Exam General: Alert, In no apparent distress, Oriented x3 Respiratory: Diminished, Crackles/rales Cardiovascular: Regular rate/rhythm, Normal S1 S2, Systolic murmur Gastrointestinal: Normal bowel sounds, Soft and benign, Non-distended, No tenderness Musculoskeletal: No clubbing, No swelling, No tenderness Neurological: Sensation intact, Cranial nerves 3-12 intact - Studies Medications List Reviewed: Yes Assessment & Plan - Problems (Diagnosis) (1) CHF (congestive heart failure) Current Visit: Yes Status: Acute (2) Malignant pleural effusion Current Visit: Yes Status: Acute (3) Shortness of breath Current Visit: Yes Status: Acute (4) Diabetes mellitus Current Visit: No Status: Acute Qualifiers: Diabetes mellitus type: type 2 Diabetes mellitus intermediate insulin use: without termite treater use Diabetes mellitus complication status: without complication Qualified Code(s): E11.9 - Type 2 diabetes mellitus without complications (5) HTN (hypertension) Current Visit: No Status: Acute Qualifiers: Hypertension type: essential hypertension Qualified Code(s): I10 - Essential (primary) hypertension (6) Pericardial effusion Current Visit: Yes Status: Acute - Plan Plan: 1. Radiology consultation for thoracentesis completed; most likely malignant pleural effusion 2. Pulmonary consultation for possible pleurodesis 3. Continue with gentle diuresing 4. IV antibiotics 5. Echocardiogram still pending 6. Continue with cardiac meds 7. Outpatient Hematology Oncology consultation 8. Patient may need to consider hospice care 9. Continue with anti coagulation 10. GI and DVT prophylax Discharge Plan: Home Plan to discharge in: 24 Hours - Advance Directives Does patient have a Living Will: No Does patient have a Durable POA for Healthcare: No - Code Status/Comfort Care Code Status: Full Code Critical Care: No Time Spent Managing PTS Care (In Minutes): 35
--- NOTE | 2019-07-13 10:06 | RAD REPORT ---
EXAM DESCRIPTION: RAD - Chest Single View - 07/13/2019 9:55 am CLINICAL HISTORY: Right thoracentesis FINDINGS: No pneumothorax noted status post right thoracentesis
[2019-07-13 10:12] LABS: Body Fluid WBC 258 /mm^3
[2019-07-13 11:05] LABS: Appearance CLEAR (CLEAR); Body Fluid Source PLEURAL; Color of fluid Yellow (COLORLESS)
[2019-07-13] MEDS: ACETAMINOPHEN 500 MG TAB PO PRN (11:19)
[2019-07-13] MEDS: RIVAROXABAN 15 MG TABLET PO SCH ×2 (11:20→20:52)
[2019-07-13] MEDS: INSULIN -REGULAR HUMAN 50 UNIT/0.5 ML ML SQ SCH ×3 (11:29→20:53)
--- NOTE | 2019-07-13 11:58 | P.CNS ---
Date of Consult: 07/13/19 Reason for Consult: Pulmonary embolism pleural effusion Chief Complaint: Shortness of breath History of Present Illness: Patient is 69 years of age Greenlandic-speaking only chart reviewed admitted with shortness of breath bilateral pleural effusion status post thoracentesis on the right side found to have a pulmonary embolus metastatic prostate cancer he is doing fine right now Allergies No Known Allergies Allergy (Verified 11/30/18 11:21) Home Medications: Enalapril [Vasotec*] 1 tab PO DAILY 04/30/19 Metformin HCl [Metformin ER Osmotic] 1 tab PO DAILY 04/30/19 Tamsulosin [Flomax*] 0.4 mg PO DAILY cap 05/06/19 Hydrocodone 5/APAP 325 [Grethel 5/325*] 1 tab PO SEECOM PRN 07/12/19 Linagliptin [Tradjenta] 5 mg PO DAILY 07/12/19 Morphine Sulfate [Morphine Sulfate Cr] 15 mg PO SEECOM PRN 07/12/19 Spironolactone [Aldactone*] 25 mg PO DAILY 07/12/19 fentaNYL [Fentanyl] 1 patch SEECOM 07/12/19 - Past Medical/Surgical History Diabetic: Yes -: HTN -: DMII -: Prostate CA mets to bone on radiation - Family History Brother Medical History: Hypertension, Diabetes Sister Medical History: Hypertension, Diabetes Mother Medical History: Diabetes - Social History Smoking Status: Unknown if ever smoked Alcohol use: No CD- Drugs: No Caffeine use: Yes Place of Residence: Home Review of Systems Unremarkable Physical Examination Temp Pulse Resp BP Pulse Ox 98.4 F 98 H 20 154/77 H 92 07/13/19 10:02 07/13/19 10:02 07/13/19 10:02 07/13/19 10:02 07/13/19 10:02 General: Alert, Oriented x3 Respiratory: Clear to auscultation bilaterally, Diminished Cardiovascular: No edema, Normal S1 S2 - Problems (1) Pulmonary embolism Current Visit: Yes Status: Acute Plan: Patient is 69 years of age admitted with bilateral pleural effusion and pulmonary embolism status post thoracentesis on the right side no in evidence of infection in the pleural fluid lymphocytic predominant most likely metastatic labs reviewed Dc Zosyn start on Xarelto sats are stable blood pressure mildly el evated postop chest x-ray pending possible discharge on lifelong anticoagulation also has bilateral pleural effusion and 2D echo with Doppler possible discharge tomorrow labs reviewed previous echo did show moderate tamponade normal left ventricular function will repeat pre Consul cardiology patient has significant pain medications at home will resume currently lifelong anticoagulation Qualifiers: Acute cor pulmonale presence: unspecified
[2019-07-13] MEDS ORDERED: HYDROCODONE/APAP 5/325 MG TAB PO PRN ×2 (11:59→22:23)
[2019-07-13] MEDS ORDERED: MORPHINE 15 MG IR TAB PO PRN ×2 (11:59→23:00)
--- NOTE | 2019-07-13 17:02 | RAD REPORT ---
EXAM DESCRIPTION: US - Thoracentesis w/ US Guide - 07/13/2019 9:33 am CLINICAL HISTORY: Right pleural effusion COMPARISON: July 11, 2019 cat scan TECHNIQUE: The risks, benefits alternatives to the procedure were explained to the patient and infor med consent obtained. Skiin ,subcutaneous tissues and pleura anesthetized with lidocaine. Under sonographic guidance, an 8 Honduran catheter was placed into the posterior lower right pleural sp paul. 2 liters of yellow fluid removed. 10 cc given to pathology Patient experienced no immediate complication IMPRESSION: Thoracentesis
[2019-07-13] MEDS ORDERED: MORPHINE 2 MG/ML SYR IV PRN ×2 (20:58→20:59)
[2019-07-14] MEDS: FUROSEMIDE 40 MG/4 ML VIAL IV SCH (00:57)
--- NOTE | 2019-07-14 04:06 | P.DS ---
Discharge Date: 07/14/19 Disposition: ROUTINE DISCHARGE Discharge Condition: FAIR Reason for Admission: Shortness of breath Consultations: Pulmonary Interventional Radiology - Problems (1) CHF (congestive heart failure) Status: Acute (2) Malignant pleural effusion Status: Acute (3) Shortness of breath Status: Acute (4) Diabetes mellitus Status: Acute Qualifiers: Diabetes mellitus type: type 2 Diabetes mellitus skilled nursing insulin use: without exterminator helper termite use Diabetes mellitus complication status: without complication Qualified Code(s): E11.9 - Type 2 diabetes mellitus without complications (5) HTN (hypertension) Status: Acute Qualifiers: Hypertension type: essential hypertension Qualified Code(s): I10 - Essential (primary) hypertension (6) Pericardial effusion Status: Acute Brief History of Present Illness: Patient is a 69-year-old gentleman with history of metastatic prostate cancer who came into the emergency room with severe shortness of breath. Patient was found to have bilateral pleural effusion with congestive heart failure. CT scan also revealed a distal left pulmonary embolism. Patient we started on anti coagulation with Lovenox. Patient will need to have a thoracentesis. Hospital Course: Patient had 2 L of pleural effusion removed. Patient clinically felt much better. Still having chronic pain. Patient will need to follow with Oncology as an outpatient. At this time, patient is stable for discharge with outpatient follow-up. Vital Signs/Physical Exam: Temp Pulse Resp BP Pulse Ox 98.4 F 98 H 20 154/77 H 92 07/14/19 03:57 07/14/19 03:57 07/14/19 03:57 07/14/19 03:57 07/14/19 03:57 General: Alert, In no apparent distress, Oriented x3 Laboratory Data at Discharge: WBC 3.6 K/uL (4.3-10.9) L 07/12/19 03:52 Hgb 9.8 g/dL (13.6-17.9) L 07/12/19 03:52 Hct 29.5 % (39.6-49.0) L 07/12/19 03:52 Plt Count 254 K/uL (152-406) 07/12/19 03:52 PT Cancelled 07/12/19 05:00 INR Cancelled 07/12/19 05:00 APTT 28.1 SECONDS (24.3-36.9) 07/13/19 06:06 Sodium 138 mmol/L (136-145) 07/12/19 03:52 Potassium 4.0 mmol/L (3.5-5.1) 07/12/19 03:52 BUN 12 mg/dL (7-18) 07/12/19 03:52 Creatinine 0.45 mg/dL (0.55-1.3) L 07/12/19 03:52 Glucose 160 mg/dL (74-106) H 07/12/19 03:52 Phosphorus 2.8 mg/dL (2.5-4.9) 07/12/19 03:52 Magnesium 2.0 mg/dL (1.8-2.4) 07/12/19 03:52 Total Bilirubin 0.5 mg/dL (0.2-1.0) 07/12/19 03:52 AST 47 U/L (15-37) H 07/12/19 03:52 ALT 15 U/L (12-78) 07/12/19 03:52 Alkaline Phosphatase 267 U/L (45-117) H 07/12/19 03:52 Home Medications: Enalapril [Vasotec*] 1 tab PO DAILY 04/30/19 Metformin HCl [Metformin ER Osmotic] 1 tab PO DAILY 04/30/19 Tamsulosin [Flomax*] 0.4 mg PO DAILY cap 05/06/19 Hydrocodone 5/APAP 325 [Boykins 5/325*] 1 tab PO SEECOM PRN 07/12/19 Linagliptin [Tradjenta] 5 mg PO DAILY 07/12/19 Morphine Sulfate [Morphine Sulfate Cr] 15 mg PO SEECOM PRN 07/12/19 Spironolactone [Aldactone*] 25 mg PO DAILY 07/12/19 fentaNYL [Fentanyl] 1 patch SEECOM 07/12/19 Furosemide [Lasix] 20 mg PO DAILY #30 tablet 07/14/19 Morphine Ir [MSIR (Morphine Sulfate IR)*] 15 mg PO Q6H PRN tab 07/14/19 Potassium Chloride [K-Dur] 10 meq PO DAILY #30 tab.er.prt 07/14/19 Rivaroxaban [Xarelto] 20 mg PO DAILY #30 tablet 07/14/19 New Medications: Potassium Chloride [K-Dur] 10 meq PO DAILY #30 tab.er.prt Furosemide [Lasix] 20 mg PO DAILY #30 tablet Rivaroxaban [Xarelto] 20 mg PO DAILY #30 tablet Patient Discharge Instructions: OK TO DC IV AND DC HOME. FOLLOW-UP WITH PRIMARY CARE PROVIDER IN 1-2 WEEKS. FOLLOW-UP WITH PULMONARY & ONCOLOGY IN 1-2 WEEKS. RETURN TO THE ER IF symptoms worsen. CALL or TEXT DR. LAGUNAS AT [phone] IF ANY QUESTIONS REGARDING HOSPITAL STAY. PLEASE CALL THE FLOOR AT [phone] IF ANY MEDICATION OR NURSING QUESTIONS. Diet: AHA Activity: Fall precautions Followup: Galo Mcclendon MD [ACTIVE - CAN ADMIT] - Prasanna Grullon MD [ACTIVE - CAN ADMIT] - Time spent managing pt's care (in minutes): 20
[2019-07-14] MEDS ORDERED: FENTANYL 25 MCG/PATCH TD SCH (06:00)
[2019-07-14] MEDS ORDERED: FENTANYL TD SCH (06:00)
[2019-07-14] MEDS: INSULIN -REGULAR HUMAN 50 UNIT/0.5 ML ML SQ SCH ×2 (07:30→11:30)
[2019-07-14] MEDS ORDERED: HOME MED 1 EA UNK (Linagliptin [Tradjenta] 5 MG) PO SCH (09:00)
[2019-07-14] MEDS ORDERED: ENALAPRIL 10 MG TAB PO SCH (09:00)
[2019-07-14] MEDS ORDERED: TAMSULOSIN 0.4 MG SR CAP PO SCH (09:00)
[2019-07-14] MEDS ORDERED: FUROSEMIDE 20 MG/ 2ML VIAL IV SCH (09:00)
[2019-07-14] MEDS ORDERED: METFORMIN ER 500 MG TAB PO SCH (09:00)
[2019-07-14] MEDS ORDERED: SPIRONOLACTONE 25 MG TABLET PO SCH (09:00)
[2019-07-14] MEDS: RIVAROXABAN 15 MG TABLET PO SCH (09:15)
[2019-07-14] MEDS: ONDANSETRON 4 MG/2 ML VIAL IV PRN (09:20)
--- NOTE | 2019-07-14 09:58 | CON ---
Date of Consultation: 07/13/2019 Reason For Consultation: Pericardial effusion and pulmonary embolus. History Of Present Illness: Mr. Bernal is a 69-year-old Latin-Nepalese male who has a history of me tastatic prostate cancer with bone metastasis. Has a history of diabetes, hypertension, as well as b enign prostatic hypertrophy. He had a moderate pericardial effusion on 05/11/2019. The patient came in with shortness of breath, edema, was found to have a pulmonary embolus. He had a D-dimer of 20,4 97. He denied chest pain, denied nausea or vomiting. He denied diaphoresis. He denied palpitations or syncope. Past Medical History: As stated above. Allergies: NONE. Review of Systems: Negative. Social History: Negative. Family History: Noncontributory. Medications: At home include metformin, lisinopril, Tradjenta, Aldactone, and Flomax. His present r egimen here includes Xarelto 15 b.i.d. He is also on Lasix, Zosyn, enalapril, insulin, metformin, Arias max, and Aldactone. Physical Examination: General: Mr. Bernal was asymptomatic when I saw him, he was feeling better. He had O2 saturation o f 93% on room air. HEENT: Negative. Neck: Supple without any lymphadenopathy, JVD, or thyromegaly. Chest: Clear to auscultation and percussion. Cardiac: Did reveal tachycardia without any murmurs, gallops, or rubs. Abdomen: Benign. Extremities: Revealed no clubbing, cyanosis, or edema. Diagnostic Data: His hemoglobin of 9.8. His D-dimer was 20,497. Venous Doppler was negative. CT a ngiogram revealed pleural effusion bilaterally, CHF, pulmonary embolus, and bone metastatic disease t hat is extensive. Echocardiogram which was done yesterday revealed a hyperdynamic ventricle with nor mal ejection fraction. His only had trace pericardial effusion, much improved since April. His gluc ose was 150. BNP was 465. Alkaline phosphatase was 267. Impression And Plan: 1.Pulmonary embolus, on Xarelto. 2.Acute diastolic congestive heart failure with a hyperdynamic left ventricle. He is asymptomatic, has improved on Lasix. He is on CHRISTIAN inhibitor. If blood pressure tolerates a low dose, beta-maría may be a good idea. 3.Hypertension, well controlled. 4.Diabetes, well controlled. 5.Metastatic prostate cancer. 6.Pleural effusion, status post right thoracentesis, results are pending. 7.I think Mr. Bernal is overall doing fairly well. His pericardial effusion is much smaller than i t was. He has adequate O2 saturation on room air. He has no edema. I am comfortable with him going home whenever it is okay with Dr. Mcclendon. I will be happy to see him in the office if he goes simón e in the next 2 to 4 weeks. MISSY/JOHANN Voice ID: [id number] Report ID: [id number]
[2019-07-14 12:10] VITALS: BP 150/77; TEMP 98.4
[2019-07-14 13:02] VITALS: O2SAT 92
--- NOTE | 2019-07-16 07:41 | ECHO ---
HEIGHT: 5 ft 5 in WEIGHT: 124 lb 9 oz DATE OF STUDY: 07/13/[address]: Galo Mcclendon MD 2-DIMENSIONAL: YES M.MODE: YES DOPPLER: YES COLOR FLOW: YES TDS: PORTABLE: DEFINITY: BUBBLE STUDY: DIAGNOSIS: PULMONARY EMBOLISM, PLEURAL EFFUSION CARDIAC HISTORY: CATHERIZATION: NO SURGERY: NO PROSTHETIC VALVE: NO PACEMAKER: NO MEASUREMENTS (cm) DIASTOLIC (NORMALS) SYSTOLIC (NORMALS) IVSd 0.9 (0.6-1.2) LA Diam 2.6 (1.9-4.0) LVEF 70% LVIDd 3.7 (3.5-5.7) LVIDs 2.3 (2.0-3.5) %FS 39% LVPWd 1.0 (0.6-1.2) Ao Diam 2.8 (2.0-3.7) 2 DIMENSIONAL ASSESSMENT: RIGHT ATRIUM: NORMAL LEFT ATRIUM: NORMAL RIGHT VENTRICLE: NORMAL LEFT VENTRICLE: NORMAL TRICUSPID VALVE: NORMAL MITRAL VALVE: NORMAL PULMONIC VALVE: NORMAL AORTIC VALVE: NORMAL PERICARDIAL EFFUSION: TRACE AORTIC ROOT: NORMAL LEFT VENTRICULAR WALL MOTION: HYPERDYNAMIC LEFT VENTRICLE DOPPLER/COLOR FLOW: NORMAL COMMENTS: NORMAL EJECTION FRACTION. HYPERDYNAMIC LEFT VENTRICLE. TRACE PERICARDIAL EFFUSION. DECREASED LEFT VENTRICULAR COMPLIANCE. NO PULMONARY HYPERTENSION. NORMAL RIGHT VENTRICULAR SIZE. TECHNOLOGIST: SANDRA RIVERA
== END 2019-07-14 13:21 | disposition home or self-care (01) | DRG 291 ==
LOC: ER 14:48 → ERHOLD 22:36 → 2ND 23:29
PROVIDERS: ADMIT Hospitalist; ATTEND Hospitalist
PROC: 0W993ZZ Drainage of Right Pleural Cavity, Percutaneous Approach (ICD-10-PCS; principal; 2019-07-13)
DX: I11.0 Hypertensive heart disease with heart failure (principal); I26.99 Other pulmonary embolism without acute cor pulmonale; I50.31 Acute diastolic (congestive) heart failure; J91.0 Malignant pleural effusion; C79.51 Secondary malignant neoplasm of bone; I31.3 Pericardial effusion (noninflammatory); C61 Malignant neoplasm of prostate; E11.9 Type 2 diabetes mellitus without complications; Z79.899 Other long term (current) drug therapy; Z79.891 Long term (current) use of opiate analgesic; Z87.891 Personal history of nicotine dependence; Z79.84 Long term (current) use of oral hypoglycemic drugs; Z79.01 Long term (current) use of anticoagulants
CPT/HCPCS: 32555; 36415; 36591; 71045; 71275; 80048; 80053; 82947; 83735; 83880; 84100; 84153; 85025; 85379; 85610; 85730; 87040; 87070; 87077; 87186; 88108; 88305; 89050; 93306; 93971; 96365; 97116; 97161; 99283; 99285; J1644; J1940; J2270; J2405; J2543; J7030; Q9967

== ENCOUNTER 2019-08-01 20:47 | Inpatient (IN) | payer OTHER ==
--- OUTSIDE RECORDS SUMMARY | 2019-08-01 20:49 | XMS REPORT | Continuity of Care Document ---
:1950 Author Organization [facility] t Address [address] [place] [address] Care Team Providers Name Role Phone Sergio Morgan DO Primary Care Physician Lacy Caputo MDmi Attending Clinician Bi GRAYSON Attending Clinician Payers Payer Name Policy Type Policy Number Effective Expiration Source Date Date [employer] HMO xxxxxxxx [facility] [employer] [facility] Problems This patient has no known problems. Allergies, Adverse Reactions, Alerts This patient has no known allergies or adverse reactions. Family History Family Member Diagnosis Comments Start Date Stop Date Source Natural mother Diabetes [place] [facility] Social History Social Habit Start Date Stop Date Quantity Comments Source Sex Assigned [facility] [place] [facility] Cigarettes smoked 2018-01-18 2018-01-18 [facility] current (pack per 00:00:00 00:00:00 day) - Reported Cigarette 2018-01-18 2018-01-18 [place] [facility] ist pack-years 00:00:00 00:00:00 History of tobacco 1974-02-21 1979-02-21 Current smoker [place] [facility] use 00:00:00 00:00:00 Smoking Status Start Date Stop Date Source Former smoker 2018-01-18 00:00:00 2018-01-18 00:00:00 [facility] Medications This patient has no known medications. Procedures Procedure Date / Time Performing Clinician Source Performed NM RADIOTHERAPY IV 2019-07-27 14:05:00 Draksharam, [facility] NM RADIOTHERAPY IV 2019-06-19 14:00:00 [facility] NM RADIOTHERAPY IV 2019-05-17 14:50:00 [facility] NM RADIOTHERAPY IV 2019-04-02 16:16:00 [facility] NM RADIOTHERAPY IV 2019-03-02 15:33:00 [facility] NM RADIOTHERAPY IV 2019-01-25 15:59:00 [facility] Plan of Care Planned Activity Planned Date Details Comments Source Future Scheduled 2019-09-22 INFLUENZA VACCINE [place] [facility] 00:00:00 [code = INFLUENZA VACCINE] Future Scheduled 2017 65+ PNEUMOCOCCAL [place] [facility] 00:00:00 VACCINE (1 of 2 - PCV13) [code = 65+ PNEUMOCOCCAL VACCINE (1 of 2 - PCV13)] Future Scheduled 2002 COLONOSCOPY SCREENING [place] [facility] 00:00:00 [code = COLONOSCOPY SCREENING] Future Scheduled 2002 SHINGLES VACCINES (#1) [place] [facility] 00:00:00 [code = SHINGLES VACCINES (#1)] Results Test Description Test Time Test Comments Results Result Sourc e Comments RADIO'TX, IV Reason for FINAL REPORT ADMINISTRATION 5 Exam:->C61, PATIENT ID: [id number] PROCEDURE: RADIONUCLIDE THERAPY - RADIUM CHLORIDE CPT CODE: [id number] INDICATION: Prostate Cancer with bone metastasis PROTOCOL: 94.0 microcuries of Ra-223 chloride was injected intravenously by the nuclear medicine physician. Post-treatment radiation precautions were discussed with the patient, and written instructions were provided. IMPRESSION: Alpha particle, nonsealed source, radiotherapy for prostate cancer metastatic to bone. Number 6 of 6 planned treatments. Signed: Mickie Paiz MDReport Verified Date/Time: 07/27/2019 15:52:07 Reading Location: [address] Reading Room radiotherapy iv Interface, External [facility] administration 5 Ris In - 07/27/2019 - Medical 15:52:00 3:54 PM [facility] REPORT PROCEDURE: RADIONUCLIDE THERAPY - RADIUM CHLORIDE CPT CODE: [id number] INDICATION: Prostate Cancer with bone metastasis PROTOCOL: 94.0 microcuries of Ra-223 chloride was injected intravenously by the nuclear medicine physician. Post-treatment radiation precautions were discussed with the patient, and written instructions were provided. IMPRESSION: Alpha particle, nonsealed source, radiotherapy for prostate cancer metastatic to bone. Number 6 of 6 planned treatments. Signed: Mickie Paiz Verified Date/Time: 07/27/2019 15:52:07 Reading Location: [address] Reading Room O'TX, IV 2019-05-24 Reason for FINAL REPORT ADMINISTRATION 8 Exam:->c61, PATIENT ID: [id number] PROCEDURE: RADIONUCLIDE THERAPY - RADIUM CHLORIDE CPT CODE: [id number] INDICATION: Prostate Cancer with bone metastasis PROTOCOL: 88.4 mCi of Ra-223 chloride was injected intravenously by the nuclear medicine physician. Post-treatment radiation precautions were discussed with the patient, and written instructions were provided. IMPRESSION: Alpha particle, nonsealed source, radiotherapy for prostate cancer metastatic to bone. Number 5 of 6 planned treatments. Signed: Mickie Paiz Verified Date/Time: 06/19/2019 16:04:25 O'TX, IV 2019-04-23 Reason for FINAL REPORT ADMINISTRATION 6 Exam:->bone PATIENT ID: [id number] metastasis, [id number] prostate PROCEDURE: cancer RADIONUCLIDE THERAPY - RADIUM CHLORIDE CPT CODE: [id number] INDICATION: Prostate Cancer with bone metastasis PROTOCOL: 0.082 mCi of Ra-223 chloride was injected intravenously by the nuclear medicine physician. Post-treatment radiation precautions have been discussed with the patient, and written instructions have been provided. IMPRESSION: Alpha particle, nonsealed source, radiotherapy for prostate cancer metastatic to bone. Number 4 of 6 planned treatments. Signed: Yg Sage Verified Date/Time: 05/17/2019 15:40:48 Reading Location: [address] [employer] [facility] Reading Room O'TX, IV 2019-03-24 Reason for FINAL REPORT ADMINISTRATION 2 Exam:->prosta PATIENT ID: [id number] te cancer [id number] PROCEDURE: RADIONUCLIDE THERAPY - RADIUM CHLORIDE CPT CODE: [id number] INDICATION: Prostate Cancer with bone metastasis PROTOCOL: 0.086 mCi of Ra-223 chloride was injected intravenously by the nuclear medicine physician. Post-treatment radiation precautions were discussed with the patient, and written instructions were provided. IMPRESSION: Alpha particle, nonsealed source, radiotherapy for prostate cancer metastatic to bone. Number two of 6 planned treatments. Signed: Mickie Paiz Verified Date/Time: 04/04/2019 11:55:56 Reading Location: [address] [employer] [facility] Reading Room O'TX, IV 2019-02-21 Reason for FINAL REPORT ADMINISTRATION 0 Exam:->prosta PATIENT ID: [id number] te cancer [id number] PROCEDURE: RADIONUCLIDE THERAPY - RADIUM CHLORIDE CPT CODE: [id number] INDICATION: Prostate Cancer with bone metastasis PROTOCOL: 0.082 mCi of Ra-223 chloride was injected intravenously by the nuclear medicine physician. Post-treatment radiation precautions have been discussed with the patient and his daughter and written instructions have been provided. IMPRESSION: Alpha particle, nonsealed source, radiotherapy for prostate cancer metastatic to bone. Number 2 of 6 planned treatments. Signed: Yg Sage Verified Date/Time: 03/02/2019 16:37:55 Reading Location: [address] [employer] Med Reading Room O'TX, IV Reason for FINAL REPORT ADMINISTRATION 5 Exam:->C61.C7 PATIENT ID: [id number] PROCEDURE: RADIONUCLIDE THERAPY - RADIUM CHLORIDE CPT CODE: [id number] INDICATION: Prostate Cancer with bone metastasis PROTOCOL: 0.088 mCi of Ra-223 chloride was injected intravenously by the nuclear medicine physician. Post-treatment radiation precautions were discussed with the patient and his daughter, and written instructions were provided. IMPRESSION: Alpha particle, nonsealed source, radiotherapy for prostate cancer metastatic to bone. Number 1 of 6 planned treatments. Signed: Yg Sage MDReport Verified Date/Time: 01/25/2019 18:41:49 Reading Location: [address] Reading Room
--- OUTSIDE RECORDS SUMMARY | 2019-08-01 20:49 | XMS REPORT | Clinical Summary ---
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
--- OUTSIDE RECORDS SUMMARY | 2019-08-01 20:49 | XMS REPORT | Clinical Summary ---
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) 06/19/2019 Hospital Encounter Radiology Harshal, Prostate cancer (HCC); Geovanna Randall Bone metastas is (HCC) 06/15/2019 Outside Orders Central Scheduling aksharam, Prostat e cancer (HCC) (Primary Dx); Geovanna Randall Bone metastas is (HCC) 05/17/2019 Hospital Encounter Radiology Harshal, Prostate cancer (HCC); Geovanna Randall Bone metastas is (HCC) 05/16/2019 Outside Orders Radiology Harshal, Prostate canc er (HCC) (Primary Dx); Geovanna Randall Bone metastas is (HCC) 04/02/2019 Hospital Encounter Radiology Bi, Prostate cancer (HCC) MD Emmett 03/30/2019 Outside Orders Radiology Opalam, Prostate canc er (HCC) Geovanna Randall (Primary Dx) 03/02/2019 Hospital Encounter Radiology Harshal, Prostate cancer (HCC); Geovanna Tonia, Bone metastas is (HCC) 02/24/2019 Outside Orders Central Scheduling Harshal, Prostat e cancer (HCC) (Primary Dx); Geovanna Randall Bone metastas is (HCC) 01/25/2019 Hospital Encounter Radiology Harshal, Bone meta stasis (HCC); Geovanna Randall Prostate canc er (HCC) 01/17/2019 Outside Orders Central Scheduling Harshal Bone me tastasis (HCC) (Primary Dx); Geovanna Randall Prostate canc er (HCC) after 07/31/2018 Social History Tobacco Use Types Packs/Day Years [...] Associated Comments Diagnosis NM RADIOTHERAPY IV Routine 07/27/2019 2:05 Malignant neoplasm Results for this ADMINISTRATION PM CDT of prostate (HCC ) procedure are in Secondary the results malignant neoplasm section. 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 NM RADIOTHERAPY IV Routine 03/02/2019 3:33 Prostate cancer Re sults for this ADMINISTRATION PM SENIOR TECHNICAL PROJECT MANAGER (HCC) procedure are in Bone metastasis the results (HCC) section. NM RADIOTHERAPY IV Routine 01/25/2019 3:59 Bone metastasis Re sults for this ADMINISTRATION PM SENIOR TECHNICAL PROJECT MANAGER (HCC) procedure are in Prostate cancer the results (HCC) section. after 07/31/2018 Results NM radiotherapy iv administration (07/27/2019 2:05 PM CDT)Only the most recent of6 resultswithin the time period is included. Specimen Narrative Performed At [facility]AL [facility] PROCEDURE:RADIONUCLIDE THERAPY - RADIUM CHLORIDE CPT CODE:[id number] INDICATION:Prostate Cancer w ith bone metastasis PROTOCOL:94.0 microcuries of Ra-223 chloride was injected intravenously by the nuclear medicine ph ysician. Post-treatment radiation precautions were discussed wit h the patient, and written instructions were provided. IMPRESSION: Alpha particle, nons ealed source, radiotherapy for prostate cancer metastatic to bone. Numb er 6 of 6 planned treatments. Signed: Mickie Paiz MD Report Verified Date/Time:07/27/2019 15:52:07 Reading Location: [address] Reading Room Procedure Note Interface, External Ris In - 07/27/2019 3:54 PM CDT FINAL REPORT PROCEDURE: RADIONUCLIDE THERAPY - RAD IUM CHLORIDE CPT CODE: [id number] INDICATION: Prostate Cancer with crist[place] ne metastasis PROTOCOL: 94.0 microcuries of Ra-22 3 chloride was injected intravenously by the nuclear medicine ph ysician. Post-treatment radiation precautions were discussed wit h the patient, and written instructions were provided. IMPRESSION: Alpha particle, nonseale d source, radiotherapy for prostate cancer metastatic to bone. Numb er 6 of 6 planned treatments. Signed: Mickie Paiz MD Report Verified Date/Time: 07/27/2019 1 5:52:07 Reading Location: [address] Reading Room Performing Organization Address City/State/Zipcode Phone Number GE RIS after 07/31/2018 Insurance Payer Benefit Plan / Group Subscriber ID Type Phone A ddress [employer] xxxxxxxx Maps Contracted
[2019-08-01 21:28] LABS: Absolute Lymphocytes (CBC) 0.4 K/uL (0.7-4.9); Basophils % 0.2 % (0-1.3); RBC Red Blood Cell Count 3.56 M/uL (4.33-5.43)
[2019-08-01 21:29] LABS: Protime INR 1.08
[2019-08-01 21:45] LABS: ALT/SGPT 12 U/L (12-78); AST/SGOT 35 U/L (15-37); Albumin 2.6 g/dL (3.4-5.0); Alkaline Phosphatase 177 U/L (45-117); BUN Blood Urea Nitrogen 24 mg/dL (7-18); Bicarbonate 24 mmol/L (21-32); Bilirubin Direct 0.3 mg/dL (0-0.2); Bilirubin Total 0.6 mg/dL (0.2-1.0); Glucose Level 116 mg/dL (74-106); NT PRO-BNP 280 pg/mL (<125); Potassium 4.1 mmol/L (3.5-5.1); Protein, Total 6.7 g/dL (6.4-8.2); Sodium Level 143 mmol/L (136-145); Troponin (Emerg Dept Use Only) < 0.02 ng/mL (0.0-0.045)
[2019-08-01 21:46] LABS: Anisocytosis 1+; Blood Morphology Comment NOTED (NOT SEEN); Platelet Estimate ADEQ; Urine White Blood Cell Casts OK
[2019-08-01] MEDS ORDERED: ACETAMINOPHEN 500 MG TAB ONE (23:08)
--- NOTE | 2019-08-01 23:30 | ER ---
Nurse's Notes [facility] Name: Shantanu Bernal Age: 69 yrs Sex: Male : 1950 Arrival Date: 08/01/2019 Time: 20:50 Bed 5 Private MD: Diagnosis: Pneumonia;Acute on chronic combined systolic (congestive) and diastolic (congestive) heart failure Presentation: 07/31 20:57 Chief complaint: Patient's son or daughter states: SOB at rest since last night with ca1 chest pains. Pt has prostate cancer with mets to the bones. Had last radiation therapy on Tuesday. Chemotherapy was 6 months ago. Pt denies history of CHF, COPD. Pt denies cough and fever. Coronavirus screen: Proceed with normal triage. Patient denies a cough. Patient reports shortness of breath or difficulty breathing. Patient denies measured and/or subjective temperature greater than 100.4F prior to today's visit. Patient denies travel on a cruise ship or to a country the [facility] currently lists as an affected area. Patient denies contact with known and/or suspected case of COVID-19. Ebola Screen: Patient negative for fever greater than or equal to 101.5 degrees Fahrenheit, and additional compatible Ebola Virus Disease symptoms Patient denies exposure to infectious person. Patient denies travel to an Ebola-affected area in the 21 days before illness onset. No symptoms or risks identified at this time. Initial Sepsis Screen:. Risk Assessment: Do you want to hurt yourself or someone else? Patient reports no desire to harm self or others. Onset of symptoms was August 01, 2019. 20:57 Method Of Arrival: Wheelchair ca1 20:57 Acuity: ERICA 3 ca1 21:30 Initial Sepsis Screen: Does the patient meet any 2 criteria? RR > 20 per min. HR > 90 jd3 bpm. Yes Does the patient have a suspected source of infection? No. Patient's initial sepsis screen is negative. Triage Assessment: 21:30 Respiratory: Onset: The symptoms/episode began/occurred yesterday, the patient has mild jd3 shortness of breath. Historical: - Allergies: 21:05 No Known Allergies; ca1 - Home Meds: 21:05 metformin 1,000 mg Oral tr24 twice a day [Active]; tamsulosin 0.4 mg Oral cp24 1 cap ca1 once daily [Active]; spironolactone 25 mg Oral tab [Active]; enalapril maleate 10 mg Oral tab once daily [Active]; hydrocodone-acetaminophen 5-325 mg Oral tab [Active]; morphine 15 mg Oral tab [Active]; Tradjenta 5 mg oral tab 1 tab once daily [Active]; Fentanyl Patch Topical [Active]; Ondansetron Oral [Active]; prednisone 10 mg Oral tab [Active]; - PMHx: 21:05 Diabetes - NIDDM; Hypertension; Prostate Cancer with metastasis to the bone; ca1 - PSHx: 21:05 None; ca1 - Immunization history:: Adult Immunizations up to date. - Social history:: Smoking status: Patient/guardian denies using tobacco, the patient reports quitting approximately 40 years ago. Screenin:01 Abuse screen: Denies threats or abuse. Nutritional screening: No deficits noted. jd3 Tuberculosis screening: No symptoms or risk factors identified. Fall Risk Ambulatory Aid- Crutches/Cane/Walker (15 pts). Gait- Weak (10 pts.). Mental Status- Oriented to own ability (0 pts). Total Nunez Fall Scale indicates Low Risk Score (25-44 pts). Fall prevention measures have been instituted. Side Rails Up X 2 Placed close to Nursing Station Frequent Obs/Assesments occuring Family Present and informed to notify staff if they need to leave bedside. Assessment: 20:59 General: Appears in no apparent distress. uncomfortable, Behavior is calm, cooperative, jd3 appropriate for age. Pain: Complains of pain in chest Quality of pain is described as pressure, sharp. Neuro: Level of Consciousness is awake, alert, obeys commands, Oriented to person, place, time, situation. Cardiovascular: Reports chest pain, Heart tones present Capillary refill < 3 seconds Patient's skin is warm and dry. Rhythm is sinus tachycardia. Respiratory: Reports shortness of breath at rest Airway is patent Respiratory effort is even, unlabored, Respiratory pattern is regular, symmetrical, Breath sounds are clear bilaterally. Denies cough. GI: No signs and/or symptoms were reported involving the gastrointestinal system. : No signs and/or symptoms were reported regarding the genitourinary system. EENT: No signs and/or symptoms were reported regarding the EENT system. Derm: Skin is intact, Skin is dry, Skin is normal, Skin temperature is warm. Musculoskeletal: Circulation, motion, and sensation intact. Range of motion: intact in all extremities. 21:32 Reassessment: Patient appears in no apparent distress at this time. Patient and/or jd3 family updated on plan of care and expected duration. Pain level reassessed. Patient is alert, oriented x 3, equal unlabored respirations, skin warm/dry/pink. pt reports some relief after placement of a nasal canula. 22:38 Reassessment: Patient appears in no apparent distress at this time. Patient and/or jd3 family updated on plan of care and expected duration. Pain level reassessed. Patient is alert, oriented x 3, equal unlabored respirations, skin warm/dry/pink. Patient states feeling better. 23:47 Reassessment: Sarah with [facility] speaking with Mitchell at this time. 08/01 00:06 Reassessment: Patient appears in no apparent distress at this time. Patient and/or jd3 family updated on plan of care and expected duration. Pain level reassessed. Patient is alert, oriented x 3, equal unlabored respirations, skin warm/dry/pink. awaiting hospitalization. 01:08 Reassessment: Patient appears in no apparent distress at this time. Patient and/or jd3 family updated on plan of care and expected duration. Pain level reassessed. Patient is alert, oriented x 3, equal unlabored respirations, skin warm/dry/pink. awaiting admission. 01:46 Reassessment: Patient and/or family updated on plan of care and expected duration. Pain jd3 level reassessed. Patient is alert, oriented x 3, equal unlabored respirations, skin warm/dry/pink. pt admitted to ER HOLD status, charting continued in [facility]. 08:37 Reassessment: report given to BART Nichols. em Vital Signs: 07/31 20:57 BP 170 / 76; Pulse 105; Resp 22; Temp 98.4(O); Pulse Ox 90% on R/A; Weight 54.88 kg ca1 (R); Height 5 ft. 5 in. (165.10 cm) (R); Pain 9/10; 21:31 BP 154 / 68; Pulse 99; Resp 20 S; Pulse Ox 97% on 2 lpm NC; jd3 22:38 BP 152 / 75; Pulse 99; Resp 20 S; Pulse Ox 96% on 2 lpm NC; jd3 08/01 00:07 BP 156 / 69; Pulse 101; Resp 20 S; Pulse Ox 95% on 2 lpm NC; jd3 01:09 BP 146 / 80; Pulse 105; Resp 21 S; Pulse Ox 96% on 2 lpm NC; jd3 08:21 BP 125 / 62; Pulse 122; Resp 20; Temp 98.6(TE); Pulse Ox 98% on 2 lpm NC; 5 07/31 20:57 Body Mass Index 20.14 (54.88 kg, 165.10 cm) ca1 ED Course: 07/31 20:50 Patient arrived in ED. cf2 20:51 Mitchell Ashraf PA is PHCP. [facility] 20:51 Samson Goncalves MD is Attending Physician. [facility] 20:51 Albino Herron RN is Primary Nurse. jd3 21:00 Patient has correct armband on for positive identification. Placed in gown. Bed in low jd3 position. Call light in reach. Side rails up X 1. Adult w/ patient. machine tool operator on. Pulse ox on. NIBP on. 21:01 Triage completed. ca1 21:05 Arm band placed on right wrist. ca1 21:10 EKG done, by ED staff, reviewed by Mitchell CHOI. jd3 21:18 Initial lab(s) drawn, by sc, sent to lab. Inserted saline lock: 20 gauge in right jd3 forearm, using aseptic technique. Blood collected. 21:39 XRAY Chest (1 view) In Process Unspecified. EDMS 22:19 CT Chest For PE Angio In Process Unspecified. EDMS 23:29 Himanshu Lebron is Hospitalizing Provider. [facility] 08/01 01:46 No provider procedures requiring assistance completed. Patient admitted, IV remains in jd3 place. Administered Medications: 07/31 23:06 Drug: Tylenol 1000 mg Route: PO; jd3 08/01 00:00 Follow up: Response: No adverse reaction jd3 00:05 Drug: LevaQUIN 750 mg Volume: 150 ml; Route: IVPB; Infused Over: 90 mins; Site: right jd3 forearm; 01:30 Follow up: Response: No adverse reaction; IV Status: Completed infusion; IV Intake: jd3 150ml 01:45 Drug: vancoMYCIN 1 grams Route: IVPB; Infused Over: 2 hrs; Site: right forearm; jd3 01:45 Follow up: Response: No adverse reaction; IV Status: Infusion continued upon admission jd3 Intake: 01:30 IV: 150ml; Total: 150ml. jd3 Outcome: 07/31 23:30 Decision to Hospitalize by Provider. [place] 08/01 01:46 Admitted to ER Hold. Please see [facility] for further documentation. jd3 Condition: stable Instructed on the need for admit, Demonstrated understanding of instructions. 08:50 Patient left the ED. em Signatures: Dispatcher [employer] EDRomeo Clemons, BART RN Mitchell Jack PA PA jmm Munoz, Edgar, RN RN Lety Morin [facility] Albino Herron RN RN jd3 Acob, Cheryl, RN RN [facility] Claudia Ulloa 2 Corrections: (The following items were deleted from the chart) 07/31 21:37 21:32 Reassessment: Patient appears in no apparent distress at this time. No changes jd3 from previously documented assessment. Patient and/or family updated on plan of care and expected duration. Pain level reassessed. Patient is alert, oriented x 3, equal unlabored respirations, skin warm/dry/pink. jd3
--- NOTE | 2019-08-01 23:31 | EDPHYS ---
Physician Documentation [facility] Name: Shantanu Bernal Age: 69 yrs Sex: Male : 1950 Arrival Date: 08/01/2019 Time: 20:50 Bed 5 Private MD: ED Physician Samson Goncalves HPI: 07/31 20:59 This 69 yrs old Male presents to ER via Wheelchair with complaints of jmm Breathing Difficulty, Chest Pain. 20:59 The patient has shortness of breath at rest. Onset: The symptoms/episode began/occurred jmm gradually, 1 day(s) ago. Duration: The symptoms are continuous, and are steadily getting worse. The patient's shortness of breath is aggravated by exertion, light activity. Associated signs and symptoms: Pertinent positives: chest pain. The patient has experienced similar episodes in the past. Historical: - Allergies: 21:05 No Known Allergies; ca1 - Home Meds: 21:05 metformin 1,000 mg Oral tr24 twice a day [Active]; tamsulosin 0.4 mg Oral cp24 1 cap ca1 once daily [Active]; spironolactone 25 mg Oral tab [Active]; enalapril maleate 10 mg Oral tab once daily [Active]; hydrocodone-acetaminophen 5-325 mg Oral tab [Active]; morphine 15 mg Oral tab [Active]; Tradjenta 5 mg oral tab 1 tab once daily [Active]; Fentanyl Patch Topical [Active]; Ondansetron Oral [Active]; prednisone 10 mg Oral tab [Active]; - PMHx: 21:05 Diabetes - NIDDM; Hypertension; Prostate Cancer with metastasis to the bone; ca1 - PSHx: 21:05 None; ca1 - Immunization history:: Adult Immunizations up to date. - Social history:: Smoking status: Patient/guardian denies using tobacco, the patient reports quitting approximately 40 years ago. ROS: 20:59 Constitutional: Negative for fever, chills, and weight loss. jmm 20:59 Cardiovascular: Positive for chest pain. 20:59 Respiratory: Positive for shortness of breath. 20:59 Abdomen/GI: Negative for abdominal pain. 20:59 All other systems are negative. Exam: 20:59 Constitutional: This is a well developed, well nourished patient who is awake, alert, jmm and in no acute distress. Head/Face: atraumatic. Eyes: EOMI, no conjunctival erythema appreciated ENT: Moist Mucus Membranes Neck: Trachea midline, Supple Chest/axilla: Normal chest wall appearance and motion. Cardiovascular: Regular rate and rhythm. No edema appreciated Respiratory: Normal respirations, no respiratory distress appreciated Abdomen/GI: Non distended, soft Back: Normal ROM Skin: General appearance color normal MS/ Extremity: Moves all extremities, no obvious deformities appreciated, no edema noted to the lower extremities Neuro: Awake and alert, normal gait Psych: Behavior is normal, Mood is normal, Patient is cooperative and pleasant Vital Signs: 20:57 BP 170 / 76; Pulse 105; Resp 22; Temp 98.4(O); Pulse Ox 90% on R/A; Weight 54.88 kg ca1 (R); Height 5 ft. 5 in. (165.10 cm) (R); Pain 9/10; 21:31 BP 154 / 68; Pulse 99; Resp 20 S; Pulse Ox 97% on 2 lpm NC; jd3 22:38 BP 152 / 75; Pulse 99; Resp 20 S; Pulse Ox 96% on 2 lpm NC; jd3 06/11 00:07 BP 156 / 69; Pulse 101; Resp 20 S; Pulse Ox 95% on 2 lpm NC; jd3 01:09 BP 146 / 80; Pulse 105; Resp 21 S; Pulse Ox 96% on 2 lpm NC; jd3 08:21 BP 125 / 62; Pulse 122; Resp 20; Temp 98.6(TE); Pulse Ox 98% on 2 lpm NC; 5 07/31 20:57 Body Mass Index 20.14 (54.88 kg, 165.10 cm) ca1 MDM: 07/31 20:59 Patient medically screened. [facility] 23:29 Data reviewed: vital signs, nurses notes. Counseling: I had a detailed discussion with [facility] the patient and/or guardian regarding: the historical points, exam findings, and any diagnostic results supporting the discharge/admit diagnosis, lab results, radiology results, the need for further work-up and treatment in the hospital. ED course: I discussed the patient with Dr. Lebron whom accepted admission. . 07/31 20:59 Order name: Basic Metabolic Panel; Complete Time: 21:46 [facility] 07/31 20:59 Order name: CBC with Diff; Complete Time: 21:57 [facility] 07/31 20:59 Order name: LFT's; Complete Time: 21:46 [facility] 07/31 20:59 Order name: Magnesium; Complete Time: 21:46 [facility] 07/31 20:59 Order name: NT PRO-BNP; Complete Time: 21:46 [facility] 07/31 20:59 Order name: PT-INR; Complete Time: 21:35 [facility] 07/31 20:59 Order name: Troponin (emerg Dept Use Only); Complete Time: 21:46 [facility] 07/31 20:59 Order name: XRAY Chest (1 view) [facility] 07/31 21:47 Order name: CT Chest For PE Angio [facility] 07/31 21:47 Order name: CBC Smear Scan; Complete Time: 21:57 [facility] 07/31 23:22 Order name: Blood Culture Adult (2) [facility] 07/31 23:26 Order name: COVID-19 [facility] 07/31 23:26 Order name: CORONAVIRUS; Complete Time: 05:45 [facility] 07/31 20:59 Order name: EKG; Complete Time: 21:01 [facility] 07/31 20:59 Order name: Cardiac monitoring; Complete Time: 21:02 [facility] 07/31 20:59 Order name: EKG - Nurse/Tech; Complete Time: 21:10 [facility] 07/31 20:59 Order name: IV Saline Lock; Complete Time: 21:18 [facility] 07/31 20:59 Order name: Labs collected and sent; Complete Time: 21:18 [facility] 07/31 20:59 Order name: O2 Per Protocol; Complete Time: 21:02 [facility] 07/31 20:59 Order name: O2 Sat Monitoring; Complete Time: 21:02 [facility] Administered Medications: 23:06 Drug: Tylenol 1000 mg Route: PO; jd3 06 00:00 Follow up: Response: No adverse reaction jd3 00:05 Drug: LevaQUIN 750 mg Volume: 150 ml; Route: IVPB; Infused Over: 90 mins; Site: right jd3 forearm; 01:30 Follow up: Response: No adverse reaction; IV Status: Completed infusion; IV Intake: jd3 150ml 01:45 Drug: vancoMYCIN 1 grams Route: IVPB; Infused Over: 2 hrs; Site: right forearm; jd3 01:45 Follow up: Response: No adverse reaction; IV Status: Infusion continued upon admission jd3 Disposition: 08/02 00:11 Co-signature as Attending Physician, Samson Goncalves MD. rn Disposition: 08/01/19 23:30 Hospitalization ordered by Himanshu Lebron for Inpatient Admission. Preliminary diagnosis are Pneumonia, Acute on chronic combined systolic (congestive) and diastolic (congestive) heart failure. - Bed requested for Telemetry/MedSurg (Inpatient). - Status is Inpatient Admission. em - Condition is Stable. - Problem is new. - Symptoms are unchanged. Signatures: Dispatcher [employer] EDMS Mitchell Ashraf PA PA jmm Munoz, Edgar, RN RN Samson Monet MD MD rn Lasagna, Tonya RN RN tl1 Albino Herron RN RN jaHley Edmondson RN RN ca1 Corrections: (The following items were deleted from the chart) 08/01 01:01 07/31 23:30 Hospitalization Ordered by Himanshu Lebron for Inpatient Admission. tl1 Preliminary diagnosis is Pneumonia; Acute on chronic combined systolic (congestive) and diastolic (congestive) heart failure. Bed requested for Telemetry/MedSurg (Inpatient). Status is Inpatient Admission. Condition is Stable. Problem is new. Symptoms are unchanged. [facility] 08/01 05:56 01:01 08/01/2019 23:30 Hospitalization Ordered by Himanshu Lebron for Inpatient tl1 Admission. Preliminary diagnosis is Pneumonia; Acute on chronic combined systolic (congestive) and diastolic (congestive) heart failure. Bed requested for [facility] ER HOLD. Status is Inpatient Admission. Condition is Stable. Problem is new. Symptoms are unchanged. 1 08:50 05:56 08/01/2019 23:30 Hospitalization Ordered by Himanshu Lebron for Inpatient em Admission. Preliminary diagnosis is Pneumonia; Acute on chronic combined systolic (congestive) and diastolic (congestive) heart failure. Bed requested for Telemetry/MedSurg (Inpatient). Status is Inpatient Admission. Condition is Stable. Problem is new. Symptoms are unchanged. tl1
[2019-08-02] MEDS ORDERED: VANCOMYCIN 1 GM/VIAL ONE (00:07)
[2019-08-02] MEDS ORDERED: Levofloxacin 750mg IV 750 MG/150 ML BAG IV ONE (00:08)
[2019-08-02] MEDS ORDERED: NA CHLORIDE 0.9% 250 ML ONE ×2 (00:08→03:38)
--- NOTE | 2019-08-02 00:39 | P.HP ---
Certification for Inpatient Patient admitted to: Inpatient With expected LOS: >2 Midnights Practitioner: I am a practitioner with admitting privileges, knowledge of patient current condition, hospital course, and medical plan of care. Services: Services provided to patient in accordance with Admission requirements found in Title 42 Section 412.3 of the Code of Federal Regulations Patient History Date of Service: 08/02/19 Reason for admission: Shortness of breath. History of Present Illness: 69-year-old man with a history of prostate cancer with bone metastasis, hypertension and diabetes presented emergency department with a complaint of progressive shortness of breath. Patient was recently hospitalized 1 month ago for pleural effusion. Pericardial effusion and pulmonary embolus. CTA thorax done today suggest bilateral pleural effusion and bilateral pneumonia. He is admitted for further management. Allergies No Known Allergies Allergy (Verified 11/30/18 11:21) Home Medications: Enalapril Maleate [Vasotec] 1 tab PO DAILY 08/02/19 Hydrocodone 5/APAP 325 [[place] 5/325*] 1 tab PO Q4H 08/02/19 Linagliptin [Tradjenta] 1 tab PO DAILY 08/02/19 Ondansetron [Zofran (Odt)*] 1 tab PO Q6H 08/02/19 Spironolactone 1 tab PO DAILY 08/02/19 Tamsulosin [Flomax*] 1 tab PO DAILY 08/02/19 fentaNYL [Fentanyl] 50 mcg TOP EVERY 3RD DAY 08/02/19 glipiZIDE [Glipizide] 1 tab PO BID 08/02/19 predniSONE [Deltasone*] 1 tab PO DAILY 08/02/19 - Past Medical/Surgical History Diabetic: Yes -: HTN -: DMII -: Prostate CA mets to bone on radiation - Family History Brother -: Hypertension, Diabetes Sister -: Hypertension, Diabetes Mother -: Diabetes - Social History Alcohol use: No CD- Drugs: No Caffeine use: Yes Review of Systems Other: Except as documented, all other systems reviewed and negative. Physical Examination - Physical Exam General: Alert, In no apparent distress, Cachectic HEENT: Mucous membr. moist/pink, Sclerae nonicteric Neck: Supple, JVD not distended Respiratory: Crackles/rales (Bilateral) Cardiovascular: No edema, Regular rate/rhythm, Normal S1 S2 Capillary refill: <2 Seconds Gastrointestinal: Normal bowel sounds, Soft and benign, Non-distended, No tenderness Musculoskeletal: No swelling, No erythema Integumentary: No rashes Neurological: Normal speech, Normal strength at 5/5 x4 extr - Studies Laboratory Data (last 24 hrs) 08/01/19 21:17: PT 12.7 H, INR 1.08 08/01/19 21:17: WBC 4.0 L, Hgb 10.0 L, Hct 30.0 L, Plt Count 191 08/01/19 21:17: Sodium 143, Potassium 4.1, BUN 24 H, Creatinine 0.46 L, Glucose 116 H, Magnesium 2.0, Total Bilirubin 0.6, AST 35, ALT 12, Alkaline Phosphatase 177 H Assessment and Plan - Problems (Diagnosis) (1) Pneumonia Current Visit: Yes Status: Acute (2) Pleural effusion Current Visit: No Status: Acute (3) Pulmonary embolism Current Visit: No Status: Acute Qualifiers: Acute cor pulmonale presence: unspecified (4) Prostate cancer metastatic to bone Current Visit: No Status: Chronic - Plan Admit to the medical floor. Start IV Rocephin and Zithromax. Supplemental oxygen Continue Xarelto for pulmonary emboli Continue oral Lasix with intermittent IV Lasix as needed. Follow cultures Screen for Covid 19 Droplet isolation. - Advance Directives Does patient have a Living Will: No Does patient have a Durable POA for Healthcare: No - Code Status/Comfort Care Code Status: Full Code
[2019-08-02] MEDS ORDERED: FUROSEMIDE 40 MG/4 ML VIAL IV ONE (01:49)
[2019-08-02] MEDS ORDERED: ONDANSETRON 4 MG/2 ML VIAL IV PRN (01:49)
[2019-08-02] MEDS ORDERED: ALBUTEROL 2.5 MG/3 ML NEB SOL NEB PRN (01:49)
[2019-08-02] MEDS ORDERED: FUROSEMIDE 40 MG/4 ML VIAL ONE (02:16)
[2019-08-02] MEDS: AZITHROMYCIN IV 500 MG in NA CHLORIDE 0.9% 250 ML IVPB SCH (03:00)
[2019-08-02] MEDS ORDERED: AZITHROMYCIN 500 MG INJ IVPB ONE (03:37)
[2019-08-02] MEDS: CEFTRIAXONE/SWI 1gm 1 GM/10 ML SYR IV SCH ×2 (04:00→16:09)
[2019-08-02] MEDS ORDERED: CEFTRIAXONE/SWI 1gm 1 GM/10 ML SYR ONE (04:51)
--- NOTE | 2019-08-02 07:16 | EKG ---
Test Date: 2019-08-01 Test Time: 21:07:43 Outpatient Pharmacy Manager: MAXIMILIAN MEASUREMENT RESULTS: Intervals: Rate: 101 WY: 138 QRSD: 80 QT: 340 QTc: 440 [place]: P: 74 [place]: 138 QRS: 60 T: 58 INTERPRETIVE STATEMENTS: Sinus tachycardia Possible Anterior infarct, age undetermined Abnormal ECG Compared to ECG 09/21/2018 15:18:31 Myocardial infarct finding now present Sinus rhythm no longer present Electronically Signed On 08-02-19 07:15:09 CDT by Prasanna Grullon
[2019-08-02] MEDS: INSULIN -REGULAR HUMAN 50 UNIT/0.5 ML ML SQ SCH ×4 (07:30→20:54)
--- NOTE | 2019-08-02 07:31 | RAD REPORT ---
EXAM DESCRIPTION: RAD - Chest Single View - 08/01/2019 9:38 pm CLINICAL HISTORY: CHEST PAIN COMPARISON: Portable chest July 12 TECHNIQUE: AP portable chest image was obtained 08/01/2019 9:38 pm . FINDINGS: Large bilateral pleural effusions are present. Airspace consolidation is present in the mi d and lower left lung field. There is consolidated parenchyma in the right midlung field. Interstitia l markings are prominent throughout the lung [place]. Heart size and vasculature are normal size. No pneumothorax. Extensive bony metastatic disease is ethan ntifiable. No acute aortic findings suspected. Patient indicates no prior CHF history and denies cough and fever. Pleural and parenchymal changes wo uld be consistent with the CHF/volume overload pattern. Typical CHF has cardiomegaly and vascular eng orgement that are not present on this study. Bilateral infectious pneumonia B consideration even in t he absence of cough and fever. Pulmonary edema and pleural effusions as a response to therapy can hav e this presentation. Alveolar spread of tumor is not a typical prostate cancer presentation. IMPRESSION: Large bilateral pleural effusions, airspace consolidation in diffuse interstitial opacif ication. These findings are substantially progressive or new from prior imaging. CHF/volume overload would be the most common etiology. Pulmonary edema has a response to therapy woul d be a consideration. Patient denied any pneumonia type symptoms but infectious etiology would be a c onsideration.
[2019-08-02] MEDS: ACETAMINOPHEN 500 MG TAB PO PRN ×2 (15:03→22:13)
--- NOTE | 2019-08-02 19:41 | RAD REPORT ---
EXAM DESCRIPTION: CT - Chest For Pe Angio - 08/02/2019 6:46 amDisregard my text msg about this one, I was being overly cautious. CLINICAL HISTORY: Chest pain shortness of breath. TECHNIQUE: Chest CTA. 2.0 mm reconstructed axial images were obtained. Coronal, sagittal, right obli que, and left oblique reformatted images were obtained. DOSE OPTIMIZATION: This facility uses dose optimization techniques as appropriate to perform exams, including at least one of the following techniques: 1. Automated exposure control. 2. Adjustment of the mA and/or kV according to patient size (this includes techniques or standardized protocols for targeted exams where dose is matched to the indication/reason for exam, i.e. extremiti es or head). 3. Use of iterative reconstructive technique. INTRAVENOUS CONTRAST: Not documented. Please refer to medical record. COMPARISON: None. FINDINGS: Lung Rosen: There is a large infiltrate in the left upper lobe. There is a small infiltrate in the right upper lobe. There is evidence of severe diffuse interstitial pulmonary edema. Mediastinal Structures: There is no evidence of aortic dissection. 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 There is no pericardial effusion. There is no adenopathy. Pulmonary Arteries: Normal. Pleural Space: There is a large right pleural effusion and a moderate-sized left pleural effusion. Axillae: There are enlarged axillary lymph nodes bilaterally. The largest is on the left measuring 1. 8 x 1.4 cm. Upper Abdomen: Unremarkable. Bony Structures: There is diffuse blastic skeletal metastatic disease IMPRESSION: 1. No evidence of pulmonary embolus. 2. Large infiltrate left upper lobe. 3. Small infiltrate right upper lobe. 4. Severe congestive heart failure with bilateral pleural effusions severe diffuse interstitial edema . 5. Enlarged axillary lymph nodes. Adenopathy should be considered. 6. Aneurysmal dilatation of the posterior arch. 7. Diffuse blastic skeletal metastatic disease. Electronically signed by: John Paul Carbone MD 08/01/2019 10:39 PM CDT Due to temporary technical issues with the PACS/Fluency reporting system, reports are being signed by the in house radiologist without review as a courtesy to ensure prompt reporting. The interpreting r adiologist is fully responsible for the content of the report.
[2019-08-03] MEDS: TRAZODONE 50 MG TABLET PO PRN ×2 (01:10→19:52)
[2019-08-03] MEDS: AZITHROMYCIN IV 500 MG in NA CHLORIDE 0.9% 250 ML IVPB SCH (02:17)
[2019-08-03] MEDS: CEFTRIAXONE/SWI 1gm 1 GM/10 ML SYR IV SCH ×2 (03:26→15:57)
[2019-08-03 06:23] LABS: Absolute Lymphocytes (CBC) 0.5 K/uL (0.7-4.9); Basophils % 0.2 % (0-1.3); Lymphocytes % 13.1 % (15.3-44.8); MPV 7.2 fL (7.6-11.3); RBC Red Blood Cell Count 3.58 M/uL (4.33-5.43)
[2019-08-03 06:53] LABS: BUN Blood Urea Nitrogen 15 mg/dL (7-18); Bicarbonate 25 mmol/L (21-32); Glucose Level 129 mg/dL (74-106); HDL Cholesterol 42 mg/dL (40-60); LDL Cholesterol, Calculated 165 (<130); Magnesium 2.1 mg/dL (1.8-2.4); Phosphorus 2.3 mg/dL (2.5-4.9); Potassium 3.6 mmol/L (3.5-5.1); Sodium Level 138 mmol/L (136-145)
[2019-08-03] MEDS: INSULIN -REGULAR HUMAN 50 UNIT/0.5 ML ML SQ SCH ×4 (07:30→19:52)
[2019-08-03] MEDS: ACETAMINOPHEN 500 MG TAB PO PRN (07:50)
[2019-08-03] MEDS ORDERED: POTASSIUM CL SA 10 MEQ TAB PO ONE (09:00)
[2019-08-03] MEDS ORDERED: NA CHLORIDE 0.9% 1,000 ML IV ONE (09:59)
[2019-08-03] MEDS: POTASS/SODIUM PHOSPHATE 1 PKT POWD.PACK PO SCH ×3 (10:16→12:07)
--- NOTE | 2019-08-03 22:56 | P.PN ---
Subjective Date of Service: 08/03/19 Chief Complaint: Shortness of breath. Patient states he feels better today. He has been afebrile. The states the shortness of breath is better. Physical Examination - Vital Signs Temperature: 98.2 F Blood Pressure: 155/81 Pulse: 102 Respirations: 16 Pulse Ox (%): 97 - Physical Exam General: Alert, In no apparent distress, Oriented x3, Cachectic HEENT: Mucous membr. moist/pink Neck: Supple Respiratory: Crackles/rales (Mild bibasilar crackles) Cardiovascular: No edema, Regular rate/rhythm, Normal S1 S2 Gastrointestinal: Normal bowel sounds, Soft and benign, No tenderness Musculoskeletal: No swelling Integumentary: No rashes Neurological: Normal speech, Normal strength at 5/5 x4 extr Assessment And Plan - Current Problems (Diagnosis) (1) Pneumonia Current Visit: Yes Status: Acute (2) Pleural effusion Current Visit: No Status: Acute (3) Pulmonary embolism Current Visit: No Status: Acute Qualifiers: Acute cor pulmonale presence: unspecified (4) Prostate cancer metastatic to bone Current Visit: No Status: Chronic - Plan Continue IV antibiotics Supplemental oxygen Continue Xarelto for pulmonary emboli Continue oral Lasix with intermittent IV Lasix as needed. Follow cultures Screen for Covid 19 is negative.
[2019-08-03] MEDS ORDERED: HYDROCODONE/APAP 5/325 MG TAB PO SCH (23:45)
[2019-08-04] MEDS ORDERED: HYDROCODONE/APAP 5/325 MG TAB PO PRN (00:51)
[2019-08-04 02:37] VITALS: TEMP 97.5
[2019-08-04] MEDS: CEFTRIAXONE/SWI 1gm 1 GM/10 ML SYR IV SCH (03:10)
[2019-08-04] MEDS: AZITHROMYCIN IV 500 MG in NA CHLORIDE 0.9% 250 ML IVPB SCH (03:10)
[2019-08-04] MEDS: ACETAMINOPHEN 500 MG TAB PO PRN (04:00)
[2019-08-04 05:23] VITALS: BMI 19.5
[2019-08-04 06:51] LABS: BUN Blood Urea Nitrogen 15 mg/dL (7-18); Bicarbonate 26 mmol/L (21-32); Glucose Level 159 mg/dL (74-106); Phosphorus 2.6 mg/dL (2.5-4.9); Potassium 3.9 mmol/L (3.5-5.1); Sodium Level 139 mmol/L (136-145)
[2019-08-04] MEDS: INSULIN -REGULAR HUMAN 50 UNIT/0.5 ML ML SQ SCH ×2 (07:30→11:30)
[2019-08-04 08:30] VITALS: BP 151/78
--- NOTE | 2019-08-04 08:34 | P.PN ---
Subjective Date of Service: 08/04/19 Chief Complaint: Shortness of breath. Patient states he feels better today. He has been afebrile. He desaturated to 80% on room air. He desires to go home. Physical Examination - Vital Signs Temperature: 97.5 F Blood Pressure: 151/78 Pulse: 118 Respirations: 16 Pulse Ox (%): 94 - Physical Exam General: Alert, In no apparent distress HEENT: Mucous membr. moist/pink Neck: Supple Respiratory: Diminished (Bilaterally, left greater than right.), Crackles/rales (Bilateral) Cardiovascular: No edema, Regular rate/rhythm, Normal S1 S2 Gastrointestinal: Normal bowel sounds, Soft and benign, No tenderness Musculoskeletal: No swelling Integumentary: No rashes Neurological: Normal strength at 5/5 x4 extr Assessment And Plan - Current Problems (Diagnosis) (1) Pneumonia Current Visit: Yes Status: Acute (2) Pleural effusion Current Visit: No Status: Acute (3) Pulmonary embolism Current Visit: No Status: Acute Qualifiers: Acute cor pulmonale presence: unspecified (4) Prostate cancer metastatic to bone Current Visit: No Status: Chronic - Plan Continue IV antibiotics Supplemental oxygen Continue Xarelto for pulmonary emboli. Large left pleural effusion noted. Hold Xarelto tomorrow for thoracentesis on tuesday Continue bronchodilators Continue oral steroid. Arrange for home oxygen. Continue oral Lasix with intermittent IV Lasix as needed.
[2019-08-04] MEDS ORDERED: ENALAPRIL 10 MG TAB PO SCH (09:00)
[2019-08-04] MEDS ORDERED: predniSONE 10 MG TAB PO SCH (09:00)
[2019-08-04] MEDS ORDERED: SPIRONOLACTONE 25 MG TABLET PO SCH (09:00)
[2019-08-04] MEDS ORDERED: TAMSULOSIN 0.4 MG SR CAP PO SCH (09:00)
[2019-08-04] MEDS ORDERED: POTASSIUM CL SA 10 MEQ TAB PO ONE (09:00)
[2019-08-04] MEDS ORDERED: FENTANYL 50 MCG/PATCH TD SCH (09:00)
[2019-08-04 09:13] VITALS: O2SAT 90
--- NOTE | 2019-08-05 09:04 | P.DS ---
Admission Date: 08/02/19 Discharge Date: 08/05/19 Disposition: DC HOME/HOME HEALTH CARE Discharge Condition: FAIR Reason for Admission: Shortness of breath. - Problems (1) Pneumonia Status: Acute (2) Pleural effusion Status: Acute (3) Pulmonary embolism Status: Acute Qualifiers: Acute cor pulmonale presence: unspecified (4) Prostate cancer metastatic to bone Status: Chronic Brief History of Present Illness: 69-year-old man with a history of prostate cancer with bone metastasis, hypertension and diabetes presented emergency department with a complaint of progressive shortness of breath. Patient was recently hospitalized 1 month ago for pleural effusion. Pericardial effusion and pulmonary embolus. CTA thorax done today suggest bilateral pleural effusion and bilateral pneumonia. He was admitted for further management. Hospital Course: Patient admitted to the medical floor and treated with IV antibiotics for Pneumonia. He has a history of bilateral pleural effusion, worse on the left which is chronic. Patient was hypoxemic on room. His clinical condition improved with treatment. He is currently requiring oxygen by nasal cannula to maintain oxygen saturation and qualifies for home oxygen. Patient is therefore discharged home oxygen and home health. He is also discharged with Augmentin to continue treatment for the pneumonia. Vital Signs/Physical Exam: Temp Pulse Resp BP Pulse Ox 97.5 F 118 H 16 151/78 H 94 08/04/19 08:34 08/04/19 08:34 08/04/19 08:34 08/04/19 08:34 08/04/19 08:34 Laboratory Data at Discharge: WBC 3.6 K/uL (4.3-10.9) L 08/03/19 05:45 Hgb 9.8 g/dL (13.6-17.9) L 08/03/19 05:45 Hct 30.0 % (39.6-49.0) L 08/03/19 05:45 Plt Count 188 K/uL (152-406) 08/03/19 05:45 PT 12.7 SECONDS (9.5-12.5) H 08/01/19 21:17 INR 1.08 08/01/19 21:17 Sodium 139 mmol/L (136-145) 08/04/19 05:40 Potassium 3.9 mmol/L (3.5-5.1) 08/04/19 05:40 BUN 15 mg/dL (7-18) 08/04/19 05:40 Creatinine 0.44 mg/dL (0.55-1.3) L 08/04/19 05:40 Glucose 159 mg/dL (74-106) H 08/04/19 05:40 Phosphorus 2.6 mg/dL (2.5-4.9) 08/04/19 05:40 Magnesium 2.1 mg/dL (1.8-2.4) 08/03/19 05:45 Total Bilirubin 0.6 mg/dL (0.2-1.0) 08/01/19 21:17 AST 35 U/L (15-37) 08/01/19 21:17 ALT 12 U/L (12-78) 08/01/19 21:17 Alkaline Phosphatase 177 U/L (45-117) H 08/01/19 21:17 Triglycerides 280 mg/dL (<150) H 08/03/19 05:45 Cholesterol 263 mg/dL (<200) H 08/03/19 05:45 HDL Cholesterol 42 mg/dL (40-60) 08/03/19 05:45 Cholesterol/HDL Ratio 6.26 08/03/19 05:45 Home Medications: Enalapril Maleate [Vasotec] 1 tab PO DAILY 08/02/19 Hydrocodone 5/APAP 325 [[place] 5/325*] 1 tab PO Q4H 08/02/19 Linagliptin [Tradjenta] 1 tab PO DAILY 08/02/19 Ondansetron [Zofran (Odt)*] 1 tab PO Q6H 08/02/19 Spironolactone 1 tab PO DAILY 08/02/19 Tamsulosin [Flomax*] 1 tab PO DAILY 08/02/19 fentaNYL [Fentanyl] 50 mcg TOP EVERY 3RD DAY 08/02/19 predniSONE [Deltasone*] 1 tab PO DAILY 08/02/19 Albuterol Neb [Proventil 0.083% Neb Soln] 2.5 mg NEB Q6HR PRN #120 amp 08/04/19 Metformin HCl 500 mg PO BID #60 tablet 08/04/19 Nebulizer [Aeroneb Go Nebulizer] 1 each MC Q6HR #1 each 08/04/19 Amoxicillin/Potassium Clav [Augmentin 875-125 Tablet] 1 each PO BID #14 tablet 06/14/20 New Medications: Nebulizer [Aeroneb Go Nebulizer] 1 each MC Q6HR #1 each Albuterol Neb [Proventil 0.083% Neb Soln] 2.5 mg NEB Q6HR PRN #120 amp PRN Reason: Shortness Of Breath Amoxicillin/Potassium Clav [Augmentin 875-125 Tablet] 1 each PO BID #14 tablet Metformin HCl 500 mg PO BID #60 tablet Diet: ADA Activity: Fall precautions Followup: Ankush Perdue MD [COURTESY - CAN ADMIT] -
== END 2019-08-04 11:40 | disposition home or self-care (01) | DRG 193 ==
LOC: ER 20:47 → ERHOLD 08-02 00:46 → 4TH 08-02 08:44
PROVIDERS: ADMIT Internal Medicine; ATTEND Internal Medicine
PROC: 8E0ZXY6 Isolation (ICD-10-PCS; principal; 2019-08-02)
DX: J18.9 Pneumonia, unspecified organism (principal); I26.99 Other pulmonary embolism without acute cor pulmonale; C79.51 Secondary malignant neoplasm of bone; R64 Cachexia; I10 Essential (primary) hypertension; C61 Malignant neoplasm of prostate; E11.9 Type 2 diabetes mellitus without complications; Z20.828 Contact with and (suspected) exposure to other viral communicable diseases; Z79.891 Long term (current) use of opiate analgesic; Z79.84 Long term (current) use of oral hypoglycemic drugs; Z79.52 Long term (current) use of systemic steroids; Z79.899 Other long term (current) drug therapy; Z68.20 Body mass index [BMI] 20.0-20.9, adult
CPT/HCPCS: 36415; 71045; 71275; 80048; 80061; 80076; 82947; 83605; 83735; 83880; 84100; 84484; 85025; 85610; 87040; 93005; 94640; 94760; 96360; 96365; 96375; 99215; 99285; J0456; J0696; J1940; J7030; J7512; Q9967; U0002

== ENCOUNTER 2019-08-07 16:41 | Observation (INO) | payer OTHER ==
[2019-08-07] MEDS ORDERED: TRAMADOL HCL 50 MG TAB PO PRN (16:51)
[2019-08-07] MEDS ORDERED: ONDANSETRON 4 MG/2 ML VIAL IV PRN (16:51)
[2019-08-07] MEDS ORDERED: HYDROCODONE/APAP 7.5/325 MG TAB PO PRN (16:51)
[2019-08-07] MEDS ORDERED: ACETAMINOPHEN 500 MG TAB PO PRN (16:51)
[2019-08-07] MEDS ORDERED: FUROSEMIDE 40 MG/4 ML VIAL IV SCH (17:00)
--- NOTE | 2019-08-07 17:26 | P.HP ---
Certification for Inpatient Patient admitted to: Observation With expected LOS: <2 Midnights Patient will require the following post-hospital care: Home Health Services Practitioner: I am a practitioner with admitting privileges, knowledge of patient current condition, hospital course, and medical plan of care. Services: Services provided to patient in accordance with Admission requirements found in Title 42 Section 412.3 of the Code of Federal Regulations Patient History Date of Service: 08/07/19 Primary Care Provider: Oncology-Dr. Caputo Reason for admission: Shortness of breath History of Present Illness: 69-year-old male with history of metastatic prostate cancer presented to Oncology office today. Patient was having increasing shortness of breath. Patient was actually hospitalized over the weekend for pleural effusions. He was to have stayed in the hospital for thoracentesis but had to leave due to a sister that . When the patient was evaluated at oncology, oxygen saturations were around 86%. He denied any fever, chills, nausea or vomiting. Patient had a thoracentesis in June. Oncology felt patient needed to be hospitalized for evaluation for possible thoracentesis again. I was contacted for direct admission. Patient direct admitted. When I saw the patient he appeared without significant distress. Patient was hypoxic with ambulation. Patient appears cachectic with muscle wasting to the upper lower extremities and torso. Lab pending. Chest x- ray pending. Allergies No Known Allergies Allergy (Verified 11/30/18 11:21) Home medications list reviewed: Yes Home Medications: Enalapril Maleate [Vasotec] 1 tab PO DAILY 08/02/19 Hydrocodone 5/APAP 325 [[place] 5/325*] 1 tab PO Q4H 08/02/19 Linagliptin [Tradjenta] 1 tab PO DAILY 08/02/19 Ondansetron [Zofran (Odt)*] 1 tab PO Q6H 08/02/19 Spironolactone 1 tab PO DAILY 08/02/19 Tamsulosin [Flomax*] 1 tab PO DAILY 08/02/19 fentaNYL [Fentanyl] 50 mcg TOP EVERY 3RD DAY 08/02/19 predniSONE [Deltasone*] 1 tab PO DAILY 08/02/19 Albuterol Neb [Proventil 0.083% Neb Soln] 2.5 mg NEB Q6HR PRN #120 amp 08/04/19 Metformin HCl 500 mg PO BID #60 tablet 08/04/19 Nebulizer [Aeroneb Go Nebulizer] 1 each MC Q6HR #1 each 08/04/19 - Past Medical/Surgical History Diabetic: Yes -: Hypertension -: Diabetes mellitus type 2 -: Metastatic prostate cancer with mets to the bone -: Chronic diastolic CHF -: Chronic steroid use Past Surgical History: Patient denies surgical history Psychosocial/ Personal History: Patient lives at home with . - Family History Brother -: Hypertension, Diabetes Sister -: Hypertension, Diabetes Mother -: Diabetes - Social History Smoking Status: Never smoker Alcohol use: No CD- Drugs: No Caffeine use: Yes Place of Residence: Home Review of Systems General: Weakness, Malaise, As per HPI Eyes: Unremarkable ENT: Unremarkable Respiratory: Shortness of Breath, SOB with Excertion, As per HPI Cardiovascular: Edema, As per HPI Gastrointestinal: Unremarkable Genitourinary: Unremarkable Musculoskeletal: Pedal edema (Left lower extremity edema noted.) Integumentary: Unremarkable Neurological: Unremarkable Lymphatics: Unremarkable Physical Examination - Physical Exam General: Alert, In no apparent distress, Oriented x3, Cooperative, Cachectic, Other (Muscle wasting noted to the upper and lower extremity including torso and face.) HEENT: Atraumatic, Normocephalic Neck: Supple Respiratory: Diminished (Bilateral), Crackles/rales (Bilateral) Cardiovascular: Normal pulses, Regular rate/rhythm Gastrointestinal: Normal bowel sounds, Soft and benign, Non-distended, No tenderness, No masses, No rebound, No guarding Musculoskeletal: No tenderness, No warmth Integumentary: No erythema, No warmth, No cyanosis, Other (left lower ext compared to the right) Neurological: Normal speech, Normal strength at 5/5 x4 extr, Normal tone, Normal affect Assessment and Plan - Plan Impression: Shortness of breath with hypoxia secondary to malignant pleural effusions complicated with possible acute on chronic diastolic CHF Metastatic prostate cancer with bone Mets Hypertension Diabetes mellitus type 2 Chronic steroid use Chronic left lower extremity edema Chronic pain secondary to metastatic prostate cancer Plan: Shortness of breath with hypoxia secondary to malignant pleural effusions complicated with possible acute on chronic diastolic CHF: Patient is direct admit. Will provide oxygen to maintain sats above 93%. Will check lab-CBC, BMP, and chest x-ray. Will evaluate for underlying infection. Suspect bilateral pleural effusions likely malignant from his cancer. Also needed consider underlying acute on chronic diastolic CHF. Recent echo reviewed. Will start with IV diuresis. Will consult pulmonology for further recommendation. Patient with history of thoracentesis in the past. Will determine if patient would benefit with thoracentesis at this time. Will discuss further with pulmonology. Case discussed at length with oncology. Patient does not want hospice at this time. Advanced directives and advance care planning address in detail. Patient wishes to be full code at this time. As mentioned above patient does not want hospice at this time. Patient understands that his prostate cancer is terminal. Will provide education on hospice. Anticipate improvement over the next 24-48 hr. Advanced care planning time-15 min Metastatic prostate cancer with bone Mets: Patient with terminal metastatic pr ostate cancer. Patient on chronic pain medication. Case discussed at length with oncology. Will provide education on hospice. Patient understands that his condition is terminal. Oncology recommends no further treatment plan peer Hypertension: Obtain and restart home medication. Diabetes mellitus type 2: Obtain and restart home medication. Will provide sliding scale. Chronic steroid use: Continue the medication Chronic left lower extremity edema: Edema to the left lower extremity appears chronic. Will check venous Doppler to rule out DVT. Recent CT chest did not show pulmonary embolism. Chronic pain secondary to metastatic prostate cancer: Continue with fentanyl. Provide short-acting medication for breakthrough pain. Discharge Plan: Home Plan to discharge in: 48 Hours - Advance Directives Does patient have a Living Will: No Does patient have a Durable POA for Healthcare: No - Code Status/Comfort Care Code Status Assessed: Yes (He is full code) Time Spent Managing Pts Care (In Minutes): 55
--- OUTSIDE RECORDS SUMMARY | 2019-08-07 17:26 | XMS REPORT | Clinical Summary ---
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
--- OUTSIDE RECORDS SUMMARY | 2019-08-07 17:27 | XMS REPORT | Continuity of Care Document ---
:1950 Author Organization [facility] t Address [address] [place] [address] Care Team Providers Name Role Phone Sergio Morgan DO Primary Care Physician [phone] Harshal GRAYSON, [facility] Attending Clinician Bi GRAYSON Attending Clinician Payers Payer Name Policy Type Policy Number Effective Expiration Source Date Date TEXANPLUSTEXANPLUS O xxxxxxxx [facility] ALLxxxxxxxx[facility] Problems This patient has no known problems. Allergies, Adverse Reactions, Alerts This patient has no known allergies or adverse reactions. Family History Family Member Diagnosis Comments Start Date Stop Date Source Natural mother Diabetes [facility] thodist Social History Social Habit Start Date Stop Date Quantity Comments Source Sex Assigned At [facility] Cigarettes smoked 2018-01-18 2018-01-18 Shawn [facility] current (pack per 00:00:00 00:00:00 day) - Reported Cigarette 2018-01-18 2018-01-18 Escobar Method ist pack-years 00:00:00 00:00:00 History of tobacco 1974-02-21 1979-02-21 Current smoker Angel tammie [facility] use 00:00:00 00:00:00 Smoking Status Start Date Stop Date Source Former smoker 2018-01-18 00:00:00 2018-01-18 00:00:00 Shawn Hameedist Medications This patient has no known medications. Procedures Procedure Date / Time Performing Clinician Source Performed SARS-COV2/RT-PCR ([facility] & 2019-08-01:44:00 [facility] LABS) [facility] RADIOTHERAPY IV 2019-07-27 14:05:00 H[facility] [place] RADIOTHERAPY IV 2019-06-19 14:00:00 Harshal [facility] [place] RADIOTHERAPY IV 2019-05-17 14:50:00 radha [facility] [place] RADIOTHERAPY IV 2019-04-02 16:16:00 Harshal [facility] [place] RADIOTHERAPY IV 2019-03-02 15:[facility] 2019-01-25 15:59:00 [facility] Plan of Care Planned Activity Planned Date Details Comments Source Future Scheduled 2019-09-22 INFLUENZA VACCINE [place] [facility] Test 00:00:00 [code = INFLUENZA VACCINE] Future Scheduled 2017 65+ PNEUMOCOCCAL [place] [facility] Test 00:00:00 VACCINE (1 of 2 - PCV13) [code = 65+ PNEUMOCOCCAL VACCINE (1 of 2 - PCV13)] Future Scheduled 2002 COLONOSCOPY SCREENING [facility] Test 00:00:00 [code = COLONOSCOPY SCREENING] Future Scheduled 2002 SHINGLES VACCINES (#1) [place] [facility] Test 00:00:00 [code = SHINGLES VACCINES (#1)] Results Test Description Test Time Test Comments Results Result Comments Source SARS-CoV2/RT-PCR ([facility] & Ref Labs) 2019-08-02 08:11:00 Test Item Value Reference Range Interpretation Comme nts SARS-COV2/RT-PCR (test code = Not Detected Not Detected, Negative 70338-3) SARS-COV-2 PERFORMING LAB [facility] (test code = 97756-9) BHARAT (test code = BHARAT) Negative results do not preclude SARS-CoV-2 infection and should not be used as the sole basis for patient management decisions. Negative results must be combined with clinical observations, patient history, and epidemiological information. A false negative result may occur if a specimen is improperly collected, transported or handled. The limit of detection for this assay is 250 copies/mL. This SARS CoV-2 test is a rapid, real-time RT-PCR test intended for the qualitative detection of nucleic acid from SARS-CoV-2 in a nasopharyngeal swab specimen collected from individuals suspected of COVID-19 by their healthcare provider. This test has not been Food and Drug Administration (FDA) cleared or approved and has been authorized by FDA under an Emergency Use Authorization (EUA). This EUA will be effective until the declaration that circumstances exist justifying the authorization of the emergency use of in vitro diagnostic tests for detection and/or diagnosis of COVID-19 is terminated under Section 564(b)(2) of the Act or the EUA is revoked under Section 564(g) of the Act. Fact Sheet for Healthcare Providers:https://www.Multip[employer] Networks/Documents/Xpert%20Xpress %20SARS%20CoV-2/Fact%20Sheets /302-3802%89CBMM-THG-1%20HEAL THCARE%20PROVIDERS%20FACT%20S HEET.pdf Fact Sheet for Healthcare Patients:https://www.Expert [employer] Navigation/Documents/Xpert%20Xpress% 20SARS%20CoV-2/Fact%20Sheets/ 3023801%95NRER-BHA-3%20PATIE NT%20FACT%20SHEET.pdf Performing Laboratory:[facility] [place] [address] [facility] REF [facility]2019-08-02 08:11:00 Test Item Value Reference Range Interpretation Comments SARS-COV2/RT-PCR (test Not Detected Not Detected, Negative code = 6106260) SARS-COV-2 PERFORMING LAB [facility] (test code = 1143982) Negative results do not preclude SARS-CoV-2 infection and should not be used as the sole basis for patient management decisions. Negative results must be combined with clinical observations, patient history, and epidemiological information. A false negative result may occur if a specimen is improperly collected, transported or handled.The limit of detection for this assay is 250 copies/mL.This SARS CoV-2 test is a rapid, real-time RT-PCR test intended for the qualitative detection of nucleic acid from SARS-CoV-2 in a nasopharyngeal swab specimen collected from individuals suspected of COVID-19 by their healthcare provider.This test has not been Food and Drug Administration (FDA) cleared or approved and has been authorized by FDA under an Emergency Use Authorization (EUA). This EUA will be effective until the declaration that circumstances exist justifying the authorization of the emergency use of in vitro diagnostic tests for detection and/or diagnosis of COVID-19 is terminated under Section 564(b)(2) of the Act or the EUA is revoked under Section 564(g) of the Act.Fact Sheet for Healthcare Pro viders:https://www.24PageBooks/Documents/Xpert%20Xpress%20SARS%20CoV-2/Fact%20Sh eets/302-3802%08LHLR-LVE-0%20HEALTHCARE%20PROVIDERS%20FACT%20SHEET.pdfFact Sheet for Healthcare Patients:https://www.CriticalBlue/Documents/Xpert%20Xpress%20SARS%20CoV-2/Fact%20Sheets/3023801%20SARS-COV -2%20PATIENT%20FACT%20SHEET.pdfPerforming Laboratory:[place] [address] [address], [place] [id number] 15:52:00Reason for Exam:->C61, C79.51FINAL REPORT PROCEDURE: RADIONUCLIDE THERAPY - RADIUM CHLORIDE CPT CODE: 49414 INDICATION: Prostate Cancer with bone metastasis PROTOCOL: 94.0 microcuries ofRa-223 chloride was injected intravenously by the nuclear medicine physician. Post-treatment radiation precautions were discussed with the patient, and written instructions were provided. IMPRESSION: Alpha particle, nonsealed source, radiotherapy for prostate cancer metastatic to bone. Number 6 of6 planned treatments. Signed: Raj Paiz Verified Date/Time: 07/27/2019 15:52:07 Reading Location: [address] Reading Room [place] radiotherapy iv [id number] 15:52:00Interface, External Ris In - 07/27/2019 3:54 PM CDTFINAL REPORT PROCEDURE: RADIONUCLIDE THERAPY - RADIUM CHLORIDE CPT CODE: 83790 INDICATION: Prostate Cancer with bone metastasis PROTOCOL: 94.0 microcuries of Ra-223 chloride was injected intravenously by the nuclear medicine physician. Post- treatment radiation precautions were discussed with the patient, and written instructions were provided. IMPRESSION: Alpha particle, nonsealed source, radiotherapyfor prostate cancer metastatic to bone. Number 6 of 6 planned treatments. Signed: Raj Paiz Verified Date/Time: 07/27/2019 15:52:07 Reading Location: [address] Reading Room [facility], IV [id number] 16:04:00Reason for Exam:->c61, c79.51FINAL REPORT PROCEDURE: RADIONUCLIDE THERAPY - RADIUM CHLORIDE CPT CODE: 58444 INDICATION: Prostate Cancer with bone metastasis PROTOCOL: 88.4 mCi of Ra-223 chloride was injected intravenously by the nuclear medicine physician. Post-treatment radiation precautions were discussed with the patient, and written instructions were provided. IMPRESSION: Alphaparticle, nonsealed source, radiotherapy for prostate cancer metastatic to bone. Number 5 of 6 planned treatments. Signed: Raj Paiz Verified Date/Time: 06/19/2019 16:04:25 Electronic ally signed by: RAJ PAIZ MD on 06/19/2019 04:04 [facility], IV [id number] 15:40:00Reason for Exam:->bone metastasis, prostate cancerFINAL REPORT PROCEDURE: RADIONUCLIDE THERAPY - RADIUM CHLORIDE CPT CODE: 01218 INDICATION: Prostate Cancer with bone metastasis PROTOCOL: 0.082 mCi of Ra-223chloride was injected intravenously by the nuclear medicine physician. Post-treatment radiation precautions have been discussed with the patient, and written instructions have been provided. IMPRESSION: Alpha particle, nonsealed source, radiotherapy for prostate cancer metastatic to bone. Number 4of 6 planned treatments. Signed: Aziza Sage Verified Date/Time: 05/17/2019 15:40:48 Reading Location: [address] Reading Room RADIO'TX, IV [id number] 11:55:00 Reason for Exam:->prostate cancerFINAL REPORT PROCEDURE: RADIONUCLIDE THERAPY - RADIUM CHLORIDE CPT CODE: 45432 INDICATION: Prostate Cancer with bone metastasis PROTOCOL: 0.086 mCi of Ra-223chloride was injected intravenously by the nuclear medicine physician. Post-treatment radiation precautions were discussed with the patient, and written instructions were provided. IMPRESSION: Alpha particle, nonsealed source, radiotherapy for prostate cancer metastatic to bone. Number two of 6 merlyn nned treatments. Signed: Raj Paiz Verified Date/Time: 04/04/2019 11:55:56 Reading Location: [address] [facility] Reading Room O'TX, IV [id number] 16:37:00Reason for Exam:->prostate cancerFINAL REPORT PROCEDURE: RADIONUCLIDE THERAPY - RADIUM CHLORIDE CPT CODE: [id number] INDICATION: Prostate Cancer with bone metastasis PROTOCOL: 0.082 mCi of Ra-223chloride was injected intravenously by the nuclear medicine physician. Post-treatment radiation precautions have been discussed with the patient and his daughter and written instructions have been provided. IMPRESSION: Alpha particle, nonsealed source, radiotherapy for prostate cancer metastatic to bone. Number 2 of 6 planned treatments. Signed: Aziza Sage Verified Date/Time: 03/02/2019 16:37:55 Reading Location: [address] [facility] Reading Room RADIO'TX, IV ADMINISTRATION 2019-01-25 18:41:00Reason for Exam:->C61.C79.51FINAL REPORT PROCEDURE: RADIONUCLIDE THERAPY - RADIUM CHLORIDE CPT CODE: 60189 INDICATION: Prostate Cancer with bone metastasis PROTOCOL: 0.088 mCi of Ra-223chloride was injected intravenously by the nuclear medicine physician. Post-treatment radiation precautions were discussed with the patient and his daughter, and written instructions were provided. IMPRESSION: Alpha particle, nonsealed source, radiotherapy for prostate cancer metastatic to bone. Number 1 of 6 planned treatments. Signed: Aziza Sage MDReport Verified Date/Time: 01/25/2019 18:41:49 Reading Location: [address] Reading Room
--- OUTSIDE RECORDS SUMMARY | 2019-08-07 17:27 | XMS REPORT | Clinical Summary ---
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) 07/25/2019 Outside Orders Central Scheduling Harshal, Maligna nt neoplasm of prostate (HCC) (Primary Dx); Geovanna Randall 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) 06/19/2019 Hospital Encounter Radiology Harshal, Prostate cancer (HCC); Geovanna Randall Bone metastas is (HCC) 06/15/2019 Outside Orders Central Scheduling Harshal, Prostat e cancer (HCC) (Primary Dx); Geovanna Randall Bone metastas is (HCC) 05/17/2019 Hospital Encounter Radiology Harshal, Prostate cancer (HCC); Geovanna Randall Bone metastas is (HCC) 05/16/2019 Outside Orders Radiology Harshal, Prostate canc er (HCC) (Primary Dx); Geovanna Randall Bone metastas is (HCC) 04/02/2019 Hospital Encounter Radiology Bi, Prostate cancer (HCC) MD Emmett 03/30/2019 Outside Orders Radiology Harshal, Prostate canc er (HCC) Geovanna Randall (Primary Dx) 03/02/2019 Hospital Encounter Radiology Harshal, Prostate cancer (HCC); Geovanna Randall Bone metastas is (HCC) 02/24/2019 Outside Orders Central Scheduling Harshal Prostat e cancer (HCC) (Primary Dx); Geovanna Randall Bone metastas is (HCC) 01/25/2019 Hospital Encounter Radiology Harshal, Bone meta stasis (HCC); Geovanna Randall Prostate canc er (HCC) 01/17/2019 Outside Orders Central Scheduling Harshal Bone me tastasis (HCC) (Primary Dx); Geovanna Randall Prostate canc er (HCC) after 08/06/2018 Social History Tobacco Use Types Packs/Day Years [...] Procedure Name Priority Date/Time Associated Comments Diagnosis SARS-COV2/RT-PCR ([facility] Routine 08/01/2019 11:44 R esults for this & REF LABS) PM CDT procedure are i n the results section. NM RADIOTHERAPY IV Routine 07/27/2019 2:05 Malignant [...] cancer Re sults for this ADMINISTRATION PM MATERIAL EXPEDITOR (HCC) procedure are in the results section. NM RADIOTHERAPY IV Routine 03/02/2019 3:33 Prostate cancer Re sults for this ADMINISTRATION PM MATERIAL EXPEDITOR (HCC) procedure are in Bone metastasis the results (HCC) section. NM RADIOTHERAPY IV Routine 01/25/2019 3:59 Bone metastasis Re sults for this ADMINISTRATION PM MATERIAL EXPEDITOR (HCC) procedure are in Prostate cancer the results (HCC) section. after 08/06/2018 Results SARS-CoV2/RT-PCR ([facility] & Ref Labs) (08/01/2019 11:44 PM CDT) SARS-COV2/RT-PCR Not Detected Not Detected, Negative [facility] SARS-COV-2 PERFORMING LAB [facility] Specimen Other Narrative Performed At Negative results do not preclude SARS-CoV-2 [facility] infection and should not be used as [...] of the Act. Fact Sheet for Healthcare Providers: https://www.FP Complete/Documents/Xpert%20Xpre ss%20SARS%20CoV-2/Fact%20Sheets/3023802%20SAR S-COV-2%20HEALTHCARE%20PROVIDERS%20FACT%20SHEE T.pdf Fact Sheet for Healthcare Patients: https://www.[employer]com/Documents/Xpert%20Xpre ss%20SARS%20CoV-2/Fact%20Sheets/3023801%20SAR S-COV-2%20PATIENT%20FACT%20SHEET.pdf Performing Laboratory: [address] [place] [address] Performing Organization Address City/State/Zipcode Phone Number [address] [address] CENTER [place] radiotherapy iv administration (07/27/2019 2:05 PM CDT)Only the most recent of6 resultswithin the time period is included. Specimen Narrative Performed At FINAL REPORT GE RIS PROCEDURE:RADIONUCLIDE THERAPY - RADIUM CHLORIDE CPT CODE:[id number] INDICATION:Prostate Cancer w ith bone metastasis PROTOCOL:94.0 [...] MD Report Verified Date/Time:07/27/2019 15:52:07 Reading Location: [address] Med Reading Room Procedure Note Interface, External Ris In - 07/27/2019 3:54 PM CDT FINAL REPORT PROCEDURE: RADIONUCLIDE THERAPY - RAD IUM CHLORIDE CPT CODE: [id number] INDICATION: Prostate Cancer with cristiana ne metastasis [...] Verified Date/Time: 07/27/2019 1 5:52:07 Reading Location: [address] Med Reading Room Performing Organization Address City/State/Zipcode Phone Number GE RIS after 08/06/2018 Insurance Payer Benefit Plan / Group Subscriber ID Type Phone A ddress [employer]PLUS [employer] H[employer] ALL xxxxxxxx Maps Contracted
[2019-08-07] MEDS ORDERED: D50W 25 GM/50 ML SYRINGE/VIAL IV PRN (17:32)
[2019-08-07] MEDS ORDERED: GLUCAGON 1 MG/VIAL IM PRN (17:32)
[2019-08-07 17:41] LABS: Absolute Lymphocytes (CBC) 0.4 K/uL (0.7-4.9); Basophils % 0.3 % (0-1.3); Lymphocytes % 10.7 % (15.3-44.8); MPV 7.4 fL (7.6-11.3); RBC Red Blood Cell Count 3.61 M/uL (4.33-5.43)
[2019-08-07 17:55] LABS: ALT/SGPT 16 U/L (12-78); AST/SGOT 72 U/L (15-37); Albumin 2.7 g/dL (3.4-5.0); Alkaline Phosphatase 199 U/L (45-117); BUN Blood Urea Nitrogen 29 mg/dL (7-18); Bicarbonate 27 mmol/L (21-32); Bilirubin Total 0.5 mg/dL (0.2-1.0); Glucose Level 122 mg/dL (74-106); Magnesium 2.3 mg/dL (1.8-2.4); Potassium 3.8 mmol/L (3.5-5.1); Protein, Total 6.6 g/dL (6.4-8.2); Sodium Level 141 mmol/L (136-145)
[2019-08-07] MEDS: ENOXAPARIN 40 MG/0.4 ML SQ SCH (18:12)
[2019-08-07] MEDS: FUROSEMIDE 20 MG/ 2ML VIAL IV SCH (18:14)
[2019-08-07 18:43] LABS: Anisocytosis 2+; Blood Morphology Comment NOTED (NOT SEEN); Platelet Estimate ADEQ; Urine White Blood Cell Casts OK
[2019-08-07] MEDS: INSULIN -REGULAR HUMAN 50 UNIT/0.5 ML ML SQ SCH (21:00)
[2019-08-07] MEDS ORDERED: POTASSIUM CL SA 10 MEQ TAB PO ONE (21:00)
[2019-08-08 06:31] LABS: BUN Blood Urea Nitrogen 26 mg/dL (7-18); Bicarbonate 29 mmol/L (21-32); Glucose Level 103 mg/dL (74-106); Phosphorus 2.9 mg/dL (2.5-4.9); Sodium Level 142 mmol/L (136-145)
[2019-08-08] MEDS: INSULIN -REGULAR HUMAN 50 UNIT/0.5 ML ML SQ SCH ×4 (07:30→20:20)
[2019-08-08] MEDS: FUROSEMIDE 20 MG/ 2ML VIAL IV SCH ×2 (08:22→16:29)
[2019-08-08] MEDS: ENOXAPARIN 40 MG/0.4 ML SQ SCH (08:22)
--- NOTE | 2019-08-08 08:39 | P.CNS ---
Date of Consult: 08/08/19 Primary Care Provider: Oncology-Dr. Caputo Chief Complaint: Shortness of breath History of Present Illness: Patient is 69 years of age admitted with worsening dyspnea over the past week patient has metastatic prostate cancer as a bilateral pleural effusions sitter thoracenteses on July 12. He has had some more swelling of his left leg was admitted from the oncology office denies any fever chills or chest pain chest x- ray shows bilateral interstitial changes Allergies No Known Allergies Allergy (Verified 11/30/18 11:21) Home Medications: Enalapril Maleate [Vasotec] 1 tab PO DAILY 08/02/19 Hydrocodone 5/APAP 325 [[place]adonia 5/325*] 1 tab PO Q4H 08/02/19 Linagliptin [Tradjenta] 1 tab PO DAILY 08/02/19 Ondansetron [Zofran (Odt)*] 1 tab PO Q6H 08/02/19 Spironolactone 1 tab PO DAILY 08/02/19 Tamsulosin [Flomax*] 1 tab PO DAILY 08/02/19 fentaNYL [Fentanyl] 50 mcg TOP EVERY 3RD DAY 08/02/19 predniSONE [Deltasone*] 1 tab PO DAILY 08/02/19 Albuterol Neb [Proventil 0.083% Neb Soln] 2.5 mg NEB Q6HR PRN #120 amp 08/04/19 Metformin HCl 500 mg PO BID #60 tablet 08/04/19 Nebulizer [Aeroneb Go Nebulizer] 1 each MC Q6HR #1 each 08/04/19 - Past Medical/Surgical History Diabetic: Yes -: Hypertension -: Diabetes mellitus type 2 -: Metastatic prostate cancer with mets to the bone -: Chronic diastolic CHF -: Chronic steroid use Psychosocial/ Personal History: Patient lives at home with . - Family History Brother Medical History: Hypertension, Diabetes Sister Medical History: Hypertension, Diabetes Mother Medical History: Diabetes - Social History Smoking Status: Unknown if ever smoked Alcohol use: No CD- Drugs: No Caffeine use: Yes Place of Residence: Home Review of Systems is unable to be obtained Physical Examination Temp Pulse Resp BP Pulse Ox 97.6 F 107 H 16 143/83 H 96 08/08/19 04:00 08/08/19 08:22 08/08/19 04:00 08/08/19 08:22 08/08/19 04:00 General: Alert, Oriented x3 Respiratory: Crackles/rales (Crackles bilaterally) Cardiovascular: Normal S1 S2, Edema (Edema of the left leg) Gastrointestinal: Normal bowel sounds, Soft and benign Laboratory Data (last 24 hrs) 08/08/19 05:33: Sodium 142, Potassium 4.0, BUN 26 H, Creatinine 0.45 L, Glucose 103, Phosphorus 2.9 08/07/19 17:24: Sodium 141, Potassium 3.8, BUN 29 H, Creatinine 0.65, Glucose 122 H, Magnesium 2.3, Total Bilirubin 0.5, AST 72 H, ALT 16, Alkaline Phosphatase 199 H 08/07/19 17:24: WBC 3.7 L, Hgb 10.2 L, Hct 31.0 L, Plt Count 205 - Problems (1) Shortness of breath Current Visit: Yes Status: Acute Plan: Patient is 69 years of age with metastatic prostate cancer recurrent pleural effusions admitted with worsening dyspnea may well have underlying DVT is left leg is swollen with thromboembolism patient is high risk for DVT pulmonary embolism increase Lovenox to 1 milligram/kilogram SQ b.i.d. CXRy Bilateral changes. NE of sepsis. Thoracentesis not indicated at this time
[2019-08-08 08:40] VITALS: O2SAT 97
--- NOTE | 2019-08-08 08:42 | RAD REPORT ---
EXAM DESCRIPTION: RAD - Chest Pa And Lat (2 Views) - 08/08/2019 5:57 am CLINICAL HISTORY: follow up pleural effusions. Chest pain. COMPARISON: Chest Single View dated 08/01/2019; Chest Single View dated 07/13/2019; Chest Single View dated 07/02/2019; Chest Pa And Lat (2 Views) dated 05/05/2019; Chest For Pe Angio dated 08/01/2019 FINDINGS: Extensive bilateral pulmonary opacities with moderate pleural effusions appear stable sinc e prior study. The heart is normal in size. Extensive bony sclerosis again seen.
[2019-08-08] MEDS ORDERED: SPIRONOLACTONE 25 MG TABLET PO SCH (09:00)
[2019-08-08] MEDS ORDERED: TAMSULOSIN 0.4 MG SR CAP PO SCH (09:00)
[2019-08-08] MEDS ORDERED: predniSONE 10 MG TAB PO SCH (09:00)
[2019-08-08] MEDS: SPIRONOLACTONE 25 MG TABLET PO SCH ×2 (09:00→20:20)
[2019-08-08] MEDS: ENOXAPARIN 60 MG/0.6 ML SQ SCH ×2 (09:00→20:20)
--- NOTE | 2019-08-08 13:27 | RAD REPORT ---
[facility]12 pm CLINICAL HISTORY: left leg pain and swelling. COMPARISON: June 2019 FINDINGS: Left common femoral, superficial femoral, popliteal and posterior tibial veins are compre ssible and demonstrate augmentation. Doppler demonstrates good flow. Mild left inguinal lymphadenopathy may be reactive in nature IMPRESSION: No evidence of deep venous thrombosis involving the left lower extremity.
--- NOTE | 2019-08-08 14:32 | P.PN ---
Subjective Date of Service: 08/08/19 Primary Care Provider: Oncology-Dr. Caputo Chief Complaint: Shortness of breath Subjective: Doing well Physical Examination - Vital Signs Temperature: 97.1 F Blood Pressure: 139/64 Pulse: 102 Respirations: 18 Pulse Ox (%): 97 - Physical Exam General: Alert HEENT: Atraumatic Neck: Supple Respiratory: Diminished (To the bases bilateral) Cardiovascular: Normal pulses, Regular rate/rhythm Gastrointestinal: Normal bowel sounds, Soft and benign, Non-distended Integumentary: No warmth, No cyanosis, Tenderness/swelling (Edema to the left lower extremity noted) Neurological: Normal speech, Normal strength at 5/5 x4 extr, Normal tone - Studies Laboratory Data (last 24 hrs) 08/08/19 05:33: Sodium 142, Potassium 4.0, BUN 26 H, Creatinine 0.45 L, Glucose 103, Phosphorus 2.9 08/07/19 17:24: Sodium 141, Potassium 3.8, BUN 29 H, Creatinine 0.65, Glucose 122 H, Magnesium 2.3, Total Bilirubin 0.5, AST 72 H, ALT 16, Alkaline Phosphatase 199 H 08/07/19 17:24: WBC 3.7 L, Hgb 10.2 L, Hct 31.0 L, Plt Count 205 Microbiology Data (last 24 hrs): 08/07/19 18:25 Nasopharnyx Coronavirus COVID-19 PCR - Final Medications List Reviewed: Yes Assessment & Plan Discharge Plan: Home (With home health and physical therapy versus hospice) Plan to discharge in: 24 Hours - Code Status/Comfort Care Code Status: Full Code Physician Review Additional Text: Impression: Shortness of breath with hypoxia secondary to malignant pleural effusions complicated with possible acute on chronic diastolic CHF Metastatic prostate cancer with bone Mets Hypertension Diabetes mellitus type 2 Chronic steroid use Chronic left lower extremity edema Chronic pain secondary to metastatic prostate cancer Plan: Shortness of breath with hypoxia secondary to malignant pleural effusions complicated with possible acute on chronic diastolic CHF: Await echocardiogram. Continue diuresis. Case discussed at length with pulmonology. No need for thoracentesis at this time. Spoke at length again concerning advanced directives and advanced care planning. Will provide more information on hospice as this will likely be needed. Other option is to send home on home health with home oxygen then transition to hospice. Will discuss further with Oncology. Will obtain venous Doppler of the lower extremity to rule out DVT. Continue home medications. Will discuss further with Oncology. Possible discharge as early as today or tomorrow pending workup. Metastatic prostate cancer with bone Mets: Patient with terminal metastatic prostate cancer. Patient on chronic pain medication. Case discussed at length with oncology. Will provide education on hospice. Patient understands that his condition is terminal. Oncology recommends no further treatment plan Hypertension: Continue medication. Diabetes mellitus type 2: Continue Accu-Cheks and sliding scale Chronic steroid use: Continue the medication Chronic left lower extremity edema: Edema to the left lower extremity appears chronic. Will check venous Doppler to rule out DVT. Recent CT chest did not show pulmonary embolism. Chronic pain secondary to metastatic prostate cancer: Continue with fentanyl. Provide short-acting medication for breakthrough pain. Time Spent Managing Pts Care (In Minutes): 55
[2019-08-08 17:02] VITALS: BMI 20.4
[2019-08-08] MEDS ORDERED: METOPROLOL TAR 25 MG TAB PO SCH (18:00)
[2019-08-08 20:20] VITALS: BP 125/66
[2019-08-08 21:20] VITALS: TEMP 98.2
--- NOTE | 2019-08-09 09:51 | ECHO ---
HEIGHT: 5 ft 5 in WEIGHT: 122 lb 9.6 oz DATE OF STUDY: 08/08/[address]: Galo Mcclendon MD 2-DIMENSIONAL: YES M.MODE: YES DOPPLER: YES COLOR FLOW: YES TDS: NO PORTABLE: NO DEFINITY: NO BUBBLE STUDY: NO DIAGNOSIS: SHORTNESS OF BREATH, HISTORY OF PERICARDIAL EFFUSION CARDIAC HISTORY: CATHERIZATION: NO SURGERY: NO PROSTHETIC VALVE: NO PACEMAKER: NO MEASUREMENTS (cm) DIASTOLIC (NORMALS) SYSTOLIC (NORMALS) IVSd 1.0 (0.6-1.2) LA Diam 2.9 (1.9-4.0) LVEF 84% LVIDd 4.0 (3.5-5.7) LVIDs 1.9 (2.0-3.5) %FS 53% LVPWd 1.0 (0.6-1.2) Ao Diam 2.8 (2.0-3.7) 2 DIMENSIONAL ASSESSMENT: RIGHT ATRIUM: NORMAL LEFT ATRIUM: NORMAL RIGHT VENTRICLE: NORMAL LEFT VENTRICLE: NORMAL TRICUSPID VALVE: NORMAL MITRAL VALVE: NORMAL PULMONIC VALVE: NORMAL AORTIC VALVE: NORMAL PERICARDIAL EFFUSION: SMALL AORTIC ROOT: NORMAL LEFT VENTRICULAR WALL MOTION: NORMAL DOPPLER/COLOR FLOW: NORMAL COMMENTS: SMALL PERICARDIAL EFFUSION. NO TAMPONADE. NORMAL LEFT VENTRICULAR SIZE AND FUNCTION. TECHNOLOGIST: Mino RIVERA
[2019-08-10] MEDS ORDERED: FENTANYL 50 MCG/PATCH TD SCH (09:00)
[2019-08-10] MEDS ORDERED: FENTANYL 50 MCG TOP SCH (09:00)
== END 2019-08-08 23:15 | disposition hospice, home (50) ==
LOC: 2ND 16:41 → INTOOBSV 16:41
PROVIDERS: ADMIT Family Medicine; ATTEND Family Medicine
DX: R06.02 Shortness of breath (principal); R09.02 Hypoxemia; C61 Malignant neoplasm of prostate; C79.51 Secondary malignant neoplasm of bone; J91.0 Malignant pleural effusion; I11.0 Hypertensive heart disease with heart failure; I50.32 Chronic diastolic (congestive) heart failure; E11.9 Type 2 diabetes mellitus without complications; R60.0 Localized edema; G89.3 Neoplasm related pain (acute) (chronic); I31.3 Pericardial effusion (noninflammatory); Z20.828 Contact with and (suspected) exposure to other viral communicable diseases; Z79.52 Long term (current) use of systemic steroids; Z79.84 Long term (current) use of oral hypoglycemic drugs; Z79.891 Long term (current) use of opiate analgesic; Z79.899 Other long term (current) drug therapy
CPT/HCPCS: 93306; 85025; 80048; 36415 ×2; 83735; 84100; 82947 ×5; 80053; 84145; 71046; 93971; U0002; J1940 ×3; J1650 ×3; G0379; G0378 ×3; J7512